=== PATIENT | female | born 1950 | race Caucasian/White ===

== ENCOUNTER → 2016-10-21 | Outpatient (CLI) | payer MEDICARE, MEDICAID ==
[~2016-10-21] MED LIST: AMLO5TAB2 PO; ASP81TEC PO; CALC-172 PO; ENAL10TA PO; FURO20TA4 PO; HCT25T PO; METO-333 PO; MULT-608 PO; NF-ESOM40C PO; POTA20PA3 PO
--- NOTE | 2016-10-21 19:29 | Diagnostic Imaging Report ---
Left breast diagnostic mammogram. 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 COMPARISON: 10/16/15. The current study was also evaluated with a Computer Aided Detection (CAD) system. FINDINGS: The patient is unable to tolerate the mammogram very well with pain and shortness of breath and there is limitation in the mammographic views particularly visualizing the posterior third of the breast tissue. When compared to the prior exam, the heterogenously dense parenchyma is stable with stable nodular pattern. Some of the nodular opacities are related to skin moles marked with skin markers. IMPRESSION: Limited exam with no adverse development. Ultrasound evaluation pending. ACR BI-RADS Category 0: Incomplete. (Needs additional imaging evaluation). Result letter will be mailed to the patient. Note: At least 10% of breast cancer is not imaged by mammography. Dictated by: Dictated on workstation # [id number]
--- NOTE | 2016-10-21 19:38 | Diagnostic Imaging Report ---
EXAMINATION: Left breast ultrasound. INDICATION: History of DCIS. FINDINGS: There is a simple cyst measuring 7 mm in the left breast at the 7-8 o'clock position. No solid masses are seen in the retroareolar region or four quadrants of the left breast. IMPRESSION: No suspicious abnormality. ACR BI-RADS Category 1: Negative. Dictated by: Dictated on workstation # [id number]
== END ==
LOC: RAD 13:26
PROVIDERS: ATTEND Nurse Practitioner Adult Health
DX: D05.12 Intraductal carcinoma in situ of left breast (principal)
CPT/HCPCS: 76641

== ENCOUNTER → 2016-10-28 | Outpatient (CLI) | payer MEDICARE, MEDICAID ==
[2016-10-28 13:07] LABS: BASOPHILS # (AUTO) 0.1 10^3/uL (0.0-0.1); BASOPHILS % (AUTO) 1 % (0-10); EOSINOPHILS # (AUTO) 0.3 10^3/uL (0.0-0.3); EOSINOPHILS % (AUTO) 3 % (0-10); LYMPHOCYTES # (AUTO) 2.2 X 10^3 (1.0-4.0); LYMPHOCYTES % (AUTO) 25 % (12-44); MEAN CORPUSCULAR HEMOGLOBIN 28 PG (25-34); MEAN CORPUSCULAR HGB CONC 32 G/DL (32-36); MEAN CORPUSCULAR VOLUME 87 FL (80-99); MEAN PLATELET VOLUME 10.4 FL (7.4-10.4); MONOCYTES # (AUTO) 0.7 X 10^3 (0.0-1.0); MONOCYTES % (AUTO) 8 % (0-12); NEUTROPHILS # (AUTO) 5.7 X 10^3 (1.8-7.8); NEUTROPHILS % (AUTO) 64 % (42-75); PLATELET COUNT 312 10^3/uL (130-400); RED BLOOD COUNT 4.61 10^6/uL (4.35-5.85); RED CELL DISTRIBUTION WIDTH 16.3 % (10.0-14.5); WHITE BLOOD COUNT 8.9 10^3/uL (4.3-11.0)
[2016-10-28 13:36] LABS: ALANINE AMINOTRANSFERASE 41 U/L (0-55); ALBUMIN 4.3 G/DL (3.2-4.5); ANION GAP 13 MMOL/L (5-14); ASPARTATE AMINO TRANSFERASE 30 U/L (5-34); BILIRUBIN,TOTAL 0.6 MG/DL (0.1-1.0); BLOOD UREA NITROGEN 18 MG/DL (7-18); BUN/CREATININE RATIO 25; CARBON DIOXIDE 29 MMOL/L (21-32); CHLORIDE 100 MMOL/L (98-107); CREATININE SERUM 0.73 MG/DL (0.60-1.30); GFR ESTIMATED > 60; GLUCOSE 132 MG/DL (70-105); POTASSIUM 4.1 MMOL/L (3.6-5.0); SODIUM 142 MMOL/L (135-145); TOTAL PROTEIN 7.7 G/DL (6.4-8.2)
== END ==
LOC: ONC 12:53
PROVIDERS: ATTEND Internal Medicine Hematology & Oncology
DX: D05.12 Intraductal carcinoma in situ of left breast (principal)
CPT/HCPCS: 36415; 80053; 85025; 99213

== ENCOUNTER 2017-01-02 08:52 | Outpatient (RCR) | payer MEDICARE, MEDICAID | END 2017-01-13 16:00 | disposition home or self-care (01) | LOC: WOUNDCARE 08:52 | PROVIDERS: ATTEND Internal Medicine | DX: E11.622 Type 2 diabetes mellitus with other skin ulcer (principal); L97.222 Non-pressure chronic ulcer of left calf with fat layer exposed | CPT/HCPCS: 11042; 15271; 99212 ==

== ENCOUNTER → 2017-01-16 | Outpatient (CLI) | payer MEDICARE, MEDICAID | LOC: WOUNDCARE 09:01 | PROVIDERS: ATTEND Internal Medicine | DX: E11.622 Type 2 diabetes mellitus with other skin ulcer (principal); L97.222 Non-pressure chronic ulcer of left calf with fat layer exposed | CPT/HCPCS: 11042 ==

== ENCOUNTER → 2017-01-23 | Outpatient (CLI) | payer MEDICARE, MEDICAID | LOC: WOUNDCARE 08:52 | PROVIDERS: ATTEND Internal Medicine | DX: E11.622 Type 2 diabetes mellitus with other skin ulcer (principal); L97.222 Non-pressure chronic ulcer of left calf with fat layer exposed | CPT/HCPCS: 11042; 87070; 87075; 87077; 87186; 87205 ==

== ENCOUNTER → 2017-02-05 | Outpatient (CLI) | payer MEDICARE, MEDICAID | LOC: WOUNDCARE 15:54 | PROVIDERS: ATTEND Internal Medicine | DX: E11.622 Type 2 diabetes mellitus with other skin ulcer (principal); L97.222 Non-pressure chronic ulcer of left calf with fat layer exposed ==

== ENCOUNTER → 2017-02-06 | Outpatient (CLI) | payer MEDICARE, MEDICAID | LOC: WOUNDCARE 08:53 | PROVIDERS: ATTEND Internal Medicine | DX: E11.622 Type 2 diabetes mellitus with other skin ulcer (principal); L97.222 Non-pressure chronic ulcer of left calf with fat layer exposed | CPT/HCPCS: 11042 ==

== ENCOUNTER → 2017-02-13 | Outpatient (CLI) | payer MEDICARE, MEDICAID | LOC: WOUNDCARE 09:01 | PROVIDERS: ATTEND Internal Medicine | DX: E11.622 Type 2 diabetes mellitus with other skin ulcer (principal); L97.222 Non-pressure chronic ulcer of left calf with fat layer exposed | CPT/HCPCS: 15271 ==

== ENCOUNTER → 2017-02-20 | Outpatient (CLI) | payer MEDICARE, MEDICAID | LOC: WOUNDCARE 08:56 | PROVIDERS: ATTEND Internal Medicine | DX: E11.622 Type 2 diabetes mellitus with other skin ulcer (principal); L97.222 Non-pressure chronic ulcer of left calf with fat layer exposed | CPT/HCPCS: 11042 ==

== ENCOUNTER → 2017-02-27 | Outpatient (CLI) | payer MEDICARE, MEDICAID | LOC: WOUNDCARE 08:46 | PROVIDERS: ATTEND Internal Medicine | DX: E11.622 Type 2 diabetes mellitus with other skin ulcer (principal); L97.222 Non-pressure chronic ulcer of left calf with fat layer exposed | CPT/HCPCS: 15271 ==

== ENCOUNTER → 2017-03-06 | Outpatient (CLI) | payer MEDICARE, MEDICAID | LOC: WOUNDCARE 09:08 | PROVIDERS: ATTEND Internal Medicine | DX: E11.622 Type 2 diabetes mellitus with other skin ulcer (principal); L97.222 Non-pressure chronic ulcer of left calf with fat layer exposed | CPT/HCPCS: 11042 ==

== ENCOUNTER → 2017-03-13 | Outpatient (CLI) | payer MEDICARE, MEDICAID | LOC: WOUNDCARE 09:02 | PROVIDERS: ATTEND Internal Medicine | DX: E11.622 Type 2 diabetes mellitus with other skin ulcer (principal); L97.222 Non-pressure chronic ulcer of left calf with fat layer exposed | CPT/HCPCS: 11042 ==

== ENCOUNTER → 2017-03-20 | Outpatient (CLI) | payer MEDICARE, MEDICAID | LOC: WOUNDCARE 09:16 | PROVIDERS: ATTEND Internal Medicine | DX: E11.622 Type 2 diabetes mellitus with other skin ulcer (principal); L97.222 Non-pressure chronic ulcer of left calf with fat layer exposed | CPT/HCPCS: 11042 ==

== ENCOUNTER → 2017-03-27 | Outpatient (CLI) | payer MEDICARE, MEDICAID | LOC: WOUNDCARE 08:55 | PROVIDERS: ATTEND Internal Medicine | DX: E11.622 Type 2 diabetes mellitus with other skin ulcer (principal); L97.222 Non-pressure chronic ulcer of left calf with fat layer exposed | CPT/HCPCS: 15271 ==

== ENCOUNTER → 2017-04-03 | Outpatient (CLI) | payer MEDICARE, MEDICAID | LOC: WOUNDCARE 08:58 | PROVIDERS: ATTEND Internal Medicine | DX: E11.622 Type 2 diabetes mellitus with other skin ulcer (principal); L97.222 Non-pressure chronic ulcer of left calf with fat layer exposed | CPT/HCPCS: 11042; 87070; 87075; 87101; 87205 ==

== ENCOUNTER 2017-04-18 12:11 | Outpatient (RCR) | payer MEDICARE, MEDICAID ==
[2017-04-14 13:40] VITALS: BP 128/89
[~2017-04-18] VITALS: Ht 152.4 cm; Wt 83.0 kg
[2017-04-18 12:10] VITALS: BP 132/90
== END 2017-07-13 | disposition home or self-care (01) ==
LOC: SDC 12:11
PROVIDERS: ATTEND Nurse Practitioner
DX: Z45.2 Encounter for adjustment and management of vascular access device (principal)
CPT/HCPCS: 76937

== ENCOUNTER → 2017-05-01 | Outpatient (CLI) | payer MEDICARE, MEDICAID | LOC: WOUNDCARE 08:58 | PROVIDERS: ATTEND Internal Medicine | DX: E11.622 Type 2 diabetes mellitus with other skin ulcer (principal); L97.222 Non-pressure chronic ulcer of left calf with fat layer exposed | CPT/HCPCS: 11042 ==

== ENCOUNTER → 2017-05-02 | Outpatient (CLI) | payer MEDICARE, MEDICAID ==
--- NOTE | 2017-05-02 12:01 | Anesthesia-Procedure Note ---
Procedure Start/Stop Time Date of Procedure: May 02, 2017 Start Time: 11:30 Brief History Patient admitted from [facility] for difficult IV start and consent signed. 20g hep lock started to patient's left forearm by SRNA. Lore[place] Stop Time: 11:50 MESHA MELENDEZ CRNA May 02, 2017 12:01
== END ==
LOC: SDC 11:23
PROVIDERS: ATTEND Nurse Practitioner
DX: Z45.2 Encounter for adjustment and management of vascular access device (principal); Z79.2 Long term (current) use of antibiotics

== ENCOUNTER → 2017-05-15 | Outpatient (CLI) | payer MEDICARE, MEDICAID | LOC: WOUNDCARE 08:56 | PROVIDERS: ATTEND Internal Medicine | DX: E11.622 Type 2 diabetes mellitus with other skin ulcer (principal); L97.222 Non-pressure chronic ulcer of left calf with fat layer exposed | CPT/HCPCS: 11042 ==

== ENCOUNTER → 2017-05-22 | Outpatient (CLI) | payer MEDICARE, MEDICAID | LOC: WOUNDCARE 09:04 | PROVIDERS: ATTEND Internal Medicine | DX: E11.622 Type 2 diabetes mellitus with other skin ulcer (principal); L97.222 Non-pressure chronic ulcer of left calf with fat layer exposed | CPT/HCPCS: 11042 ==

== ENCOUNTER → 2017-05-29 | Outpatient (CLI) | payer MEDICARE, MEDICAID | LOC: WOUNDCARE 09:04 | PROVIDERS: ATTEND Nurse Practitioner | DX: E11.622 Type 2 diabetes mellitus with other skin ulcer (principal); L97.222 Non-pressure chronic ulcer of left calf with fat layer exposed | CPT/HCPCS: 11042 ==

== ENCOUNTER → 2017-06-05 | Outpatient (CLI) | payer MEDICARE, MEDICAID | LOC: WOUNDCARE 09:03 | PROVIDERS: ATTEND Internal Medicine | DX: E11.622 Type 2 diabetes mellitus with other skin ulcer (principal); L97.222 Non-pressure chronic ulcer of left calf with fat layer exposed | CPT/HCPCS: 11042 ==

== ENCOUNTER → 2017-06-12 | Outpatient (CLI) | payer MEDICARE, MEDICAID | LOC: WOUNDCARE 09:12 | PROVIDERS: ATTEND Internal Medicine | DX: L97.222 Non-pressure chronic ulcer of left calf with fat layer exposed (principal) | CPT/HCPCS: 11042 ==

== ENCOUNTER → 2017-06-17 | Outpatient (CLI) | payer MEDICARE, MEDICAID | LOC: WOUNDCARE 09:16 | PROVIDERS: ATTEND Nurse Practitioner | DX: E11.622 Type 2 diabetes mellitus with other skin ulcer (principal); L97.222 Non-pressure chronic ulcer of left calf with fat layer exposed | CPT/HCPCS: 11042 ==

== ENCOUNTER → 2017-06-26 | Outpatient (CLI) | payer MEDICARE, MEDICAID | LOC: WOUNDCARE 08:53 | PROVIDERS: ATTEND Internal Medicine | DX: E11.622 Type 2 diabetes mellitus with other skin ulcer (principal); L97.222 Non-pressure chronic ulcer of left calf with fat layer exposed | CPT/HCPCS: 11042; 87070; 87075; 87077; 87101; 87186; 87205 ==

== ENCOUNTER → 2017-07-03 | Outpatient (CLI) | payer MEDICARE, MEDICAID | LOC: WOUNDCARE 08:54 | PROVIDERS: ATTEND Internal Medicine | DX: E11.622 Type 2 diabetes mellitus with other skin ulcer (principal); L97.222 Non-pressure chronic ulcer of left calf with fat layer exposed | CPT/HCPCS: 11042 ==

== ENCOUNTER → 2017-07-10 | Outpatient (CLI) | payer MEDICARE, MEDICAID | LOC: WOUNDCARE 08:54 | PROVIDERS: ATTEND Internal Medicine | DX: E11.622 Type 2 diabetes mellitus with other skin ulcer (principal); L97.222 Non-pressure chronic ulcer of left calf with fat layer exposed | CPT/HCPCS: 11042 ==

== ENCOUNTER → 2017-07-17 | Outpatient (CLI) | payer MEDICARE, MEDICAID | LOC: WOUNDCARE 08:47 | PROVIDERS: ATTEND Internal Medicine | DX: E11.622 Type 2 diabetes mellitus with other skin ulcer (principal); L97.222 Non-pressure chronic ulcer of left calf with fat layer exposed | CPT/HCPCS: 11042 ==

== ENCOUNTER → 2017-07-24 | Outpatient (CLI) | payer MEDICARE, MEDICAID | LOC: WOUNDCARE 08:58 | PROVIDERS: ATTEND Internal Medicine | DX: L97.222 Non-pressure chronic ulcer of left calf with fat layer exposed (principal); E11.622 Type 2 diabetes mellitus with other skin ulcer | CPT/HCPCS: 11042 ==

== ENCOUNTER → 2017-07-31 | Outpatient (CLI) | payer MEDICARE, MEDICAID | LOC: WOUNDCARE 09:01 | PROVIDERS: ATTEND Internal Medicine | DX: E11.622 Type 2 diabetes mellitus with other skin ulcer (principal); L97.222 Non-pressure chronic ulcer of left calf with fat layer exposed | CPT/HCPCS: 11042; 87070; 87075; 87101; 87205 ==

== ENCOUNTER → 2017-08-07 | Outpatient (CLI) | payer MEDICARE, MEDICAID | LOC: WOUNDCARE 08:56 | PROVIDERS: ATTEND Internal Medicine | DX: E11.622 Type 2 diabetes mellitus with other skin ulcer (principal); L97.222 Non-pressure chronic ulcer of left calf with fat layer exposed | CPT/HCPCS: 11042 ==

== ENCOUNTER → 2017-08-14 | Outpatient (CLI) | payer MEDICARE, MEDICAID | LOC: WOUNDCARE 09:01 | PROVIDERS: ATTEND Internal Medicine | DX: E11.622 Type 2 diabetes mellitus with other skin ulcer (principal); L97.222 Non-pressure chronic ulcer of left calf with fat layer exposed | CPT/HCPCS: 11042 ==

== ENCOUNTER → 2017-08-21 | Outpatient (CLI) | payer MEDICARE, MEDICAID | LOC: WOUNDCARE 08:56 | PROVIDERS: ATTEND Internal Medicine | DX: E11.622 Type 2 diabetes mellitus with other skin ulcer (principal); L97.222 Non-pressure chronic ulcer of left calf with fat layer exposed | CPT/HCPCS: 11042 ==

== ENCOUNTER → 2017-08-28 | Outpatient (CLI) | payer MEDICARE, MEDICAID | LOC: WOUNDCARE 08:57 | PROVIDERS: ATTEND Internal Medicine | DX: E11.622 Type 2 diabetes mellitus with other skin ulcer (principal); L97.222 Non-pressure chronic ulcer of left calf with fat layer exposed | CPT/HCPCS: 11042 ==

== ENCOUNTER → 2017-09-04 | Outpatient (CLI) | payer MEDICARE, MEDICAID | LOC: WOUNDCARE 08:53 | PROVIDERS: ATTEND Nurse Practitioner | DX: E11.622 Type 2 diabetes mellitus with other skin ulcer (principal); L97.222 Non-pressure chronic ulcer of left calf with fat layer exposed | CPT/HCPCS: 11042 ==

== ENCOUNTER → 2017-09-11 | Outpatient (CLI) | payer MEDICARE, MEDICAID | LOC: WOUNDCARE 08:47 | PROVIDERS: ATTEND Internal Medicine | DX: E11.622 Type 2 diabetes mellitus with other skin ulcer (principal); L97.222 Non-pressure chronic ulcer of left calf with fat layer exposed | CPT/HCPCS: 11042; 87070; 87075; 87101; 87205 ==

== ENCOUNTER → 2017-09-18 | Outpatient (CLI) | payer MEDICARE, MEDICAID | LOC: WOUNDCARE 09:51 | PROVIDERS: ATTEND Internal Medicine | DX: E11.622 Type 2 diabetes mellitus with other skin ulcer (principal); L97.222 Non-pressure chronic ulcer of left calf with fat layer exposed | CPT/HCPCS: 11042 ==

== ENCOUNTER → 2017-09-25 | Outpatient (CLI) | payer MEDICARE, MEDICAID | LOC: WOUNDCARE 08:53 | PROVIDERS: ATTEND Internal Medicine | DX: E11.622 Type 2 diabetes mellitus with other skin ulcer (principal); L97.222 Non-pressure chronic ulcer of left calf with fat layer exposed | CPT/HCPCS: 11042 ==

== ENCOUNTER → 2017-10-09 | Outpatient (CLI) | payer MEDICARE, MEDICAID | LOC: WOUNDCARE 08:42 | PROVIDERS: ATTEND Internal Medicine | DX: E11.622 Type 2 diabetes mellitus with other skin ulcer (principal); L97.222 Non-pressure chronic ulcer of left calf with fat layer exposed | CPT/HCPCS: 11042 ==

== ENCOUNTER → 2017-10-20 | Outpatient (CLI) | payer MEDICARE, MEDICAID ==
--- NOTE | 2017-10-20 18:57 | Diagnostic Imaging Report ---
EXAMINATION: Ultrasound of The left breast, complete. INDICATION: DCIS. FINDINGS: It is my understanding that the patient has a diagnosis of DCIS. The previous left breast ultrasound exam of 10/21/2016 noted a 7 mm cyst in the left breast at the 7-8 o'clock position. There was no evidence of malignancy. On this exam, there is no discrete solid or cystic mass evident. There is no shadowing to suggest malignancy either. It is my understanding that the patient has declined mammogram. The patient does have cerebral palsy. IMPRESSION: There is no evidence for malignancy. ACR BI-RADS Category 1: Negative. Dictated by: Dictated on workstation # [id number]
== END ==
LOC: RAD 14:07
PROVIDERS: ATTEND Internal Medicine Hematology & Oncology
DX: D05.12 Intraductal carcinoma in situ of left breast (principal)
CPT/HCPCS: 76641

== ENCOUNTER → 2017-10-23 | Outpatient (CLI) | payer MEDICARE, MEDICAID | LOC: WOUNDCARE 09:02 | PROVIDERS: ATTEND Internal Medicine | DX: E11.622 Type 2 diabetes mellitus with other skin ulcer (principal); L97.222 Non-pressure chronic ulcer of left calf with fat layer exposed | CPT/HCPCS: 11042; 87070; 87075; 87101; 87205 ==

== ENCOUNTER → 2017-10-27 | Outpatient (CLI) | payer MEDICARE, MEDICAID ==
[2017-10-27 13:25] LABS: BASOPHILS # (AUTO) 0.1 10^3/uL (0.0-0.1); BASOPHILS % (AUTO) 1 % (0-10); EOSINOPHILS # (AUTO) 0.3 10^3/uL (0.0-0.3); EOSINOPHILS % (AUTO) 4 % (0-10); HEMATOCRIT 38 % (35-52); HEMOGLOBIN 11.9 G/DL (11.5-16.0); LYMPHOCYTES # (AUTO) 1.7 X 10^3 (1.0-4.0); LYMPHOCYTES % (AUTO) 22 % (12-44); MEAN CORPUSCULAR HEMOGLOBIN 25 PG (25-34); MEAN CORPUSCULAR HGB CONC 31 G/DL (32-36); MEAN CORPUSCULAR VOLUME 81 FL (80-99); MEAN PLATELET VOLUME 10.4 FL (7.4-10.4); MONOCYTES # (AUTO) 0.7 X 10^3 (0.0-1.0); MONOCYTES % (AUTO) 8 % (0-12); NEUTROPHILS # (AUTO) 5.3 X 10^3 (1.8-7.8); NEUTROPHILS % (AUTO) 66 % (42-75); PLATELET COUNT 307 10^3/uL (130-400); RED BLOOD COUNT 4.69 10^6/uL (4.35-5.85); RED CELL DISTRIBUTION WIDTH 17.7 % (10.0-14.5); WHITE BLOOD COUNT 8.1 10^3/uL (4.3-11.0)
[2017-10-27 13:45] LABS: ALANINE AMINOTRANSFERASE 38 U/L (0-55); ALBUMIN 4.4 GM/DL (3.2-4.5); ALKALINE PHOSPHATASE 62 U/L (40-136); BILIRUBIN,TOTAL 0.4 MG/DL (0.1-1.0); BUN/CREATININE RATIO 22; CARBON DIOXIDE 24 MMOL/L (21-32); CHLORIDE 101 MMOL/L (98-107); CREATININE SERUM 0.74 MG/DL (0.60-1.30); GFR ESTIMATED > 60; GLUCOSE 187 MG/DL (70-105); POTASSIUM 4.1 MMOL/L (3.6-5.0); SODIUM 140 MMOL/L (135-145); TOTAL PROTEIN 7.9 GM/DL (6.4-8.2)
== END ==
LOC: ONC 13:16
PROVIDERS: ATTEND Internal Medicine Hematology & Oncology
DX: Z08 Encounter for follow-up examination after completed treatment for malignant neoplasm (principal); Z85.3 Personal history of malignant neoplasm of breast; G80.9 Cerebral palsy, unspecified; E11.9 Type 2 diabetes mellitus without complications; I10 Essential (primary) hypertension; Z79.84 Long term (current) use of oral hypoglycemic drugs; Z79.899 Other long term (current) drug therapy; Z79.82 Long term (current) use of aspirin
CPT/HCPCS: 36415; 80053; 85025; 99213

== ENCOUNTER → 2017-11-13 | Outpatient (CLI) | payer MEDICARE, MEDICAID | LOC: WOUNDCARE 09:06 | PROVIDERS: ATTEND Internal Medicine | DX: E11.622 Type 2 diabetes mellitus with other skin ulcer (principal); L97.222 Non-pressure chronic ulcer of left calf with fat layer exposed | CPT/HCPCS: 11042 ==

== ENCOUNTER → 2017-12-23 | Outpatient (CLI) | payer MEDICARE, MEDICAID | LOC: WOUNDCARE 09:10 | PROVIDERS: ATTEND Nurse Practitioner | DX: E11.622 Type 2 diabetes mellitus with other skin ulcer (principal); L97.222 Non-pressure chronic ulcer of left calf with fat layer exposed | CPT/HCPCS: 11042 ==

== ENCOUNTER → 2018-01-08 | Outpatient (CLI) | payer MEDICARE, MEDICAID | LOC: WOUNDCARE 09:05 | PROVIDERS: ATTEND Nurse Practitioner | DX: E11.622 Type 2 diabetes mellitus with other skin ulcer (principal); L97.222 Non-pressure chronic ulcer of left calf with fat layer exposed | CPT/HCPCS: 99213 ==

== ENCOUNTER → 2018-01-29 | Outpatient (CLI) | payer MEDICARE, MEDICAID | LOC: WOUNDCARE 08:57 | PROVIDERS: ATTEND Nurse Practitioner | DX: E11.622 Type 2 diabetes mellitus with other skin ulcer (principal); L97.222 Non-pressure chronic ulcer of left calf with fat layer exposed | CPT/HCPCS: 99212 ==

== ENCOUNTER → 2018-02-26 | Outpatient (CLI) | payer MEDICARE, MEDICAID | LOC: WOUNDCARE 08:54 | PROVIDERS: ATTEND Nurse Practitioner | DX: E11.622 Type 2 diabetes mellitus with other skin ulcer (principal); L97.222 Non-pressure chronic ulcer of left calf with fat layer exposed | CPT/HCPCS: 99213 ==

== ENCOUNTER → 2018-03-26 | Outpatient (CLI) | payer MEDICARE, MEDICAID | LOC: WOUNDCARE 09:01 | PROVIDERS: ATTEND Nurse Practitioner | DX: E11.622 Type 2 diabetes mellitus with other skin ulcer (principal); L97.222 Non-pressure chronic ulcer of left calf with fat layer exposed | CPT/HCPCS: 11042 ==

== ENCOUNTER → 2018-04-02 | Outpatient (CLI) | payer MEDICARE, MEDICAID | LOC: WOUNDCARE 08:54 | PROVIDERS: ATTEND Nurse Practitioner | DX: E11.622 Type 2 diabetes mellitus with other skin ulcer (principal); L97.222 Non-pressure chronic ulcer of left calf with fat layer exposed | CPT/HCPCS: 11042 ==

== ENCOUNTER → 2018-04-16 | Outpatient (CLI) | payer MEDICARE, MEDICAID | LOC: WOUNDCARE 08:54 | PROVIDERS: ATTEND Nurse Practitioner | DX: E11.622 Type 2 diabetes mellitus with other skin ulcer (principal); L97.222 Non-pressure chronic ulcer of left calf with fat layer exposed | CPT/HCPCS: 11100; 87070; 87075; 87077; 87186; 87205; 88305 ==

== ENCOUNTER → 2018-04-21 | Outpatient (CLI) | payer MEDICARE, MEDICAID | LOC: WOUNDCARE 10:13 | PROVIDERS: ATTEND Nurse Practitioner | DX: E11.622 Type 2 diabetes mellitus with other skin ulcer (principal); L97.222 Non-pressure chronic ulcer of left calf with fat layer exposed; C44.799 Other specified malignant neoplasm of skin of left lower limb, including hip | CPT/HCPCS: 99212 ==

== ENCOUNTER 2018-05-12 05:30 | Outpatient (CLI) | payer MEDICARE, MEDICAID ==
[~2018-05-12] VITALS: Ht 152.4 cm; Wt 80.7 kg
[2018-05-12] MEDS ORDERED: PRED5DRO24 OU (15:09)
[2018-05-12] MEDS ORDERED: CALC-654 PO (15:09)
[2018-05-12] MEDS ORDERED: METF-399 PO (15:09)
[2018-05-12] MEDS ORDERED: MULT1TAB69 PO (15:09)
[2018-05-12] MEDS ORDERED: ASPI-999 PO (15:09)
[2018-05-12] MEDS ORDERED: OMEP20TA33 PO (15:09)
[2018-05-12] MEDS ORDERED: HYDR25TA4 PO (15:09)
[2018-05-12] MEDS ORDERED: METO-333 PO (15:09)
[2018-05-12] MEDS ORDERED: POTA10TA10 PO (15:09)
[2018-05-12] MEDS ORDERED: CETI10TA17 PO (15:09)
[2018-05-12] MEDS ORDERED: FURO20TA4 PO (15:09)
[2018-05-12] MEDS ORDERED: AMLO5TAB7 PO (15:09)
[2018-05-12] MEDS ORDERED: ENAL10TA PO (15:09)
[2018-05-14] MEDS ORDERED: ACHD5005 PO (10:16)
== END 2018-05-12 15:19 | disposition home or self-care (01) ==
LOC: PREOP 05:30
PROVIDERS: ATTEND Otolaryngology Otolaryngology/Facial Plastic Surgery
DX: Z01.818 Encounter for other preprocedural examination (principal)

== ENCOUNTER 2018-05-14 09:52 | Day surgery (SDC) | payer MEDICARE, MEDICAID ==
[~2018-05-14] VITALS: Ht 152.4 cm; Wt 81.2 kg
[~2018-05-14 09:52] MED LIST changes: +AMLO5TAB7 PO; +ASPI-999 PO; +CALC-654 PO; +CETI10TA17 PO; +HYDR25TA4 PO; +METF-399 PO; +MULT1TAB69 PO; +OMEP20TA33 PO; +POTA10TA10 PO; +PRED5DRO24 OU
--- NOTE | 2018-05-14 10:14 | Progress Note-Pre Operative ---
Pre-Operative Progress Note H&P Reviewed The H&P was reviewed, patient examined and no changes noted. 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
[2018-05-14] MEDS ORDERED: HYDROcodone/APAP 5 MG/325 MG (LORTAB) TAB PO ONE (10:15)
[2018-05-14] MEDS ORDERED: ACETAMINOPHEN 325 MG TABLET PO PRN (10:15)
[2018-05-14] MEDS ORDERED: ONDANSETRON 4 MG/2 ML (SDV) Z0FRAN IVP PRN ×2 (10:15→14:30)
[2018-05-14] MEDS ORDERED: morphine INJ 10 MG/ML 1ML (SYR OR VIAL) IVP PRN (10:15)
[2018-05-14] MEDS ORDERED: ACHD5005 PO (10:16)
--- NOTE | 2018-05-14 10:19 | Discharge Inst-Surgical ---
D/C Lap Instructions-LUL New, Converted, or Re-Newed RX: RX on Chart Follow Up Appt in 1 week Activity as tolerated No driving for 24 hours No driving while on pain medications wound: keep both areas clean and dry. leave opsite on leg wound until seen in office. Regular Diet Symptoms to Report: Fever over 101 degree F, Nausea/Vomiting Infection Signs and Symptoms to report: Increased redness, Foul odor of wound, Increased drainage Bathing instructions: May shower Operative Area Clean/Dry; Keep incision clean/dry If any problems/questions: Contact your physician or go to Emergency Room CEM MCCARTY MD May 14, 2018 10:18 am
[2018-05-14] MEDS ORDERED: ceFAZolin 2 GM IV Premixed 50 ML IV ONE (10:30)
[2018-05-14 10:35] VITALS: BP 146/81
[2018-05-14] MEDS: LACTATED RINGERS 1,000 ML IV PRN ×2 (10:50→14:17)
[2018-05-14] MEDS ORDERED: proPOfol 200 MG/20 ML (DIPRIVAN) VIAL IV ONE (10:56)
[2018-05-14] MEDS ORDERED: fentaNYL INJECTION 100 MCG/2 ML AMP ONE (10:57)
[2018-05-14] MEDS ORDERED: MIDAZOLAM 2 MG/2 ML (VERSED) VIAL ONE (10:57)
[2018-05-14] MEDS ORDERED: LIDOCAINE PF 2% 5 ML (XYLOCAINE) VIAL ONE (10:58)
[2018-05-14] MEDS ORDERED: BUP/EPI 0.5% 1:200,000 (SENSORCAINE) 30 ML VIAL ONE (11:13)
[2018-05-14] MEDS ORDERED: LIDOCAINE 1% INJ 20 ML 20 ML VIAL ONE (13:08)
[2018-05-14] MEDS ORDERED: EPINEPHrine INJECTION 1 MG/ML AMP ONE (13:25)
[2018-05-14] MEDS ORDERED: PROPOFOL INJECTION 50 ML IV ONE (13:45)
--- NOTE | 2018-05-14 14:04 | Progress Note-Post Operative ---
Post-Operative Progess Note Surgeon (s)/Decatizer (s) Surgeon CEM MCCARTY MD Decatizer: silas johansen HARDWARE DEVELOPER Pre-Operative Diagnosis basosquamous cell ca left leg(6x5cm) Post-Operative Diagnosis same Procedure & Operative Findings Date of Procedure 05/14/18 Procedure Performed/Findings excision squamous cell skni ca left leg(6x5cm) with STSG from left lat thigh. Anesthesia Type MAC with local Estimated Blood Loss Estimated blood loss (mL): minimal Specimens/Packing Specimens Removed left leg skin lesion. CEM MCCARTY MD May 14, 2018 2:04 pm
[2018-05-14] MEDS ORDERED: HYDROmorphone 2 MG/ML VIAL (DILAUDID) IV ONE (14:30)
[2018-05-14 14:45] VITALS: BP 133/63
[2018-05-14 15:15] VITALS: BP 144/64
[2018-05-14 15:50] VITALS: BP 144/64
--- NOTE | 2018-05-14 23:40 | OPERATIVE REPORT ---
DATE OF SERVICE: 05/14/2018 ATTENDING PRIMARY CARE PHYSICIAN: Dr. lA. PREOPERATIVE DIAGNOSIS: Squamous cell skin cancer, left lateral dean 6 x 5 cm in size. POSTOPERATIVE DIAGNOSIS: Squamous cell skin cancer, left lateral dean 6 x 5 cm in size. PROCEDURE: Excision, squamous cell skin cancer, left lower extremity with split-thickness skin graft taken from the left lateral thigh. SURGEON: Cem Blackwood MD FOOD SERVICE DRIVER: Hernando Walters APRN. ANESTHESIA: Monitored anesthesia care with local. ESTIMATED BLOOD LOSS: Minimal. FINDINGS: A large skin lesion through the layers of the skin, however, not encompassing the subcutaneous fat. The total dimensions of the lesion were 6 x 5 cm in size. DISPOSITION: The patient tolerated the procedure well. INDICATIONS: The patient is a 67-year-old female known to us. We had seen her in 2016 for benign skin tags of the middle back and right flank area, which were excised in the office. She had noticed a lesion of the lower leg for the past year and has been seeing wound care for a number of different conservative medical interventions; however, the lesion has grown slightly larger in size. 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 The lesion is approximately 6 x 5 cm in size. DESCRIPTION OF PROCEDURE: The patient was brought to the operating room, laid supine on the table. After adequate IV pain and sedative medications and monitored anesthesia care, the lesion and the left lateral thigh were prepped and draped in standard surgical fashion. 0.5% Marcaine with epinephrine was used to anesthetize the skin lesion and then 1% lidocaine was used to anesthetize the harvest site of the left lateral thigh. The dimensions of the lesion were then measured out and approximately 6 x 5 cm in size. This was measured out and fully excised using a 15 blade. Thus, we went all the way to the subcutaneous fat with no deep extensions identified. Good hemostasis was observed with electrocautery as well as direct pressure. We then proceeded with harvesting of the split-thickness skin graft taken from the left lateral thigh. In the anesthetized area, a 0.02 inch split-thickness skin graft was taken with a hydraulic dermatome 2 inches in width, approximately 2 inches in length as well. This was meshed 1:1.5 ratio. The harvest site was then covered with epinephrine-soaked sponges. The graft was then sutured to the edges of the wound excision site and to the base of the subcutaneous fat using interrupted 4-0 Prolene sutures. The graft was then covered with Tisseel fibrin glue followed by a nonstick followed by 4 x 4 gauze followed by a gauze wrap followed by Coban. Good hemostasis was observed on the donor site and was covered with a large Op-Site. The patient tolerated the procedure well. We will have her follow up in office in 1 week to reevaluate the wounds as well as to remove the sutures in a stepwise fashion and evaluate both of the wounds as well. She will be instructed to keep the areas clean and dry. Job ID: [id number] DocumentID: [id number] Dictated Date: 05/14/2018 14:12:20 Assistant Scientist Date: 05/14/2018 23:39:06 Dictated By: CEM BLACKWOOD MD
--- OUTSIDE RECORDS SUMMARY | 2018-05-15 00:30 | XMS REPORT | Clinical Summary ---
Author Author [facility] Organization [facility] Address Unknown Phone Unavailable Care Team Providers Care Level Vial Inspector And Tester Name Role Phone PCP Unavailable Allergies Not on File Current Medications Not on file Active Problems Not on file Social History Tobacco Use Types Packs/Day Years Used Date Never Assessed Sex Assigned at Date Recorded Not on file Last Filed Vital Signs Not on file Plan of Treatment Not on file Results Not on filefrom Last 3 Months
--- OUTSIDE RECORDS SUMMARY | 2018-05-15 00:33 | XMS REPORT | Continuity of Care Document ---
Author Author [facility] Organization [facility] Address Unknown Phone Unavailable Allergies Active Description Code Type Severity Reaction Onset Reported/Identified Relationship to Patient Clinical Status Yes amoxicillin trihydrate [id number] Drug Allergy Unknown N/A 06/27/2011 Yes potassium clavulanate [id number] Drug Allergy Unknown N/A 06/27/2011 Medications There is no data. 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 07/05/2011 Ot 252.00 HYPERPARATHYROIDISM, UNSPECIFIED 07/05/2011 Ot 311 DEPRESSIVE DISORDER NEC 07/05/2011 Ot 343.9 CEREBRAL PALSY NOS 07/05/2011 Ot 401.9 HYPERTENSION NOS 07/05/2011 Ot 530.81 ESOPHAGEAL REFLUX 07/05/2011 Ot V46.3 WHEELCHAIR DEPENDENCE 09/27/2014 RAMEZ, BOBAN N Ot 233.0 09/27/2014 RAMEZ, BOBAN N Ot 793.89 09/27/2014 RAMEZ, BOBAN N Ot 233.0 09/27/2014 RAMEZ, BOBAN N Ot 793.89 09/27/2014 RAMEZ, BOBAN N Ot 233.0 09/27/2014 RAMEZ, BOBAN N Ot 793.89 10/05/2014 RAMEZ, BOBAN N Ot 233.0 10/05/2014 RAMEZ, BOBAN N Ot 793.89 10/05/2014 RAMEZ, BOBAN N Ot 233.0 10/05/2014 RAMEZ, BOBAN N Ot 793.89 10/05/2014 RAMEZ, BOBAN N Ot 233.0 10/05/2014 RAMEZ, BOBAN N Ot 793.89 10/07/2014 RAMEZ, BOBAN N Ot 233.0 10/07/2014 LEONIDAS MYRICK N Ot 793.89 11/12/2014 LEONIDAS MYRICK N Ot 233.0 11/12/2014 LEONIDAS MYRICK N Ot 793.89 11/25/2014 SANDERSONCLAUS De La Rosa S DIRECTOR OPERATING Ot 250.00 11/25/2014 SANDERSONCLAUS S DIRECTOR OPERATING Ot 343.9 11/25/2014 SANDERSONCLAUS S DIRECTOR OPERATING Ot V13.89 11/25/2014 SANDERSONISSAAH S DIRECTOR OPERATING Ot V45.71 11/25/2014 SANDERSONCLAUS S DIRECTOR OPERATING Ot V58.69 11/25/2014 SANDERSONCLAUS S DIRECTOR OPERATING Ot V67.09 11/28/2014 SANDERSONCLAUS S DIRECTOR OPERATING Ot 250.00 11/28/2014 SANDERSONCLAUS S DIRECTOR OPERATING Ot 343.9 11/28/2014 SANDERSONCLAUS S DIRECTOR OPERATING Ot V13.89 11/28/2014 SANDERSON CLAUS S DIRECTOR OPERATING Ot V45.71 11/28/2014 SANDERSONCLAUS S DIRECTOR OPERATING Ot V58.69 11/28/2014 SANDERSONCLAUS S DIRECTOR OPERATING Ot V67.09 11/29/2014 LEONIDAS MYRICK N Ot 233.0 11/29/2014 LEONIDAS MYRICK N Ot 793.89 12/01/2014 LEONIDAS MYRICK N Ot 233.0 12/01/2014 LEONIDAS MYRICK N Ot 793.89 12/06/2014 SANDERSONCLAUS De La Rosa S DIRECTOR OPERATING Ot 250.00 12/06/2014 SANDERSONCLAUS S DIRECTOR OPERATING Ot 343.9 12/06/2014 SANDERSONCLAUS S DIRECTOR OPERATING Ot V13.89 12/06/2014 SANDERSONCLAUS S DIRECTOR OPERATING Ot V45.71 12/06/2014 SANDERSONCLAUS S DIRECTOR OPERATING Ot V58.69 12/06/2014 SANDERSON CLAUS S DIRECTOR OPERATING Ot V67.09 02/15/2015 SANDERSON CLAUS S DIRECTOR OPERATING Ot 793.89 10/16/2015 Ot 793.81 MAMMOGRAPHIC MICROCLACIFICATION 10/16/2015 Ot V76.12 OTH SCREEN MAMMO-MALIGN NEOPLASM OF JOVAN 10/16/2015 Ot 793.81 MAMMOGRAPHIC MICROCLACIFICATION 10/16/2015 Ot 793.81 MAMMOGRAPHIC MICROCLACIFICATION 10/16/2015 Ot 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 10/16/2015 Ot 252.1 HYPOPARATHYROIDISM 10/16/2015 Ot 401.9 HYPERTENSION NOS 10/16/2015 Ot 610.4 MAMMARY DUCT ECTASIA 10/16/2015 Ot 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 10/16/2015 Ot 272.0 PURE HYPERCHOLESTEROLEM 10/16/2015 Ot 343.9 CEREBRAL PALSY NOS 10/16/2015 Ot 401.9 HYPERTENSION NOS 10/16/2015 Ot 530.81 ESOPHAGEAL REFLUX 10/16/2015 Ot V16.3 FAMILY HX- BREAST MALIG 10/16/2015 Ot V58.66 LONG-TERM ( CURRENT) USE OF ASPIRIN 10/16/2015 Ot V58.69 OTH MED,LT, CURRENT USE 10/16/2015 Ot 174.9 MALIGN NEOPL BREAST NOS 10/16/2015 Ot V72.63 PRE- PROCEDURAL LABORATORY EXAMINATION 10/16/2015 Ot V74.8 SCREEN- BACTERIAL DIS NEC 10/16/2015 Ot 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 10/16/2015 Ot 343.9 CEREBRAL PALSY NOS 10/16/2015 Ot V45.71 ACQUIRED ABSENCE OF BREAST AND NIPPLE 10/16/2015 Ot V58.69 OTH MED,LT, CURRENT USE 10/16/2015 Ot 793.81 MAMMOGRAPHIC MICROCLACIFICATION 10/16/2015 Ot V15.89 HX-HEALTH HAZARDS NEC 10/16/2015 Ot V76.11 SCRN MAMMO- HIGH RISK PT, MALIGNANT NEOPL 10/16/2015 Ot 343.9 CEREBRAL PALSY NOS 10/16/2015 Ot 790.6 ABN BLOOD CHEMISTRY NEC 10/16/2015 Ot V10.3 HX OF BREAST MALIGNANCY 10/16/2015 Ot V45.71 ACQUIRED ABSENCE OF BREAST AND NIPPLE 10/16/2015 Ot V58.69 OTH MED,LT, CURRENT USE 10/16/2015 Ot V67.09 SURGERY FOLLOW-UP, OTHER SURGERY 10/16/2015 Ot 174.9 MALIGN NEOPL BREAST NOS 10/16/2015 Ot 793.81 MAMMOGRAPHIC MICROCLACIFICATION 10/16/2015 Ot 250.00 DIAB ENZO WO COMPL, TYPE II OR UNSPEC TY 10/16/2015 Ot 343.9 CEREBRAL PALSY NOS 10/16/2015 Ot 790.6 ABN BLOOD CHEMISTRY NEC 10/16/2015 Ot V10.3 HX OF BREAST MALIGNANCY 10/16/2015 Ot V45.71 ACQUIRED ABSENCE OF BREAST AND NIPPLE 10/16/2015 Ot V58.69 OTH MED,LT, CURRENT USE 10/16/2015 Ot V67.09 SURGERY FOLLOW-UP, OTHER SURGERY 10/16/2015 Ot 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 10/16/2015 Ot 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 10/16/2015 CLAUS SANDERSON DIRECTOR OPERATING Ot 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 10/16/2015 CLAUS SANDERSON S DIRECTOR OPERATING Ot 793.89 OTH (ABN) FINDINGS ON RADIOLOGICAL EXAMI 10/16/2015 LEONIDAS MYRICK Ot 250.00 DIAB ENZO WO COMPL, TYPE II OR UNSPEC TY 10/16/2015 LEONIDAS MYRICK Anurag Ot 343.9 CEREBRAL PALSY NOS 10/16/2015 LEONIDAS MYRICK Anurag Ot V10.3 HX OF BREAST MALIGNANCY 10/16/2015 LEONIDAS MYRICK Anurag Ot V45.71 ACQUIRED ABSENCE OF BREAST AND NIPPLE 10/16/2015 LEONIDAS MYRICK Anurag Ot V58.69 OTH MED,LT,CURRENT USE 10/16/2015 LEONIDAS MYRICK N Ot V67.09 SURGERY FOLLOW-UP, OTHER SURGERY 10/16/2015 CLAUS SANDERSON DIRECTOR OPERATING Ot 250.00 DIAB ENZO WO COMPL, TYPE II OR UNSPEC TY 10/16/2015 CLAUS SANDERSON S DIRECTOR OPERATING Ot 343.9 CEREBRAL PALSY NOS 10/16/2015 CLAUS SANDERSON DIRECTOR OPERATING Ot 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 10/16/2015 CLAUS SANDERSON DIRECTOR OPERATING Ot V13.89 PERSONAL HISTORY OF OTHER SPECIFIED DISE 10/16/2015 CLAUS SANDERSON DIRECTOR OPERATING Ot V45.71 ACQUIRED ABSENCE OF BREAST AND NIPPLE 10/16/2015 CLAUS SANDERSON DIRECTOR OPERATING Ot V58.69 OTH MED,LT,CURRENT USE 10/16/2015 CLAUS SANDERSON S DIRECTOR OPERATING Ot V67.09 SURGERY FOLLOW-UP, OTHER SURGERY 10/16/2015 CLAUS SANDERSON S DIRECTOR OPERATING Ot 793.89 OTH (ABN) FINDINGS ON RADIOLOGICAL EXAMI 10/16/2015 LEONIDAS MYRICK Anurag Ot 343.9 CEREBRAL PALSY NOS 10/16/2015 LEONIDAS MYRICK Ot V13.89 PERSONAL HISTORY OF OTHER SPECIFIED DISE 10/16/2015 LEONIDAS MYRICK Ot V45.71 ACQUIRED ABSENCE OF BREAST AND NIPPLE 10/16/2015 LEONIDAS MYRICK Ot V58.69 OTH MED,LT,CURRENT USE 10/16/2015 LEONIDAS MYRICK Ot V67.09 SURGERY FOLLOW-UP, OTHER SURGERY 10/16/2015 LEONIDAS MYRICK Ot 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 10/16/2015 LEONIDAS MYRICK Ot 793.89 OTH (ABN) FINDINGS ON RADIOLOGICAL EXAMI 10/16/2015 CLAUS SANDERSON DIRECTOR OPERATING Ot 250.00 DIAB ENZO WO COMPL, TYPE II OR UNSPEC TY 10/16/2015 CLAUS SANDERSON DIRECTOR OPERATING Ot 343.9 CEREBRAL PALSY NOS 10/16/2015 CLAUS SANDERSON DIRECTOR OPERATING Ot V13.89 PERSONAL HISTORY OF OTHER SPECIFIED DISE 10/16/2015 CLAUS SANDERSON DIRECTOR OPERATING Ot V45.71 ACQUIRED ABSENCE OF BREAST AND NIPPLE 10/16/2015 CLAUS SANDERSON DIRECTOR OPERATING Ot V58.69 OTH MED,LT,CURRENT USE 10/16/2015 CLAUS SANDERSON DIRECTOR OPERATING Ot V67.09 SURGERY FOLLOW-UP, OTHER SURGERY 10/18/2015 CLAUS SANDERSON DIRECTOR OPERATING Ot 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 10/19/2015 CLAUS SANDERSON DIRECTOR OPERATING Ot 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 11/02/2015 CLAUS SANDERSON DIRECTOR OPERATING Ot 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 11/07/2015 CLAUS SANDERSON DIRECTOR OPERATING Ot 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 2015 CLAUS SANDERSON DIRECTOR OPERATING Ot 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 2015 CLAUS SANDERSON DIRECTOR OPERATING Ot 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 11/23/2015 CLAUS SANDERSON DIRECTOR OPERATING Ot 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 11/30/2015 CLAUS SANDERSON DIRECTOR OPERATING Ot 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 12/06/2015 CLAUS SANDERSON DIRECTOR OPERATING Ot 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 10/18/2016 CLAUS SANDERSON [facility] Ot D05.10 INTRADUCTAL CARCINOMA IN SITU OF UNSPECI 10/21/2016 Ot 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 10/21/2016 Ot 252.1 HYPOPARATHYROIDISM 10/21/2016 Ot 401.9 HYPERTENSION NOS 10/21/2016 Ot 610.4 MAMMARY DUCT ECTASIA 10/21/2016 Ot 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 10/21/2016 Ot 272.0 PURE HYPERCHOLESTEROLEM 10/21/2016 Ot 343.9 CEREBRAL PALSY NOS 10/21/2016 Ot 401.9 HYPERTENSION NOS 10/21/2016 Ot 530.81 ESOPHAGEAL REFLUX 10/21/2016 Ot V16.3 FAMILY HX- BREAST MALIG 10/21/2016 Ot V58.66 LONG-TERM ( CURRENT) USE OF ASPIRIN 10/21/2016 Ot V58.69 OTH MED,LT, CURRENT USE 10/21/2016 Ot 174.9 MALIGN NEOPL BREAST NOS 10/21/2016 Ot V72.63 PRE- PROCEDURAL LABORATORY EXAMINATION 10/21/2016 Ot V74.8 SCREEN- BACTERIAL DIS NEC 10/21/2016 Ot 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 10/21/2016 Ot 343.9 CEREBRAL PALSY NOS 10/21/2016 Ot V45.71 ACQUIRED ABSENCE OF BREAST AND NIPPLE 10/21/2016 Ot V58.69 OTH MED,LT, CURRENT USE 10/21/2016 Ot 793.81 MAMMOGRAPHIC MICROCLACIFICATION 10/21/2016 Ot V15.89 HX-HEALTH HAZARDS NEC 10/21/2016 Ot V76.11 SCRN MAMMO- HIGH RISK PT, MALIGNANT NEOPL 10/21/2016 Ot 343.9 CEREBRAL PALSY NOS 10/21/2016 Ot 790.6 ABN BLOOD CHEMISTRY NEC 10/21/2016 Ot V10.3 HX OF BREAST MALIGNANCY 10/21/2016 Ot V45.71 ACQUIRED ABSENCE OF BREAST AND NIPPLE 10/21/2016 Ot V58.69 OTH MED,LT, CURRENT USE 10/21/2016 Ot V67.09 SURGERY FOLLOW-UP, OTHER SURGERY 10/21/2016 Ot 174.9 MALIGN NEOPL BREAST NOS 10/21/2016 Ot 793.81 MAMMOGRAPHIC MICROCLACIFICATION 10/21/2016 Ot 250.00 DIAB ENZO WO COMPL, TYPE II OR UNSPEC TY 10/21/2016 Ot 343.9 CEREBRAL PALSY NOS 10/21/2016 Ot 790.6 ABN BLOOD CHEMISTRY NEC 10/21/2016 Ot V10.3 HX OF BREAST MALIGNANCY 10/21/2016 Ot V45.71 ACQUIRED ABSENCE OF BREAST AND NIPPLE 10/21/2016 Ot V58.69 OTH MED,LT, CURRENT USE 10/21/2016 Ot V67.09 SURGERY FOLLOW-UP, OTHER SURGERY 10/21/2016 Ot 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 10/21/2016 Ot 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 10/21/2016 SANDERSONCLAUS De La Rosa S DIRECTOR OPERATING Ot 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 10/21/2016 SANDERSONCLAUS De La Rosa S DIRECTOR OPERATING Ot 793.89 OTH (ABN) FINDINGS ON RADIOLOGICAL EXAMI 10/21/2016 LEONIDAS MYRICK Anurag Ot 250.00 DIAB ENZO WO COMPL, TYPE II OR UNSPEC TY 10/21/2016 LEONIDAS MYRICK N Ot 343.9 CEREBRAL PALSY NOS 10/21/2016 LEONIDAS MYRICK N Ot V10.3 HX OF BREAST MALIGNANCY 10/21/2016 RAMEZLEONIDAS PETERSON N Ot V45.71 ACQUIRED ABSENCE OF BREAST AND NIPPLE 10/21/2016 LEONIDAS MYRICK Anurag Ot V58.69 OTH MED,LT,CURRENT USE 10/21/2016 LEONIDAS MYRICK N Ot V67.09 SURGERY FOLLOW-UP, OTHER SURGERY 10/21/2016 CLAUS SANDERSON S DIRECTOR OPERATING Ot 250.00 DIAB ENZO WO COMPL, TYPE II OR UNSPEC TY 10/21/2016 SANDERSONCLAUS De La Rosa S DIRECTOR OPERATING Ot 343.9 CEREBRAL PALSY NOS 10/21/2016 CLAUS SANDERSON DIRECTOR OPERATING Ot 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 10/21/2016 CLAUS SANDERSON DIRECTOR OPERATING Ot V13.89 PERSONAL HISTORY OF OTHER SPECIFIED DISE 10/21/2016 CLAUS SANDEROSN DIRECTOR OPERATING Ot V45.71 ACQUIRED ABSENCE OF BREAST AND NIPPLE 10/21/2016 CLAUS SANDERSON DIRECTOR OPERATING Ot V58.69 OTH MED,LT,CURRENT USE 10/21/2016 SANDERSONCLAUS De La Rosa S DIRECTOR OPERATING Ot V67.09 SURGERY FOLLOW-UP, OTHER SURGERY 10/21/2016 CLAUS SANDERSON S DIRECTOR OPERATING Ot 793.89 OTH (ABN) FINDINGS ON RADIOLOGICAL EXAMI 10/21/2016 LEONIDAS MYRICK Ot 343.9 CEREBRAL PALSY NOS 10/21/2016 LEONIDAS MYRICK Ot V13.89 PERSONAL HISTORY OF OTHER SPECIFIED DISE 10/21/2016 LEONIDAS MYRICK Ot V45.71 ACQUIRED ABSENCE OF BREAST AND NIPPLE 10/21/2016 LEONIDAS MYRICK Ot V58.69 OTH MED,LT,CURRENT USE 10/21/2016 LEONIDAS MYRICK Ot V67.09 SURGERY FOLLOW-UP, OTHER SURGERY 10/21/2016 LEONIDAS MYRICK Ot 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 10/21/2016 LEONIDAS MYRICK Ot 793.89 OTH (ABN) FINDINGS ON RADIOLOGICAL EXAMI 10/21/2016 CLAUS SANDERSON DIRECTOR OPERATING Ot 250.00 DIAB ENZO WO COMPL, TYPE II OR UNSPEC TY 10/21/2016 CLAUS SANDERSON DIRECTOR OPERATING Ot 343.9 CEREBRAL PALSY NOS 10/21/2016 CLAUS SANDERSON DIRECTOR OPERATING Ot V13.89 PERSONAL HISTORY OF OTHER SPECIFIED DISE 10/21/2016 CLAUS SANDERSON DIRECTOR OPERATING Ot V45.71 ACQUIRED ABSENCE OF BREAST AND NIPPLE 10/21/2016 CLAUS SANDERSON DIRECTOR OPERATING Ot V58.69 OTH MED,LT,CURRENT USE 10/21/2016 CLAUS SANDERSON DIRECTOR OPERATING Ot V67.09 SURGERY FOLLOW-UP, OTHER SURGERY 10/21/2016 CLAUS SANDERSON DIRECTOR OPERATING Ot 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 10/21/2016 CLAUS SANDERSON DIRECTOR OPERATING Ot 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 10/21/2016 CLAUS SANDERSON DIRECTOR OPERATING Ot Z85.3 PERSONAL HISTORY OF MALIGNANT NEOPLASM O 10/21/2016 CLAUS SANDERSON DIRECTOR OPERATING Ot Z85.3 PERSONAL HISTORY OF MALIGNANT NEOPLASM O 10/21/2016 CLAUS SANDERSON DIRECTOR OPERATING Ot Z85.3 PERSONAL HISTORY OF MALIGNANT NEOPLASM O 10/21/2016 CLAUS SANDERSON DIRECTOR OPERATING Ot Z85.3 PERSONAL HISTORY OF MALIGNANT NEOPLASM O 10/21/2016 CLAUS SANDERSON DIRECTOR OPERATING Ot Z85.3 PERSONAL HISTORY OF MALIGNANT NEOPLASM O 10/21/2016 CLAUS SANDERSON DIRECTOR OPERATING Ot Z85.3 PERSONAL HISTORY OF MALIGNANT NEOPLASM O 10/27/2016 CLAUS SANDERSON DIRECTOR OPERATING Ot 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 11/03/2016 LEONIDAS MYRICK N Ot 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 11/03/2016 LEONIDAS MYRICK N Ot 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 11/03/2016 LEONIDAS MYRICK N Ot 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 11/03/2016 LEONIDAS MYRICK N Ot 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 11/03/2016 LEONIDAS MYRICK N Ot 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 11/03/2016 LEONIDAS MYRICK N Ot 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 11/03/2016 LEONIDAS MYRICK N Ot 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 11/03/2016 LEONIDAS MYRICK N Ot 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 11/03/2016 LEONIDAS MYRICK N Ot 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 11/21/2016 CLAUS SANDERSON DIRECTOR OPERATING Ot 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 11/25/2016 CLAUS SADNERSON DIRECTOR OPERATING Ot 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 11/25/2016 LEONIDAS MYRICK N Ot 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 11/25/2016 CLAUS SANDERSON DIRECTOR OPERATING Ot 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 11/27/2016 LEONIDAS MYRICK N Ot 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 11/27/2016 LEONIDAS MYRICK N Ot 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 12/13/2016 CAMILO MONTANO MD Ot E11.622 TYPE 2 DIABETES MELLITUS WITH OTHER SKIN 12/13/2016 CAMILO MONTANO MD Ot L97.222 NON-PRESSURE CHRONIC ULCER OF LEFT CALF 01/10/2017 CAMILO MONTANO MD Ot E11.622 TYPE 2 DIABETES MELLITUS WITH OTHER SKIN 01/10/2017 CAMILO MONTANO MD Ot L97.222 NON-PRESSURE CHRONIC ULCER OF LEFT CALF 01/13/2017 CAMILO MONTANO MD Ot E11.622 TYPE 2 DIABETES MELLITUS WITH OTHER SKIN 01/13/2017 CAMILO MONTANO MD Ot L97.222 NON-PRESSURE CHRONIC ULCER OF LEFT CALF 01/26/2017 CAMILO MONTANO MD Ot E11.622 TYPE 2 DIABETES MELLITUS WITH OTHER SKIN 01/26/2017 CAMILO MONTANO MD Ot L97.222 NON-PRESSURE CHRONIC ULCER OF LEFT CALF 02/12/2017 CAMILO MONTANO MD, Ot E11.622 TYPE 2 DIABETES MELLITUS WITH OTHER SKIN 02/12/2017 CAMILO MONTANO MD Ot L97.222 NON-PRESSURE CHRONIC ULCER OF LEFT CALF 02/19/2017 CAMILO MONTANO MD, Ot E11.622 TYPE 2 DIABETES MELLITUS WITH OTHER SKIN 02/19/2017 CAMILO MONTANO MD Ot L97.222 NON-PRESSURE CHRONIC ULCER OF LEFT CALF 02/26/2017 CAMILO MONTANO MD, Ot E11.622 TYPE 2 DIABETES MELLITUS WITH OTHER SKIN 02/26/2017 CAMILO MONTANO MD Ot L97.222 NON-PRESSURE CHRONIC ULCER OF LEFT CALF 02/26/2017 CAMILO MONTANO MD, Ot E11.622 TYPE 2 DIABETES MELLITUS WITH OTHER SKIN 02/26/2017 CAMILO MONTANO MD Ot L97.222 NON-PRESSURE CHRONIC ULCER OF LEFT CALF 02/28/2017 CAMILO MONTANO MD Ot E11.622 TYPE 2 DIABETES MELLITUS WITH OTHER SKIN 02/28/2017 CAMILO MONTANO MD Ot L97.222 NON-PRESSURE CHRONIC ULCER OF LEFT CALF 03/04/2017 CAMILO MONTANO MD, Ot E11.622 TYPE 2 DIABETES MELLITUS WITH OTHER SKIN 03/04/2017 CAMILO MONTANO MD Ot L97.222 NON-PRESSURE CHRONIC ULCER OF LEFT CALF 03/05/2017 CAMILO MONTANO MD Ot E11.622 TYPE 2 DIABETES MELLITUS WITH OTHER SKIN 03/05/2017 CAMILO MONTANO MD Ot L97.222 NON-PRESSURE CHRONIC ULCER OF LEFT CALF 03/06/2017 CAMILO MONTANO MD Ot E11.622 TYPE 2 DIABETES MELLITUS WITH OTHER SKIN 03/06/2017 CAMILO MONTANO MD Ot L97.222 NON-PRESSURE CHRONIC ULCER OF LEFT CALF 03/07/2017 CAMILO MONTANO MD, Ot E11.622 TYPE 2 DIABETES MELLITUS WITH OTHER SKIN 03/07/2017 CAMILO MONTANO MD Ot L97.222 NON-PRESSURE CHRONIC ULCER OF LEFT CALF 03/12/2017 CAMILO MONTANO MD Ot E11.622 TYPE 2 DIABETES MELLITUS WITH OTHER SKIN 03/12/2017 CAMILO MONTANO MD Ot L97.222 NON-PRESSURE CHRONIC ULCER OF LEFT CALF 03/12/2017 CAMILO MONTANO MD, Ot E11.622 TYPE 2 DIABETES MELLITUS WITH OTHER SKIN 03/12/2017 CAMILO MONTANO MD, Ot L97.222 NON-PRESSURE CHRONIC ULCER OF LEFT CALF 03/12/2017 CAMILO MONTANO MD, Ot E11.622 TYPE 2 DIABETES MELLITUS WITH OTHER SKIN 03/12/2017 CAMILO MONTANO MD Ot L97.222 NON-PRESSURE CHRONIC ULCER OF LEFT CALF 03/18/2017 CAMILO MNOTANO MD, Ot E11.622 TYPE 2 DIABETES MELLITUS WITH OTHER SKIN 03/18/2017 CAMILO MONTANO MD Ot L97.222 NON-PRESSURE CHRONIC ULCER OF LEFT CALF 03/19/2017 CAMILO MONTANO MD, Ot E11.622 TYPE 2 DIABETES MELLITUS WITH OTHER SKIN 03/19/2017 CAMLIO MONTANO MD, Ot L97.222 NON-PRESSURE CHRONIC ULCER OF LEFT CALF 03/19/2017 CAMILO MONTANO MD, Ot E11.622 TYPE 2 DIABETES MELLITUS WITH OTHER SKIN 03/19/2017 CAMILO MONTANO MD Ot L97.222 NON-PRESSURE CHRONIC ULCER OF LEFT CALF 03/20/2017 CAMILO MONTANO MD, Ot E11.622 TYPE 2 DIABETES MELLITUS WITH OTHER SKIN 03/20/2017 CAMILO MONTANO MD Ot L97.222 NON-PRESSURE CHRONIC ULCER OF LEFT CALF 03/25/2017 CAMILO MONTANO MD, Ot E11.622 TYPE 2 DIABETES MELLITUS WITH OTHER SKIN 03/25/2017 CAMILO MONTANO MD Ot L97.222 NON-PRESSURE CHRONIC ULCER OF LEFT CALF 03/27/2017 CAMILO MONTANO MD, Ot E11.622 TYPE 2 DIABETES MELLITUS WITH OTHER SKIN 03/27/2017 CAMILO MONTANO MD Ot L97.222 NON-PRESSURE CHRONIC ULCER OF LEFT CALF 03/28/2017 CAMILO MONTANO MD Ot E11.622 TYPE 2 DIABETES MELLITUS WITH OTHER SKIN 03/28/2017 CAMILO MONTANO MD Ot L97.222 NON-PRESSURE CHRONIC ULCER OF LEFT CALF 03/28/2017 CAMILO MONTANO MD, Ot E11.622 TYPE 2 DIABETES MELLITUS WITH OTHER SKIN 03/28/2017 CAMILO MONTANO MD Ot L97.222 NON-PRESSURE CHRONIC ULCER OF LEFT CALF 04/02/2017 CAMILO MONTANO MD Ot E11.622 TYPE 2 DIABETES MELLITUS WITH OTHER SKIN 04/02/2017 CAMILO MONTANO MD, Ot L97.222 NON-PRESSURE CHRONIC ULCER OF LEFT CALF 04/02/2017 CAMILO MONTANO MD, Ot E11.622 TYPE 2 DIABETES MELLITUS WITH OTHER SKIN 04/02/2017 CAMILO MONTANO MD, Ot L97.222 NON-PRESSURE CHRONIC ULCER OF LEFT CALF 04/04/2017 CAMILO MONTANO MD, Ot E11.622 TYPE 2 DIABETES MELLITUS WITH OTHER SKIN 04/04/2017 CAMILO MONTANO MD, Ot L97.222 NON-PRESSURE CHRONIC ULCER OF LEFT CALF 04/09/2017 CAMILO MONTANO MD, Ot E11.622 TYPE 2 DIABETES MELLITUS WITH OTHER SKIN 04/09/2017 CAMILO MONTANO MD, Ot L97.222 NON-PRESSURE CHRONIC ULCER OF LEFT CALF 04/09/2017 CAMILO MONTANO MD, Ot E11.622 TYPE 2 DIABETES MELLITUS WITH OTHER SKIN 04/09/2017 CAMILO MONTANO MD, Ot L97.222 NON-PRESSURE CHRONIC ULCER OF LEFT CALF 04/10/2017 CAMILO MONTANO MD, Ot E11.622 TYPE 2 DIABETES MELLITUS WITH OTHER SKIN 04/10/2017 CAMILO MONTANO MD, Ot L97.222 NON-PRESSURE CHRONIC ULCER OF LEFT CALF 04/10/2017 CAMILO MONTANO MD, Ot E11.622 TYPE 2 DIABETES MELLITUS WITH OTHER SKIN 04/10/2017 CAMILO MONTANO MD Ot L97.222 NON-PRESSURE CHRONIC ULCER OF LEFT CALF 04/11/2017 CAMILO MONTANO MD, Ot E11.622 TYPE 2 DIABETES MELLITUS WITH OTHER SKIN 04/11/2017 CAMILO MONTANO MD, Ot L97.222 NON-PRESSURE CHRONIC ULCER OF LEFT CALF 04/15/2017 CAMILO MONTANO MD, Ot E11.622 TYPE 2 DIABETES MELLITUS WITH OTHER SKIN 04/15/2017 CAMILO MONTANO MD, Ot L97.222 NON-PRESSURE CHRONIC ULCER OF LEFT CALF 04/16/2017 CAMILO MONTANO MD, Ot E11.622 TYPE 2 DIABETES MELLITUS WITH OTHER SKIN 04/16/2017 CAMILO MONTANO MD Ot L97.222 NON-PRESSURE CHRONIC ULCER OF LEFT CALF 04/17/2017 CAMILO MONTANO MD, Ot E11.622 TYPE 2 DIABETES MELLITUS WITH OTHER SKIN 04/17/2017 CAMILO MONTANO MD Ot L97.222 NON-PRESSURE CHRONIC ULCER OF LEFT CALF 04/18/2017 STEFFANIE MORROW APRN Ot Z45.2 ENCOUNTER FOR ADJUSTMENT AND MANAGEMENT 04/18/2017 STEFFANIE MORROW APRN Ot Z45.2 ENCOUNTER FOR ADJUSTMENT AND MANAGEMENT 04/22/2017 STEFFANIE 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 Z45.2 ENCOUNTER FOR ADJUSTMENT AND MANAGEMENT 04/25/2017 CAMILO MONTANO MD, Ot E11.622 TYPE 2 DIABETES MELLITUS WITH OTHER SKIN 04/25/2017 CAMILO MONTANO MD, Ot L97.222 NON-PRESSURE CHRONIC ULCER OF LEFT CALF 04/28/2017 CAMILO MONTANO MD, Ot E11.622 TYPE 2 DIABETES MELLITUS WITH OTHER SKIN 04/28/2017 CAMILO MONTANO MD Ot L97.222 NON-PRESSURE CHRONIC ULCER OF LEFT CALF 04/30/2017 CAMILO MONTANO MD, Ot E11.622 TYPE 2 DIABETES MELLITUS WITH OTHER SKIN 04/30/2017 CAMILO MONTANO MD Ot L97.222 NON-PRESSURE CHRONIC ULCER OF LEFT CALF 05/05/2017 CAMILO MONTANO MD, Ot E11.622 TYPE 2 DIABETES MELLITUS WITH OTHER SKIN 05/05/2017 CAMILO MONTANO MD, Ot L97.222 NON-PRESSURE CHRONIC ULCER OF LEFT CALF 05/07/2017 CAMILO MONTANO MD, Ot E11.622 TYPE 2 DIABETES MELLITUS WITH OTHER SKIN 05/07/2017 CAMILO MONTANO MD Ot L97.222 NON-PRESSURE CHRONIC ULCER OF LEFT CALF 05/12/2017 CAMILO MONTANO MD, Ot E11.622 TYPE 2 DIABETES MELLITUS WITH OTHER SKIN 05/12/2017 CAMILO MONTANO MD Ot L97.222 NON-PRESSURE CHRONIC ULCER OF LEFT CALF 05/12/2017 STEFFANIE 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 Z45.2 ENCOUNTER FOR ADJUSTMENT AND MANAGEMENT 05/13/2017 CAMILO MONTANO MD, Ot E11.622 TYPE 2 DIABETES MELLITUS WITH OTHER SKIN 05/13/2017 CAMILO MONTANO MD, Ot L97.222 NON-PRESSURE CHRONIC ULCER OF LEFT CALF 05/13/2017 CAMILO MONTANO MD Ot Z79.2 MANAGER MEDICAID (CURRENT) USE OF ANTIBIOTICS 05/13/2017 CAMILO MONTANO MD, Ot E11.622 TYPE 2 DIABETES MELLITUS WITH OTHER SKIN 05/13/2017 CAMILO MONTANO MD, Ot L97.222 NON-PRESSURE CHRONIC ULCER OF LEFT CALF 05/16/2017 CAMILO MONTANO MD, Ot E11.622 TYPE 2 DIABETES MELLITUS WITH OTHER SKIN 05/16/2017 CAMILO MONTANO MD Ot L97.222 NON-PRESSURE CHRONIC ULCER OF LEFT CALF 05/19/2017 CAMILO MONTANO MD Ot E11.622 TYPE 2 DIABETES MELLITUS WITH OTHER SKIN 05/19/2017 CAMILO MONTANO MD Ot L97.222 NON-PRESSURE CHRONIC ULCER OF LEFT CALF 05/19/2017 STEFFANIE MORROW APRN Ot Z45.2 ENCOUNTER FOR ADJUSTMENT AND MANAGEMENT 05/21/2017 CAMILO MONTANO MD, Ot E11.622 TYPE 2 DIABETES MELLITUS WITH OTHER SKIN 05/21/2017 CAMILO MONTANO MD Ot L97.222 NON-PRESSURE CHRONIC ULCER OF LEFT CALF 05/22/2017 STEFFANIE MORROW APRN Ot Z45.2 ENCOUNTER FOR ADJUSTMENT AND MANAGEMENT 05/22/2017 STEFFANIE MORROW APRN Ot Z79.2 MANAGER MEDICAID (CURRENT) USE OF ANTIBIOTICS 05/26/2017 CAMILO MONTANO MD, Ot E11.622 TYPE 2 DIABETES MELLITUS WITH OTHER SKIN 05/26/2017 CAMILO MONTANO MD, Ot L97.222 NON-PRESSURE CHRONIC ULCER OF LEFT CALF 05/29/2017 CAMILO MONTANO MD, Ot E11.622 TYPE 2 DIABETES MELLITUS WITH OTHER SKIN 05/29/2017 CAMILO MONTANO MD, Ot L97.222 NON-PRESSURE CHRONIC ULCER OF LEFT CALF 06/04/2017 STEFFANIE MORROW APRN Ot E11.622 TYPE 2 DIABETES MELLITUS WITH OTHER SKIN 06/04/2017 STEFFANIE MORROW APRN Ot L97.222 NON-PRESSURE CHRONIC ULCER OF LEFT CALF 06/04/2017 CAMILO MONTANO MD, Ot E11.622 TYPE 2 DIABETES MELLITUS WITH OTHER SKIN 06/04/2017 CAMILO MONTANO MD, Ot L97.222 NON-PRESSURE CHRONIC ULCER OF LEFT CALF 06/06/2017 CAMILO MONTANO MD, Ot E11.622 TYPE 2 DIABETES MELLITUS WITH OTHER SKIN 06/06/2017 CAMILO MONTANO MD Ot L97.222 NON-PRESSURE CHRONIC ULCER OF LEFT CALF 06/06/2017 CAMILO MONTANO MD, Ot E11.622 TYPE 2 DIABETES MELLITUS WITH OTHER SKIN 06/06/2017 CAMILO MONTANO MD Ot L97.222 NON-PRESSURE CHRONIC ULCER OF LEFT CALF 06/06/2017 CAMILO MONTANO MD, Ot E11.622 TYPE 2 DIABETES MELLITUS WITH OTHER SKIN 06/06/2017 CAMILO MONTANO MD Ot L97.222 NON-PRESSURE CHRONIC ULCER OF LEFT CALF 06/06/2017 CAMILO MONTANO MD, Ot E11.622 TYPE 2 DIABETES MELLITUS WITH OTHER SKIN 06/06/2017 CAMIOL MONTANO MD Ot L97.222 NON-PRESSURE CHRONIC ULCER OF LEFT CALF 06/06/2017 CAMILO MONTANO MD, Ot Z79.2 MANAGER MEDICAID (CURRENT) USE OF ANTIBIOTICS 06/06/2017 STEFFANIE MORROW APRN Ot Z45.2 ENCOUNTER FOR ADJUSTMENT AND MANAGEMENT 06/11/2017 CAMILO MONTANO MD, Ot E11.622 TYPE 2 DIABETES MELLITUS WITH OTHER SKIN 06/11/2017 CAMILO MONTANO MD, Ot L97.222 NON-PRESSURE CHRONIC ULCER OF LEFT CALF 06/12/2017 CAMILO MONTANO MD, Ot E11.622 TYPE 2 DIABETES MELLITUS WITH OTHER SKIN 06/12/2017 CAMILO MONTANO MD, Ot L97.222 NON-PRESSURE CHRONIC ULCER OF LEFT CALF 06/18/2017 STEFFANIE MORROW APRN Ot E11.622 TYPE 2 DIABETES MELLITUS WITH OTHER SKIN 06/18/2017 STEFFANIE MORROW APRN Ot L97.222 NON-PRESSURE CHRONIC ULCER OF LEFT CALF 06/20/2017 CAMILO MONTANO MD, Ot E11.622 TYPE 2 DIABETES MELLITUS WITH OTHER SKIN 06/20/2017 CAMILO MONTANO MD, Ot L97.222 NON-PRESSURE CHRONIC ULCER OF LEFT CALF 06/23/2017 STEFFANIE MORROW APRN Ot E11.622 TYPE 2 DIABETES MELLITUS WITH OTHER SKIN 06/23/2017 STEFFANIE MORROW APRN Ot L97.222 NON-PRESSURE CHRONIC ULCER OF LEFT CALF 06/24/2017 CAMILO MONTANO MD, Ot E11.622 TYPE 2 DIABETES MELLITUS WITH OTHER SKIN 06/24/2017 CAMILO MONTANO MD, Ot L97.222 NON-PRESSURE CHRONIC ULCER OF LEFT CALF 06/26/2017 CAMILO MONTANO MD, Ot E11.622 TYPE 2 DIABETES MELLITUS WITH OTHER SKIN 06/26/2017 CAMILO MONTANO MD Ot L97.222 NON-PRESSURE CHRONIC ULCER OF LEFT CALF 06/27/2017 STEFFANIE MORROW APRN Ot E11.622 TYPE 2 DIABETES MELLITUS WITH OTHER SKIN 06/27/2017 STEFFANIE MORROW APRN Ot L97.222 NON-PRESSURE CHRONIC ULCER OF LEFT CALF 06/27/2017 CAMILO MONTANO MD, Ot E11.622 TYPE 2 DIABETES MELLITUS WITH OTHER SKIN 06/27/2017 CAMILO MONTANO MD Ot L97.222 NON-PRESSURE CHRONIC ULCER OF LEFT CALF 07/01/2017 CAMILO MONTANO MD, Ot E11.622 TYPE 2 DIABETES MELLITUS WITH OTHER SKIN 07/01/2017 CAMILO MONTANO MD, Ot L97.222 NON-PRESSURE CHRONIC ULCER OF LEFT CALF 07/01/2017 CAMILO MONTANO MD, Ot E11.622 TYPE 2 DIABETES MELLITUS WITH OTHER SKIN 07/01/2017 CAMILO MONTANO MD, Ot L97.222 NON-PRESSURE CHRONIC ULCER OF LEFT CALF 07/04/2017 CAMILO MONTANO MD, Ot E11.622 TYPE 2 DIABETES MELLITUS WITH OTHER SKIN 07/04/2017 CAMILO MONTANO MD, Ot L97.222 NON-PRESSURE CHRONIC ULCER OF LEFT CALF 07/04/2017 CAMILO MONTANO MD, Ot E11.622 TYPE 2 DIABETES MELLITUS WITH OTHER SKIN 07/04/2017 CAMILO MONTANO MD, Ot L97.222 NON-PRESSURE CHRONIC ULCER OF LEFT CALF 07/07/2017 CAMILO MONTANO MD, Ot L97.222 NON-PRESSURE CHRONIC ULCER OF LEFT CALF 07/09/2017 STEFFANIE MORROW APRN Ot E11.622 TYPE 2 DIABETES MELLITUS WITH OTHER SKIN 07/09/2017 STEFFANIE 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 L97.222 NON-PRESSURE CHRONIC ULCER OF LEFT CALF 07/09/2017 STEFFANIE MORROW APRN Ot E11.622 TYPE 2 DIABETES MELLITUS WITH OTHER SKIN 07/09/2017 STEFFANIE 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 L97.222 NON-PRESSURE CHRONIC ULCER OF LEFT CALF 07/09/2017 CAMILO MONTANO MD, Ot E11.622 TYPE 2 DIABETES MELLITUS WITH OTHER SKIN 07/09/2017 CAMILO MONTANO MD, Ot L97.222 NON-PRESSURE CHRONIC ULCER OF LEFT CALF 07/10/2017 CAMILO MONTANO MD, Ot E11.622 TYPE 2 DIABETES MELLITUS WITH OTHER SKIN 07/10/2017 CAMILO MONTANO MD Ot L97.222 NON-PRESSURE CHRONIC ULCER OF LEFT CALF 07/13/2017 STEFFANIE 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 Z45.2 ENCOUNTER FOR ADJUSTMENT AND MANAGEMENT 07/14/2017 CAMILO MONTANO MD, Ot E11.622 TYPE 2 DIABETES MELLITUS WITH OTHER SKIN 07/14/2017 CAMILO MONTANO MD Ot L97.222 NON-PRESSURE CHRONIC ULCER OF LEFT CALF 07/14/2017 STEFFANIE MORROW APRN Ot Z45.2 ENCOUNTER FOR ADJUSTMENT AND MANAGEMENT 07/17/2017 CAMILO MONTANO MD Ot L97.222 NON-PRESSURE CHRONIC ULCER OF LEFT CALF 07/18/2017 CAMILO MONTANO MD, Ot E11.622 TYPE 2 DIABETES MELLITUS WITH OTHER SKIN 07/18/2017 CHARMAINE MD, CAMILO D Ot L97.222 NON-PRESSURE CHRONIC ULCER OF LEFT CALF 07/23/2017 CAMILO MONTANO MD Ot L97.222 NON-PRESSURE CHRONIC ULCER OF LEFT CALF 07/25/2017 CAMILO MONTANO MD, Ot E11.622 TYPE 2 DIABETES MELLITUS WITH OTHER SKIN 07/25/2017 CAMILO MONTANO MD Ot L97.222 NON-PRESSURE CHRONIC ULCER OF LEFT CALF 07/31/2017 CAMILO MONTANO MD Ot E11.622 TYPE 2 DIABETES MELLITUS WITH OTHER SKIN 07/31/2017 CAMILO MONTANO MD Ot L97.222 NON-PRESSURE CHRONIC ULCER OF LEFT CALF 07/31/2017 CAMILO MONTANO MD, Ot E11.622 TYPE 2 DIABETES MELLITUS WITH OTHER SKIN 07/31/2017 CAMILO MONTANO MD Ot L97.222 NON-PRESSURE CHRONIC ULCER OF LEFT CALF 08/01/2017 STEFFANIE MORROW APRN Ot E11.622 TYPE 2 DIABETES MELLITUS WITH OTHER SKIN 08/01/2017 STEFFANIE 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 L97.222 NON-PRESSURE CHRONIC ULCER OF LEFT CALF 08/01/2017 CAMILO MONTANO MD Ot E11.622 TYPE 2 DIABETES MELLITUS WITH OTHER SKIN 08/01/2017 CAMILO MONTANO MD Ot L97.222 NON-PRESSURE CHRONIC ULCER OF LEFT CALF 08/01/2017 CAMILO MONTANO MD, Ot E11.622 TYPE 2 DIABETES MELLITUS WITH OTHER SKIN 08/01/2017 CAMILO MONTANO MD Ot L97.222 NON-PRESSURE CHRONIC ULCER OF LEFT CALF 08/08/2017 CAMILO MONTANO MD Ot E11.622 TYPE 2 DIABETES MELLITUS WITH OTHER SKIN 08/08/2017 CAMILO MONTANO MD Ot L97.222 NON-PRESSURE CHRONIC ULCER OF LEFT CALF 08/08/2017 CAMILO MONTANO MD Ot E11.622 TYPE 2 DIABETES MELLITUS WITH OTHER SKIN 08/08/2017 CAMILO MONTANO MD Ot L97.222 NON-PRESSURE CHRONIC ULCER OF LEFT CALF 08/18/2017 CAMILO MONTANO MD Ot E11.622 TYPE 2 DIABETES MELLITUS WITH OTHER SKIN 08/18/2017 CAMILO MONTANO MD Ot L97.222 NON-PRESSURE CHRONIC ULCER OF LEFT CALF 08/19/2017 CAMILO MONTANO MD Ot E11.622 TYPE 2 DIABETES MELLITUS WITH OTHER SKIN 08/19/2017 CAMILO MONTANO MD Ot L97.222 NON-PRESSURE CHRONIC ULCER OF LEFT CALF 08/20/2017 CAMILO MONTANO MD, Ot E11.622 TYPE 2 DIABETES MELLITUS WITH OTHER SKIN 08/20/2017 CAMILO MONTANO MD Ot L97.222 NON-PRESSURE CHRONIC ULCER OF LEFT CALF 08/25/2017 CAMILO MONTANO MD, Ot E11.622 TYPE 2 DIABETES MELLITUS WITH OTHER SKIN 08/25/2017 CAMILO MONTANO MD Ot L97.222 NON-PRESSURE CHRONIC ULCER OF LEFT CALF 08/28/2017 STEFFANIE 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 E11.622 TYPE 2 DIABETES MELLITUS WITH OTHER SKIN 08/28/2017 STEFFANIE 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 L97.222 NON-PRESSURE CHRONIC ULCER OF LEFT CALF 08/28/2017 CAMILO MONTANO MD, Ot E11.622 TYPE 2 DIABETES MELLITUS WITH OTHER SKIN 08/28/2017 CAMILO MONTANO MD Ot L97.222 NON-PRESSURE CHRONIC ULCER OF LEFT CALF 08/29/2017 CAMILO MONTANO MD, Ot E11.622 TYPE 2 DIABETES MELLITUS WITH OTHER SKIN 08/29/2017 CAMILO MONTANO MD Ot L97.222 NON-PRESSURE CHRONIC ULCER OF LEFT CALF 08/29/2017 CAMILO MONTANO MD, Ot E11.622 TYPE 2 DIABETES MELLITUS WITH OTHER SKIN 08/29/2017 CAMILO MONTANO MD Ot L97.222 NON-PRESSURE CHRONIC ULCER OF LEFT CALF 08/29/2017 CAMILO MONTANO MD, Ot E11.622 TYPE 2 DIABETES MELLITUS WITH OTHER SKIN 08/29/2017 CAMILO MONTANO MD Ot L97.222 NON-PRESSURE CHRONIC ULCER OF LEFT CALF 09/02/2017 CAMILO MONTANO MD, Ot E11.622 TYPE 2 DIABETES MELLITUS WITH OTHER SKIN 09/02/2017 CAMILO MONTANO MD Ot L97.222 NON-PRESSURE CHRONIC ULCER OF LEFT CALF 09/03/2017 CAMILO MONTANO MD, Ot E11.622 TYPE 2 DIABETES MELLITUS WITH OTHER SKIN 09/03/2017 CAMILO MONTANO MD Ot L97.222 NON-PRESSURE CHRONIC ULCER OF LEFT CALF 09/03/2017 CAMILO MONTANO MD, Ot E11.622 TYPE 2 DIABETES MELLITUS WITH OTHER SKIN 09/03/2017 CAMILO MONTANO MD Ot L97.222 NON-PRESSURE CHRONIC ULCER OF LEFT CALF 09/05/2017 STEFFANIE 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 E11.622 TYPE 2 DIABETES MELLITUS WITH OTHER SKIN 09/05/2017 STEFFANIE 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 L97.222 NON-PRESSURE CHRONIC ULCER OF LEFT CALF 09/05/2017 CAMILO MONTANO MD, Ot E11.622 TYPE 2 DIABETES MELLITUS WITH OTHER SKIN 09/05/2017 CAMILO MONTANO MD Ot L97.222 NON-PRESSURE CHRONIC ULCER OF LEFT CALF 09/10/2017 CAMILO MONTANO MD, Ot E11.622 TYPE 2 DIABETES MELLITUS WITH OTHER SKIN 09/10/2017 ACMILO MONTANO MD Ot L97.222 NON-PRESSURE CHRONIC ULCER OF LEFT CALF 09/10/2017 CAMILO MONTANO MD, Ot E11.622 TYPE 2 DIABETES MELLITUS WITH OTHER SKIN 09/10/2017 CAMILO MONTANO MD, Ot L97.222 NON-PRESSURE CHRONIC ULCER OF LEFT CALF 09/12/2017 CAMILO MONTANO MD, Ot E11.622 TYPE 2 DIABETES MELLITUS WITH OTHER SKIN 09/12/2017 CAMILO MONTANO MD Ot L97.222 NON-PRESSURE CHRONIC ULCER OF LEFT CALF 09/16/2017 CAMILO MONTANO MD, Ot E11.622 TYPE 2 DIABETES MELLITUS WITH OTHER SKIN 09/16/2017 CAMILO MONTANO MD Ot L97.222 NON-PRESSURE CHRONIC ULCER OF LEFT CALF 09/17/2017 CAMILO MONTANO MD, Ot E11.622 TYPE 2 DIABETES MELLITUS WITH OTHER SKIN 09/17/2017 CAMILO MONTANO MD Ot L97.222 NON-PRESSURE CHRONIC ULCER OF LEFT CALF 09/22/2017 CAMILO MONTANO MD, Ot E11.622 TYPE 2 DIABETES MELLITUS WITH OTHER SKIN 09/22/2017 CAMILO MONTANO MD Ot L97.222 NON-PRESSURE CHRONIC ULCER OF LEFT CALF 09/22/2017 CAMILO MONTANO MD, Ot E11.622 TYPE 2 DIABETES MELLITUS WITH OTHER SKIN 09/22/2017 CAMILO MONTAON MD Ot L97.222 NON-PRESSURE CHRONIC ULCER OF LEFT CALF 09/24/2017 Ot 250.00 DIAB ENZO WO COMPL, TYPE II OR UNSPEC TY 09/24/2017 Ot 343.9 CEREBRAL PALSY NOS 09/24/2017 Ot 790.6 ABN BLOOD CHEMISTRY NEC 09/24/2017 Ot V10.3 HX OF BREAST MALIGNANCY 09/24/2017 Ot V45.71 ACQUIRED ABSENCE OF BREAST AND NIPPLE 09/24/2017 Ot V58.69 OTH MED,LT, CURRENT USE 09/24/2017 Ot V67.09 SURGERY FOLLOW-UP, OTHER SURGERY 09/24/2017 Ot 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 09/24/2017 Ot 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 09/24/2017 SANDERSON, HILAH S DIRECTOR OPERATING Ot 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 09/24/2017 CLAUS SANDERSON S DIRECTOR OPERATING Ot 793.89 OTH (ABN) FINDINGS ON RADIOLOGICAL EXAMI 09/24/2017 LEONIDAS MYRICK N Ot 250.00 DIAB ENZO WO COMPL, TYPE II OR UNSPEC TY 09/24/2017 LEONIDAS MYRICK N Ot 343.9 CEREBRAL PALSY NOS 09/24/2017 LEONIDAS MYRICK N Ot V10.3 HX OF BREAST MALIGNANCY 09/24/2017 LEONIDAS MYRICK N Ot V45.71 ACQUIRED ABSENCE OF BREAST AND NIPPLE 09/24/2017 LEONIDAS MYRICK N Ot V58.69 OTH MED,LT,CURRENT USE 09/24/2017 LEONIDAS MYRICK N Ot V67.09 SURGERY FOLLOW-UP, OTHER SURGERY 09/24/2017 CLAUS SANDERSON S DIRECTOR OPERATING Ot 250.00 DIAB ENZO WO COMPL, TYPE II OR UNSPEC TY 09/24/2017 SANDERSONCLAUS De La Rosa S DIRECTOR OPERATING Ot 343.9 CEREBRAL PALSY NOS 09/24/2017 SANDERSON CLAUS S DIRECTOR OPERATING Ot 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 09/24/2017 SANDERSONCLAUS De La Rosa S DIRECTOR OPERATING Ot V13.89 PERSONAL HISTORY OF OTHER SPECIFIED DISE 09/24/2017 SANDERSONCLAUS De La Rosa S DIRECTOR OPERATING Ot V45.71 ACQUIRED ABSENCE OF BREAST AND NIPPLE 09/24/2017 SANDERSONCLAUS De La Rosa DIRECTOR OPERATING Ot V58.69 OTH MED,LT,CURRENT USE 09/24/2017 SANDERSONCLAUS De La Rosa S DIRECTOR OPERATING Ot V67.09 SURGERY FOLLOW-UP, OTHER SURGERY 09/24/2017 SANDERSONCLAUS De La Rosa DIRECTOR OPERATING Ot 793.89 OTH (ABN) FINDINGS ON RADIOLOGICAL EXAMI 09/24/2017 LEONIDAS MYRICK N Ot 343.9 CEREBRAL PALSY NOS 09/24/2017 LEONIDAS MYRICK N Ot V13.89 PERSONAL HISTORY OF OTHER SPECIFIED DISE 09/24/2017 LEONIDAS MYRICK N Ot V45.71 ACQUIRED ABSENCE OF BREAST AND NIPPLE 09/24/2017 LEONIDAS MYRICK N Ot V58.69 OTH MED,LT,CURRENT USE 09/24/2017 LEONIDAS MYRICK N Ot V67.09 SURGERY FOLLOW-UP, OTHER SURGERY 09/24/2017 LEONIDAS MYRICK N Ot 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 09/24/2017 LEONIDAS MYRICK N Ot 793.89 OTH (ABN) FINDINGS ON RADIOLOGICAL EXAMI 09/24/2017 CLAUS SANDERSON DIRECTOR OPERATING Ot 250.00 DIAB ENZO WO COMPL, TYPE II OR UNSPEC TY 09/24/2017 CLAUS SANDERSON DIRECTOR OPERATING Ot 343.9 CEREBRAL PALSY NOS 09/24/2017 CLAUS SANDERSON DIRECTOR OPERATING Ot V13.89 PERSONAL HISTORY OF OTHER SPECIFIED DISE 09/24/2017 CLAUS SANDERSON DIRECTOR OPERATING Ot V45.71 ACQUIRED ABSENCE OF BREAST AND NIPPLE 09/24/2017 CLAUS SANDERSON DIRECTOR OPERATING Ot V58.69 OTH MED,LT,CURRENT USE 09/24/2017 CLAUS SANDERSON DIRECTOR OPERATING Ot V67.09 SURGERY FOLLOW-UP, OTHER SURGERY 09/24/2017 CLAUS SANDERSON DIRECTOR OPERATING Ot 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 09/24/2017 CLAUS SANDERSON DIRECTOR OPERATING Ot 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 09/24/2017 CLAUS SANDERSON DIRECTOR OPERATING Ot 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 09/24/2017 LEONIDAS MYRICK N Ot 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 09/24/2017 CAMILO MONTANO MD Ot E11.622 TYPE 2 DIABETES MELLITUS WITH OTHER SKIN 09/24/2017 CAMILO MONTANO MD Ot L97.222 NON-PRESSURE CHRONIC ULCER OF LEFT CALF 09/24/2017 CAMILO MONTANO MD, Ot E11.622 TYPE 2 DIABETES MELLITUS WITH OTHER SKIN 09/24/2017 CAMILO MONTANO MD Ot L97.222 NON-PRESSURE CHRONIC ULCER OF LEFT CALF 09/24/2017 CAMILO MONTANO MD, Ot E11.622 TYPE 2 DIABETES MELLITUS WITH OTHER SKIN 09/24/2017 CAMILO MONTANO MD Ot L97.222 NON-PRESSURE CHRONIC ULCER OF LEFT CALF 09/24/2017 CAMILO MONTANO MD, Ot E11.622 TYPE 2 DIABETES MELLITUS WITH OTHER SKIN 09/24/2017 CAMILO MONTANO MD Ot L97.222 NON-PRESSURE CHRONIC ULCER OF LEFT CALF 09/24/2017 CAMILO MONTANO MD, Ot E11.622 TYPE 2 DIABETES MELLITUS WITH OTHER SKIN 09/24/2017 CAMILO MONTANO MD Ot L97.222 NON-PRESSURE CHRONIC ULCER OF LEFT CALF 09/24/2017 CAMILO MONTANO MD, Ot E11.622 TYPE 2 DIABETES MELLITUS WITH OTHER SKIN 09/24/2017 CAMILO MONTANO MD, Ot L97.222 NON-PRESSURE CHRONIC ULCER OF LEFT CALF 09/24/2017 CAMILO MONTANO MD, Ot E11.622 TYPE 2 DIABETES MELLITUS WITH OTHER SKIN 09/24/2017 CAMILO MONTANO MD, Ot L97.222 NON-PRESSURE CHRONIC ULCER OF LEFT CALF 09/24/2017 CAMILO MONTANO MD, Ot E11.622 TYPE 2 DIABETES MELLITUS WITH OTHER SKIN 09/24/2017 CAMILO MONTANO MD, Ot L97.222 NON-PRESSURE CHRONIC ULCER OF LEFT CALF 09/24/2017 CAMILO MONTANO MD, Ot E11.622 TYPE 2 DIABETES MELLITUS WITH OTHER SKIN 09/24/2017 CAMILO MONTANO MD, Ot L97.222 NON-PRESSURE CHRONIC ULCER OF LEFT CALF 09/24/2017 CAMILO MONTANO MD, Ot E11.622 TYPE 2 DIABETES MELLITUS WITH OTHER SKIN 09/24/2017 CAMILO MONTANO MD, Ot L97.222 NON-PRESSURE CHRONIC ULCER OF LEFT CALF 09/24/2017 CAMILO MONTANO MD, Ot E11.622 TYPE 2 DIABETES MELLITUS WITH OTHER SKIN 09/24/2017 CAMILO MONTANO MD, Ot L97.222 NON-PRESSURE CHRONIC ULCER OF LEFT CALF 09/24/2017 CAMILO MONTANO MD, Ot E11.622 TYPE 2 DIABETES MELLITUS WITH OTHER SKIN 09/24/2017 CAMILO MONTANO MD, Ot L97.222 NON-PRESSURE CHRONIC ULCER OF LEFT CALF 09/24/2017 CAMILO MONTANO MD, Ot E11.622 TYPE 2 DIABETES MELLITUS WITH OTHER SKIN 09/24/2017 CAMILO MONTANO MD, Ot L97.222 NON-PRESSURE CHRONIC ULCER OF LEFT CALF 09/24/2017 CAMILO MONTANO MD Ot Z79.2 MANAGER MEDICAID (CURRENT) USE OF ANTIBIOTICS 09/24/2017 CAMILO MONTANO MD, Ot E11.622 TYPE 2 DIABETES MELLITUS WITH OTHER SKIN 09/24/2017 CAMILO MONTANO MD, Ot L97.222 NON-PRESSURE CHRONIC ULCER OF LEFT CALF 09/24/2017 CAMILO MONTANO MD, Ot E11.622 TYPE 2 DIABETES MELLITUS WITH OTHER SKIN 09/24/2017 CAMILO MONTANO MD, Ot L97.222 NON-PRESSURE CHRONIC ULCER OF LEFT CALF 09/24/2017 STEFFANIE MORROW APRN Ot Z45.2 ENCOUNTER FOR ADJUSTMENT AND MANAGEMENT 09/24/2017 STEFFANIE MORROW APRN Ot Z79.2 DETENTION (CURRENT) USE OF ANTIBIOTICS 09/24/2017 CAMILO MONTANO MD, Ot E11.622 TYPE 2 DIABETES MELLITUS WITH OTHER SKIN 09/24/2017 CAMILO MONTANO MD, Ot L97.222 NON-PRESSURE CHRONIC ULCER OF LEFT CALF 09/24/2017 CAMILO MONTANO MD, Ot E11.622 TYPE 2 DIABETES MELLITUS WITH OTHER SKIN 09/24/2017 CAMILO MONTANO MD, Ot L97.222 NON-PRESSURE CHRONIC ULCER OF LEFT CALF 09/24/2017 STEFFANIE MORROW APRN, Ot E11.622 TYPE 2 DIABETES MELLITUS WITH OTHER SKIN 09/24/2017 STEFFANIE MORROW APRN Ot L97.222 NON-PRESSURE CHRONIC ULCER OF LEFT CALF 09/24/2017 CAMILO MONTANO MD, Ot E11.622 TYPE 2 DIABETES MELLITUS WITH OTHER SKIN 09/24/2017 CAMILO MONTANO MD, Ot L97.222 NON-PRESSURE CHRONIC ULCER OF LEFT CALF 09/24/2017 CAMILO MONTANO MD, Ot L97.222 NON-PRESSURE CHRONIC ULCER OF LEFT CALF 09/24/2017 STEFFANIE MORROW APRN Ot E11.622 TYPE 2 DIABETES MELLITUS WITH OTHER SKIN 09/24/2017 STEFFANIE MORROW APRN Ot L97.222 NON-PRESSURE CHRONIC ULCER OF LEFT CALF 09/24/2017 CAMILO MONTANO MD, Ot E11.622 TYPE 2 DIABETES MELLITUS WITH OTHER SKIN 09/24/2017 CAMILO MONTANO MD, Ot L97.222 NON-PRESSURE CHRONIC ULCER OF LEFT CALF 09/24/2017 CAMILO MONTANO MD, Ot E11.622 TYPE 2 DIABETES MELLITUS WITH OTHER SKIN 09/24/2017 CAMILO MONTANO MD, Ot L97.222 NON-PRESSURE CHRONIC ULCER OF LEFT CALF 09/24/2017 CAMILO MONTANO MD, Ot E11.622 TYPE 2 DIABETES MELLITUS WITH OTHER SKIN 09/24/2017 CAMILO MONTANO MD Ot L97.222 NON-PRESSURE CHRONIC ULCER OF LEFT CALF 09/24/2017 STEFFANIE MORROW APRN Ot Z45.2 ENCOUNTER FOR ADJUSTMENT AND MANAGEMENT 09/24/2017 CAMILO MONTANO MD, Ot E11.622 TYPE 2 DIABETES MELLITUS WITH OTHER SKIN 09/24/2017 CAMILO MONTANO MD Ot L97.222 NON-PRESSURE CHRONIC ULCER OF LEFT CALF 09/24/2017 CAMILO MONTANO MD, Ot E11.622 TYPE 2 DIABETES MELLITUS WITH OTHER SKIN 09/24/2017 CAMILO MONTANO MD, Ot L97.222 NON-PRESSURE CHRONIC ULCER OF LEFT CALF 09/24/2017 CAMILO MONTANO MD, Ot E11.622 TYPE 2 DIABETES MELLITUS WITH OTHER SKIN 09/24/2017 CAMILO MONTANO MD, Ot L97.222 NON-PRESSURE CHRONIC ULCER OF LEFT CALF 09/24/2017 CAMILO MONTANO MD, Ot E11.622 TYPE 2 DIABETES MELLITUS WITH OTHER SKIN 09/24/2017 CAMILO MONTANO MD, Ot L97.222 NON-PRESSURE CHRONIC ULCER OF LEFT CALF 09/24/2017 CAMILO MONTANO MD, Ot E11.622 TYPE 2 DIABETES MELLITUS WITH OTHER SKIN 09/24/2017 CAMILO MONTANO MD, Ot L97.222 NON-PRESSURE CHRONIC ULCER OF LEFT CALF 09/24/2017 CAMILO MONTANO MD, Ot E11.622 TYPE 2 DIABETES MELLITUS WITH OTHER SKIN 09/24/2017 CAMILO MONTANO MD, Ot L97.222 NON-PRESSURE CHRONIC ULCER OF LEFT CALF 09/24/2017 CAMILO MONTANO MD, Ot E11.622 TYPE 2 DIABETES MELLITUS WITH OTHER SKIN 09/24/2017 CAMILO MONTANO MD, Ot L97.222 NON-PRESSURE CHRONIC ULCER OF LEFT CALF 09/24/2017 STEFFANIE MORROW APRN Ot E11.622 TYPE 2 DIABETES MELLITUS WITH OTHER SKIN 09/24/2017 STEFFANIE MORROW APRN Ot L97.222 NON-PRESSURE CHRONIC ULCER OF LEFT CALF 09/24/2017 CAMILO MONTANO MD Ot E11.622 TYPE 2 DIABETES MELLITUS WITH OTHER SKIN 09/24/2017 CAMILO MONTANO MD Ot L97.222 NON-PRESSURE CHRONIC ULCER OF LEFT CALF 09/24/2017 CAMILO MONTANO MD, Ot E11.622 TYPE 2 DIABETES MELLITUS WITH OTHER SKIN 09/24/2017 CAMILO MONTANO MD Ot L97.222 NON-PRESSURE CHRONIC ULCER OF LEFT CALF 09/25/2017 Ot 250.00 DIAB ENZO WO COMPL, TYPE II OR UNSPEC TY 09/25/2017 Ot 343.9 CEREBRAL PALSY NOS 09/25/2017 Ot 790.6 ABN BLOOD CHEMISTRY NEC 09/25/2017 Ot V10.3 HX OF BREAST MALIGNANCY 09/25/2017 Ot V45.71 ACQUIRED ABSENCE OF BREAST AND NIPPLE 09/25/2017 Ot V58.69 OTH MED,LT, CURRENT USE 09/25/2017 Ot V67.09 SURGERY FOLLOW-UP, OTHER SURGERY 09/25/2017 Ot 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 09/25/2017 Ot 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 09/25/2017 CLAUS SANDERSON DIRECTOR OPERATING Ot 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 09/25/2017 CLAUS SANDERSON DIRECTOR OPERATING Ot 793.89 OTH (ABN) FINDINGS ON RADIOLOGICAL EXAMI 09/25/2017 LEONIDAS MYRICK N Ot 250.00 DIAB ENZO WO COMPL, TYPE II OR UNSPEC TY 09/25/2017 LEONIDAS MYRICK N Ot 343.9 CEREBRAL PALSY NOS 09/25/2017 LEONIDAS MYRICK N Ot V10.3 HX OF BREAST MALIGNANCY 09/25/2017 LEONIDAS MYRICK N Ot V45.71 ACQUIRED ABSENCE OF BREAST AND NIPPLE 09/25/2017 LEONIDAS MYRICK N Ot V58.69 OTH MED,LT,CURRENT USE 09/25/2017 RAMEZ BOBAN N Ot V67.09 SURGERY FOLLOW-UP, OTHER SURGERY 09/25/2017 CLAUS SANDERSON DIRECTOR OPERATING Ot 250.00 DIAB ENZO WO COMPL, TYPE II OR UNSPEC TY 09/25/2017 CLAUS SANDERSON S DIRECTOR OPERATING Ot 343.9 CEREBRAL PALSY NOS 09/25/2017 CLAUS SANDERSON DIRECTOR OPERATING Ot 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 09/25/2017 CLAUS SANDERSON S DIRECTOR OPERATING Ot V13.89 PERSONAL HISTORY OF OTHER SPECIFIED DISE 09/25/2017 SANDERSONCLAUS De La Rosa S DIRECTOR OPERATING Ot V45.71 ACQUIRED ABSENCE OF BREAST AND NIPPLE 09/25/2017 CLAUS SANDERSON DIRECTOR OPERATING Ot V58.69 OTH MED,LT,CURRENT USE 09/25/2017 SANDERSONCLAUS De La Rosa DIRECTOR OPERATING Ot V67.09 SURGERY FOLLOW-UP, OTHER SURGERY 09/25/2017 CLAUS SANDERSON DIRECTOR OPERATING Ot 793.89 OTH (ABN) FINDINGS ON RADIOLOGICAL EXAMI 09/25/2017 LEONIDAS MYRICK N Ot 343.9 CEREBRAL PALSY NOS 09/25/2017 LEONIDAS MYRICK N Ot V13.89 PERSONAL HISTORY OF OTHER SPECIFIED DISE 09/25/2017 LEONIDAS MYRICK N Ot V45.71 ACQUIRED ABSENCE OF BREAST AND NIPPLE 09/25/2017 LEONIADS MYRICK N Ot V58.69 OTH MED,LT,CURRENT USE 09/25/2017 RAMEZ BOBAN N Ot V67.09 SURGERY FOLLOW-UP, OTHER SURGERY 09/25/2017 LEONIDAS MYRICK Anurag Ot 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 09/25/2017 LEONIDAS MYRICK Ot 793.89 OTH (ABN) FINDINGS ON RADIOLOGICAL EXAMI 09/25/2017 CLAUS SANDERSON DIRECTOR OPERATING Ot 250.00 DIAB ENZO WO COMPL, TYPE II OR UNSPEC TY 09/25/2017 CLAUS SANDERSON DIRECTOR OPERATING Ot 343.9 CEREBRAL PALSY NOS 09/25/2017 CLAUS SANDERSON DIRECTOR OPERATING Ot V13.89 PERSONAL HISTORY OF OTHER SPECIFIED DISE 09/25/2017 CLAUS SANDERSON DIRECTOR OPERATING Ot V45.71 ACQUIRED ABSENCE OF BREAST AND NIPPLE 09/25/2017 CLAUS SANDERSON DIRECTOR OPERATING Ot V58.69 OTH MED,LT,CURRENT USE 09/25/2017 CLAUS SANDERSON DIRECTOR OPERATING Ot V67.09 SURGERY FOLLOW-UP, OTHER SURGERY 09/25/2017 CLAUS SANDERSON DIRECTOR OPERATING Ot 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 09/25/2017 CLAUS SANDERSON DIRECTOR OPERATING Ot 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 09/25/2017 SANDERSONCLAUS De La Rosa DIRECTOR OPERATING Ot 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 09/25/2017 LEONIDAS MYRICK Anurag Ot 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 09/25/2017 CAMILO MONTANO MD, Ot E11.622 TYPE 2 DIABETES MELLITUS WITH OTHER SKIN 09/25/2017 CAMILO MONTANO MD Ot L97.222 NON-PRESSURE CHRONIC ULCER OF LEFT CALF 09/25/2017 CAMILO MONTANO MD, Ot E11.622 TYPE 2 DIABETES MELLITUS WITH OTHER SKIN 09/25/2017 CAMILO MONTANO MD Ot L97.222 NON-PRESSURE CHRONIC ULCER OF LEFT CALF 09/25/2017 CAMILO MONTANO MD, Ot E11.622 TYPE 2 DIABETES MELLITUS WITH OTHER SKIN 09/25/2017 CAMILO MONTANO MD Ot L97.222 NON-PRESSURE CHRONIC ULCER OF LEFT CALF 09/25/2017 CAMILO MONTANO MD, Ot E11.622 TYPE 2 DIABETES MELLITUS WITH OTHER SKIN 09/25/2017 CAMILO MONTANO MD Ot L97.222 NON-PRESSURE CHRONIC ULCER OF LEFT CALF 09/25/2017 CAMILO MONTANO MD Ot E11.622 TYPE 2 DIABETES MELLITUS WITH OTHER SKIN 09/25/2017 CAMILO MONTANO MD Ot L97.222 NON-PRESSURE CHRONIC ULCER OF LEFT CALF 09/25/2017 CAMILO MONTANO MD, Ot E11.622 TYPE 2 DIABETES MELLITUS WITH OTHER SKIN 09/25/2017 CAMILO MONTANO MD Ot L97.222 NON-PRESSURE CHRONIC ULCER OF LEFT CALF 09/25/2017 CAMILO MONTANO MD, Ot E11.622 TYPE 2 DIABETES MELLITUS WITH OTHER SKIN 09/25/2017 CAMILO MONTANO MD Ot L97.222 NON-PRESSURE CHRONIC ULCER OF LEFT CALF 09/25/2017 CAMILO MONTANO MD, Ot E11.622 TYPE 2 DIABETES MELLITUS WITH OTHER SKIN 09/25/2017 CAMILO MONTANO MD Ot L97.222 NON-PRESSURE CHRONIC ULCER OF LEFT CALF 09/25/2017 CAMILO MONTANO MD, Ot E11.622 TYPE 2 DIABETES MELLITUS WITH OTHER SKIN 09/25/2017 CAMILO MONTANO MD Ot L97.222 NON-PRESSURE CHRONIC ULCER OF LEFT CALF 09/25/2017 CAMILO MONTANO MD, Ot E11.622 TYPE 2 DIABETES MELLITUS WITH OTHER SKIN 09/25/2017 CAMILO MONTANO MD Ot L97.222 NON-PRESSURE CHRONIC ULCER OF LEFT CALF 09/25/2017 CAMILO MONTANO MD, Ot E11.622 TYPE 2 DIABETES MELLITUS WITH OTHER SKIN 09/25/2017 CAMILO MONTANO MD Ot L97.222 NON-PRESSURE CHRONIC ULCER OF LEFT CALF 09/25/2017 CAMILO MONTANO MD, Ot E11.622 TYPE 2 DIABETES MELLITUS WITH OTHER SKIN 09/25/2017 CAMILO MONTANO MD Ot L97.222 NON-PRESSURE CHRONIC ULCER OF LEFT CALF 09/25/2017 CAMILO MONTANO MD, Ot E11.622 TYPE 2 DIABETES MELLITUS WITH OTHER SKIN 09/25/2017 CAMILO MONTANO MD Ot L97.222 NON-PRESSURE CHRONIC ULCER OF LEFT CALF 09/25/2017 CAMILO MONTANO MD Ot Z79.2 DETENTION (CURRENT) USE OF ANTIBIOTICS 09/25/2017 CAMILO MONTANO MD, Ot E11.622 TYPE 2 DIABETES MELLITUS WITH OTHER SKIN 09/25/2017 CAMILO MONTANO MD Ot L97.222 NON-PRESSURE CHRONIC ULCER OF LEFT CALF 09/25/2017 CAMILO MONTANO MD, Ot E11.622 TYPE 2 DIABETES MELLITUS WITH OTHER SKIN 09/25/2017 CAMILO MONTANO MD Ot L97.222 NON-PRESSURE CHRONIC ULCER OF LEFT CALF 09/25/2017 STEFFANIE 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 Z45.2 ENCOUNTER FOR ADJUSTMENT AND MANAGEMENT 09/25/2017 STEFFANIE MORROW APRN Ot Z79.2 DETENTION (CURRENT) USE OF ANTIBIOTICS 09/25/2017 CAMILO MONTANO MD, Ot E11.622 TYPE 2 DIABETES MELLITUS WITH OTHER SKIN 09/25/2017 CAMILO MONTANO MD, Ot L97.222 NON-PRESSURE CHRONIC ULCER OF LEFT CALF 09/25/2017 CAMILO MONTANO MD, Ot E11.622 TYPE 2 DIABETES MELLITUS WITH OTHER SKIN 09/25/2017 CAMILO MONTANO MD, Ot L97.222 NON-PRESSURE CHRONIC ULCER OF LEFT CALF 09/25/2017 STEFFANIE MORROW APRN Ot E11.622 TYPE 2 DIABETES MELLITUS WITH OTHER SKIN 09/25/2017 STEFFANIE MORROW APRN Ot L97.222 NON-PRESSURE CHRONIC ULCER OF LEFT CALF 09/25/2017 CAMILO MONTANO MD, Ot E11.622 TYPE 2 DIABETES MELLITUS WITH OTHER SKIN 09/25/2017 CAMILO MONTANO MD, Ot L97.222 NON-PRESSURE CHRONIC ULCER OF LEFT CALF 09/25/2017 CAMILO MONTANO MD, Ot L97.222 NON-PRESSURE CHRONIC ULCER OF LEFT CALF 09/25/2017 STEFFANIE MORROW APRN Ot E11.622 TYPE 2 DIABETES MELLITUS WITH OTHER SKIN 09/25/2017 STEFFANIE MORROW APRN Ot L97.222 NON-PRESSURE CHRONIC ULCER OF LEFT CALF 09/25/2017 CAMILO MONTANO MD, Ot E11.622 TYPE 2 DIABETES MELLITUS WITH OTHER SKIN 09/25/2017 CAMILO MONTANO MD, Ot L97.222 NON-PRESSURE CHRONIC ULCER OF LEFT CALF 09/25/2017 CAMILO MONTANO MD, Ot E11.622 TYPE 2 DIABETES MELLITUS WITH OTHER SKIN 09/25/2017 CAMILO MONTANO MD, Ot L97.222 NON-PRESSURE CHRONIC ULCER OF LEFT CALF 09/25/2017 CAMILO MONTANO MD, Ot E11.622 TYPE 2 DIABETES MELLITUS WITH OTHER SKIN 09/25/2017 CAMILO MONTANO MD, Ot L97.222 NON-PRESSURE CHRONIC ULCER OF LEFT CALF 09/25/2017 STEFFANIE MORROW APRN Ot Z45.2 ENCOUNTER FOR ADJUSTMENT AND MANAGEMENT 09/25/2017 CAMILO MONTANO MD, Ot E11.622 TYPE 2 DIABETES MELLITUS WITH OTHER SKIN 09/25/2017 CHARMAINE MD, CAMILO D Ot L97.222 NON-PRESSURE CHRONIC ULCER OF LEFT CALF 09/25/2017 CAMILO MONTANO MD, Ot E11.622 TYPE 2 DIABETES MELLITUS WITH OTHER SKIN 09/25/2017 CAMILO MONTANO MD Ot L97.222 NON-PRESSURE CHRONIC ULCER OF LEFT CALF 09/25/2017 CAMILO MONTANO MD, Ot E11.622 TYPE 2 DIABETES MELLITUS WITH OTHER SKIN 09/25/2017 CAMILO MONTANO MD Ot L97.222 NON-PRESSURE CHRONIC ULCER OF LEFT CALF 09/25/2017 CAMILO MONTANO MD, Ot E11.622 TYPE 2 DIABETES MELLITUS WITH OTHER SKIN 09/25/2017 CAMILO MONTANO MD Ot L97.222 NON-PRESSURE CHRONIC ULCER OF LEFT CALF 09/25/2017 CAMILO MONTANO MD, Ot E11.622 TYPE 2 DIABETES MELLITUS WITH OTHER SKIN 09/25/2017 CAMILO MONTANO MD Ot L97.222 NON-PRESSURE CHRONIC ULCER OF LEFT CALF 09/25/2017 CAMILO MONTANO MD, Ot E11.622 TYPE 2 DIABETES MELLITUS WITH OTHER SKIN 09/25/2017 CAMILO MONTANO MD Ot L97.222 NON-PRESSURE CHRONIC ULCER OF LEFT CALF 09/25/2017 CAMILO MONTANO MD, Ot E11.622 TYPE 2 DIABETES MELLITUS WITH OTHER SKIN 09/25/2017 CAMILO MONTANO MD Ot L97.222 NON-PRESSURE CHRONIC ULCER OF LEFT CALF 09/25/2017 STEFFANIE MORROW APRN Ot E11.622 TYPE 2 DIABETES MELLITUS WITH OTHER SKIN 09/25/2017 STEFFANIE MORROW APRN Ot L97.222 NON-PRESSURE CHRONIC ULCER OF LEFT CALF 09/25/2017 CAMILO MONTANO MD, Ot E11.622 TYPE 2 DIABETES MELLITUS WITH OTHER SKIN 09/25/2017 CAMILO MONTANO MD Ot L97.222 NON-PRESSURE CHRONIC ULCER OF LEFT CALF 09/25/2017 CAMILO MONTANO MD, Ot E11.622 TYPE 2 DIABETES MELLITUS WITH OTHER SKIN 09/25/2017 CAMILO MONTANO MD Ot L97.222 NON-PRESSURE CHRONIC ULCER OF LEFT CALF 09/26/2017 CAMILO MONTANO MD, Ot E11.622 TYPE 2 DIABETES MELLITUS WITH OTHER SKIN 09/26/2017 CAMILO MONTANO MD Ot L97.222 NON-PRESSURE CHRONIC ULCER OF LEFT CALF 09/26/2017 CAMILO MONTANO MD Ot E11.622 TYPE 2 DIABETES MELLITUS WITH OTHER SKIN 09/26/2017 CAMILO MONTANO MD Ot L97.222 NON-PRESSURE CHRONIC ULCER OF LEFT CALF 10/03/2017 CAMILO MONTANO MD, Ot E11.622 TYPE 2 DIABETES MELLITUS WITH OTHER SKIN 10/03/2017 CAMILO MONTANO MD Ot L97.222 NON-PRESSURE CHRONIC ULCER OF LEFT CALF 10/03/2017 STEFFANIE MORROW APRN Ot E11.622 TYPE 2 DIABETES MELLITUS WITH OTHER SKIN 10/03/2017 STEFFANIE MORROW APRN Ot L97.222 NON-PRESSURE CHRONIC ULCER OF LEFT CALF 10/06/2017 CAMILO MONTANO MD, Ot E11.622 TYPE 2 DIABETES MELLITUS WITH OTHER SKIN 10/06/2017 CAMILO MONTANO MD Ot L97.222 NON-PRESSURE CHRONIC ULCER OF LEFT CALF 10/08/2017 CAMILO MONTANO MD, Ot E11.622 TYPE 2 DIABETES MELLITUS WITH OTHER SKIN 10/08/2017 CAMILO MONTANO MD, Ot L97.222 NON-PRESSURE CHRONIC ULCER OF LEFT CALF 10/08/2017 CAMILO MONTANO MD, Ot E11.622 TYPE 2 DIABETES MELLITUS WITH OTHER SKIN 10/08/2017 CAMILO MONTANO MD Ot L97.222 NON-PRESSURE CHRONIC ULCER OF LEFT CALF 10/08/2017 CAMILO MONTANO MD, Ot E11.622 TYPE 2 DIABETES MELLITUS WITH OTHER SKIN 10/08/2017 CAMILO MONTANO MD Ot L97.222 NON-PRESSURE CHRONIC ULCER OF LEFT CALF 10/08/2017 STEFFANIE MORROW APRN Ot E11.622 TYPE 2 DIABETES MELLITUS WITH OTHER SKIN 10/08/2017 STEFFANIE MORROW APRN Ot L97.222 NON-PRESSURE CHRONIC ULCER OF LEFT CALF 10/10/2017 CAMILO MONTANO MD, Ot E11.622 TYPE 2 DIABETES MELLITUS WITH OTHER SKIN 10/10/2017 CAMILO MONTANO MD Ot L97.222 NON-PRESSURE CHRONIC ULCER OF LEFT CALF 10/10/2017 CAMILO MONTANO MD, Ot E11.622 TYPE 2 DIABETES MELLITUS WITH OTHER SKIN 10/10/2017 CAMILO MONTANO MD Ot L97.222 NON-PRESSURE CHRONIC ULCER OF LEFT CALF 10/13/2017 CAMILO MONTANO MD, Ot E11.622 TYPE 2 DIABETES MELLITUS WITH OTHER SKIN 10/13/2017 CAMILO MONTANO MD Ot L97.222 NON-PRESSURE CHRONIC ULCER OF LEFT CALF 10/13/2017 Ot 250.00 DIAB ENZO WO COMPL, TYPE II OR UNSPEC TY 10/13/2017 Ot 343.9 CEREBRAL PALSY NOS 10/13/2017 Ot 790.6 ABN BLOOD CHEMISTRY NEC 10/13/2017 Ot V10.3 HX OF BREAST MALIGNANCY 10/13/2017 Ot V45.71 ACQUIRED ABSENCE OF BREAST AND NIPPLE 10/13/2017 Ot V58.69 OTH MED,LT, CURRENT USE 10/13/2017 Ot V67.09 SURGERY FOLLOW-UP, OTHER SURGERY 10/13/2017 Ot 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 10/13/2017 Ot 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 10/13/2017 CLAUS SANDERSON DIRECTOR OPERATING Ot 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 10/13/2017 CLAUS SANDERSON DIRECTOR OPERATING Ot 793.89 OTH (ABN) FINDINGS ON RADIOLOGICAL EXAMI 10/13/2017 LEONIDAS MYRICK N Ot 250.00 DIAB ENZO WO COMPL, TYPE II OR UNSPEC TY 10/13/2017 LEONIDAS MYRICK N Ot 343.9 CEREBRAL PALSY NOS 10/13/2017 LEONIDAS MYRICK Anurag Ot V10.3 HX OF BREAST MALIGNANCY 10/13/2017 LEONIDAS MYRICK N Ot V45.71 ACQUIRED ABSENCE OF BREAST AND NIPPLE 10/13/2017 LEONIDAS MYRICK Anurag Ot V58.69 OTH MED,LT,CURRENT USE 10/13/2017 LEONIDAS MYRICK N Ot V67.09 SURGERY FOLLOW-UP, OTHER SURGERY 10/13/2017 CLAUS SANDERSON DIRECTOR OPERATING Ot 250.00 DIAB ENZO WO COMPL, TYPE II OR UNSPEC TY 10/13/2017 CLAUS SANDERSON DIRECTOR OPERATING Ot 343.9 CEREBRAL PALSY NOS 10/13/2017 CLAUS SANDERSON DIRECTOR OPERATING Ot 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 10/13/2017 CLAUS SANDERSON DIRECTOR OPERATING Ot V13.89 PERSONAL HISTORY OF OTHER SPECIFIED DISE 10/13/2017 CLAUS SANDERSON DIRECTOR OPERATING Ot V45.71 ACQUIRED ABSENCE OF BREAST AND NIPPLE 10/13/2017 CLAUS SANDERSON DIRECTOR OPERATING Ot V58.69 OTH MED,LT,CURRENT USE 10/13/2017 CLAUS SANDERSON S DIRECTOR OPERATING Ot V67.09 SURGERY FOLLOW-UP, OTHER SURGERY 10/13/2017 CLAUS SANDERSON DIRECTOR OPERATING Ot 793.89 OTH (ABN) FINDINGS ON RADIOLOGICAL EXAMI 10/13/2017 LEONIDAS MYRICK N Ot 343.9 CEREBRAL PALSY NOS 10/13/2017 LEONIDAS MYRICK Ot V13.89 PERSONAL HISTORY OF OTHER SPECIFIED DISE 10/13/2017 LEONIDAS MYRICK Ot V45.71 ACQUIRED ABSENCE OF BREAST AND NIPPLE 10/13/2017 LEONIDAS MYRICK Ot V58.69 OTH MED,LT,CURRENT USE 10/13/2017 LEONIDAS MYRICK Ot V67.09 SURGERY FOLLOW-UP, OTHER SURGERY 10/13/2017 LEONIDAS MYRICK Ot 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 10/13/2017 LEONIDAS MYRICK Ot 793.89 OTH (ABN) FINDINGS ON RADIOLOGICAL EXAMI 10/13/2017 CLAUS SANDERSON DIRECTOR OPERATING Ot 250.00 DIAB ENZO WO COMPL, TYPE II OR UNSPEC TY 10/13/2017 CLAUS SANDERSON DIRECTOR OPERATING Ot 343.9 CEREBRAL PALSY NOS 10/13/2017 SANDERSONISSALEO De La Rosa DIRECTOR OPERATING Ot V13.89 PERSONAL HISTORY OF OTHER SPECIFIED DISE 10/13/2017 CLAUS SANDERSON DIRECTOR OPERATING Ot V45.71 ACQUIRED ABSENCE OF BREAST AND NIPPLE 10/13/2017 CLAUS SANDERSON DIRECTOR OPERATING Ot V58.69 OTH MED,LT,CURRENT USE 10/13/2017 SANDERSON CLAUS S DIRECTOR OPERATING Ot V67.09 SURGERY FOLLOW-UP, OTHER SURGERY 10/13/2017 CLAUS SANDERSON DIRECTOR OPERATING Ot 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 10/13/2017 CLAUS SANDERSON DIRECTOR OPERATING Ot 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 10/13/2017 CLAUS SANDERSON DIRECTOR OPERATING Ot 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 10/13/2017 LEONIDAS MYRICK N Ot 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 10/13/2017 CAMILO MONTANO MD Ot E11.622 TYPE 2 DIABETES MELLITUS WITH OTHER SKIN 10/13/2017 CAMILO MONTAON MD Ot L97.222 NON-PRESSURE CHRONIC ULCER OF LEFT CALF 10/13/2017 CAMILO MONTANO MD Ot E11.622 TYPE 2 DIABETES MELLITUS WITH OTHER SKIN 10/13/2017 CAMILO MONTANO MD Ot L97.222 NON-PRESSURE CHRONIC ULCER OF LEFT CALF 10/13/2017 CAMILO MONTANO MD Ot E11.622 TYPE 2 DIABETES MELLITUS WITH OTHER SKIN 10/13/2017 CAMILO MONTANO MD, Ot L97.222 NON-PRESSURE CHRONIC ULCER OF LEFT CALF 10/13/2017 CAMILO MONTANO MD, Ot E11.622 TYPE 2 DIABETES MELLITUS WITH OTHER SKIN 10/13/2017 CAMILO MONTANO MD, Ot L97.222 NON-PRESSURE CHRONIC ULCER OF LEFT CALF 10/13/2017 CAMILO MONTANO MD, Ot E11.622 TYPE 2 DIABETES MELLITUS WITH OTHER SKIN 10/13/2017 CAMILO MONTANO MD, Ot L97.222 NON-PRESSURE CHRONIC ULCER OF LEFT CALF 10/13/2017 CAMILO MONTANO MD, Ot E11.622 TYPE 2 DIABETES MELLITUS WITH OTHER SKIN 10/13/2017 CAMILO MONTANO MD, Ot L97.222 NON-PRESSURE CHRONIC ULCER OF LEFT CALF 10/13/2017 CAMILO MONTANO MD, Ot E11.622 TYPE 2 DIABETES MELLITUS WITH OTHER SKIN 10/13/2017 CAMILO MONTANO MD, Ot L97.222 NON-PRESSURE CHRONIC ULCER OF LEFT CALF 10/13/2017 CAMILO MONTANO MD, Ot E11.622 TYPE 2 DIABETES MELLITUS WITH OTHER SKIN 10/13/2017 CAMILO MONTANO MD, Ot L97.222 NON-PRESSURE CHRONIC ULCER OF LEFT CALF 10/13/2017 CAMILO MONTANO MD, Ot E11.622 TYPE 2 DIABETES MELLITUS WITH OTHER SKIN 10/13/2017 CAMILO MONTANO MD Ot L97.222 NON-PRESSURE CHRONIC ULCER OF LEFT CALF 10/13/2017 CAMILO MONTANO MD, Ot E11.622 TYPE 2 DIABETES MELLITUS WITH OTHER SKIN 10/13/2017 CAMILO MONTANO MD, Ot L97.222 NON-PRESSURE CHRONIC ULCER OF LEFT CALF 10/13/2017 CAMILO MONTANO MD, Ot E11.622 TYPE 2 DIABETES MELLITUS WITH OTHER SKIN 10/13/2017 CAMILO MONTANO MD, Ot L97.222 NON-PRESSURE CHRONIC ULCER OF LEFT CALF 10/13/2017 CAMILO MONTANO MD, Ot E11.622 TYPE 2 DIABETES MELLITUS WITH OTHER SKIN 10/13/2017 CAMILO MONTANO MD, Ot L97.222 NON-PRESSURE CHRONIC ULCER OF LEFT CALF 10/13/2017 CAMILO MONTANO MD, Ot E11.622 TYPE 2 DIABETES MELLITUS WITH OTHER SKIN 10/13/2017 CAMILO MONTANO MD, Ot L97.222 NON-PRESSURE CHRONIC ULCER OF LEFT CALF 10/13/2017 CAMILO MONTANO MD Ot Z79.2 DETENTION (CURRENT) USE OF ANTIBIOTICS 10/13/2017 CAMILO MONTANO MD, Ot E11.622 TYPE 2 DIABETES MELLITUS WITH OTHER SKIN 10/13/2017 CAMILO MONTANO MD, Ot L97.222 NON-PRESSURE CHRONIC ULCER OF LEFT CALF 10/13/2017 CAMILO MONTANO MD, Ot E11.622 TYPE 2 DIABETES MELLITUS WITH OTHER SKIN 10/13/2017 CAMILO MONTANO MD, Ot L97.222 NON-PRESSURE CHRONIC ULCER OF LEFT CALF 10/13/2017 STEFFANIE MORROW APRN Ot Z45.2 ENCOUNTER FOR ADJUSTMENT AND MANAGEMENT 10/13/2017 STEFFANIE MORROW APRN Ot Z79.2 MANAGER MEDICAID (CURRENT) USE OF ANTIBIOTICS 10/13/2017 CAMILO MONTANO MD, Ot E11.622 TYPE 2 DIABETES MELLITUS WITH OTHER SKIN 10/13/2017 CAMILO MONTANO MD, Ot L97.222 NON-PRESSURE CHRONIC ULCER OF LEFT CALF 10/13/2017 CAMILO MONTANO MD, Ot E11.622 TYPE 2 DIABETES MELLITUS WITH OTHER SKIN 10/13/2017 CAMILO MONTANO MD, Ot L97.222 NON-PRESSURE CHRONIC ULCER OF LEFT CALF 10/13/2017 STEFFANIE MORROW APRN, Ot E11.622 TYPE 2 DIABETES MELLITUS WITH OTHER SKIN 10/13/2017 STEFFANIE MORROW APRN Ot L97.222 NON-PRESSURE CHRONIC ULCER OF LEFT CALF 10/13/2017 CAMILO MONTANO MD, Ot E11.622 TYPE 2 DIABETES MELLITUS WITH OTHER SKIN 10/13/2017 CAMILO MONTANO MD, Ot L97.222 NON-PRESSURE CHRONIC ULCER OF LEFT CALF 10/13/2017 CAMILO MONTANO MD, Ot L97.222 NON-PRESSURE CHRONIC ULCER OF LEFT CALF 10/13/2017 STEFFANIE MORROW APRN Ot E11.622 TYPE 2 DIABETES MELLITUS WITH OTHER SKIN 10/13/2017 STEFFANIE MORROW APRN Ot L97.222 NON-PRESSURE CHRONIC ULCER OF LEFT CALF 10/13/2017 CAMILO MONTANO MD, Ot E11.622 TYPE 2 DIABETES MELLITUS WITH OTHER SKIN 10/13/2017 CAMILO MONTANO MD, Ot L97.222 NON-PRESSURE CHRONIC ULCER OF LEFT CALF 10/13/2017 CAMILO MONTANO MD, Ot E11.622 TYPE 2 DIABETES MELLITUS WITH OTHER SKIN 10/13/2017 CAMILO MONTANO MD, Ot L97.222 NON-PRESSURE CHRONIC ULCER OF LEFT CALF 10/13/2017 CAMILO MONTANO MD, Ot E11.622 TYPE 2 DIABETES MELLITUS WITH OTHER SKIN 10/13/2017 CAMILO MONTANO MD, Ot L97.222 NON-PRESSURE CHRONIC ULCER OF LEFT CALF 10/13/2017 STEFFANIE 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 Z45.2 ENCOUNTER FOR ADJUSTMENT AND MANAGEMENT 10/13/2017 CAMILO MONTANO MD, Ot E11.622 TYPE 2 DIABETES MELLITUS WITH OTHER SKIN 10/13/2017 CAMILO MONTANO MD, Ot L97.222 NON-PRESSURE CHRONIC ULCER OF LEFT CALF 10/13/2017 CAMILO MONTANO MD, Ot E11.622 TYPE 2 DIABETES MELLITUS WITH OTHER SKIN 10/13/2017 CAMILO MONTANO MD, Ot L97.222 NON-PRESSURE CHRONIC ULCER OF LEFT CALF 10/13/2017 CAMILO MONTANO MD, Ot E11.622 TYPE 2 DIABETES MELLITUS WITH OTHER SKIN 10/13/2017 CAMILO MONTANO MD, Ot L97.222 NON-PRESSURE CHRONIC ULCER OF LEFT CALF 10/13/2017 CAMILO MONTANO MD, Ot E11.622 TYPE 2 DIABETES MELLITUS WITH OTHER SKIN 10/13/2017 CAMILO MONTANO MD, Ot L97.222 NON-PRESSURE CHRONIC ULCER OF LEFT CALF 10/13/2017 CAMILO MONTANO MD, Ot E11.622 TYPE 2 DIABETES MELLITUS WITH OTHER SKIN 10/13/2017 CAMILO MONTANO MD, Ot L97.222 NON-PRESSURE CHRONIC ULCER OF LEFT CALF 10/13/2017 CAMILO MONTANO MD, Ot E11.622 TYPE 2 DIABETES MELLITUS WITH OTHER SKIN 10/13/2017 CAMILO MONTANO MD, Ot L97.222 NON-PRESSURE CHRONIC ULCER OF LEFT CALF 10/13/2017 CAMILO MONTANO MD, Ot E11.622 TYPE 2 DIABETES MELLITUS WITH OTHER SKIN 10/13/2017 CAMILO MONTANO MD Ot L97.222 NON-PRESSURE CHRONIC ULCER OF LEFT CALF 10/13/2017 STEFFANIE MORROW APRN Ot E11.622 TYPE 2 DIABETES MELLITUS WITH OTHER SKIN 10/13/2017 STEFFANIE MORROW APRN Ot L97.222 NON-PRESSURE CHRONIC ULCER OF LEFT CALF 10/13/2017 CAMILO MONTANO MD, Ot E11.622 TYPE 2 DIABETES MELLITUS WITH OTHER SKIN 10/13/2017 CAMILO MONTANO MD Ot L97.222 NON-PRESSURE CHRONIC ULCER OF LEFT CALF 10/13/2017 CAMILO MONTANO MD, Ot E11.622 TYPE 2 DIABETES MELLITUS WITH OTHER SKIN 10/13/2017 CAMILO MONTANO MD Ot L97.222 NON-PRESSURE CHRONIC ULCER OF LEFT CALF 10/13/2017 CAMILO MONTANO MD, Ot E11.622 TYPE 2 DIABETES MELLITUS WITH OTHER SKIN 10/13/2017 CAMILO MONTANO MD Ot L97.222 NON-PRESSURE CHRONIC ULCER OF LEFT CALF 10/13/2017 CAMILO MONTANO MD, Ot E11.622 TYPE 2 DIABETES MELLITUS WITH OTHER SKIN 10/13/2017 CAMILO MONTANO MD Ot L97.222 NON-PRESSURE CHRONIC ULCER OF LEFT CALF 10/15/2017 CAMILO MONTANO MD, Ot E11.622 TYPE 2 DIABETES MELLITUS WITH OTHER SKIN 10/15/2017 CAMILO MONTANO MD Ot L97.222 NON-PRESSURE CHRONIC ULCER OF LEFT CALF 10/15/2017 CAMILO MONTANO MD, Ot E11.622 TYPE 2 DIABETES MELLITUS WITH OTHER SKIN 10/15/2017 CAMILO MONTANO MD Ot L97.222 NON-PRESSURE CHRONIC ULCER OF LEFT CALF 10/15/2017 CAMILO MONTANO MD, Ot E11.622 TYPE 2 DIABETES MELLITUS WITH OTHER SKIN 10/15/2017 CAMILO MONTANO MD Ot L97.222 NON-PRESSURE CHRONIC ULCER OF LEFT CALF 10/17/2017 CAMILO MONTANO MD, Ot E11.622 TYPE 2 DIABETES MELLITUS WITH OTHER SKIN 10/17/2017 CAMILO MONTANO MD Ot L97.222 NON-PRESSURE CHRONIC ULCER OF LEFT CALF 10/20/2017 STEFFANIE MORROW APRN Ot E11.622 TYPE 2 DIABETES MELLITUS WITH OTHER SKIN 10/20/2017 STEFFANIE MORROW APRN Ot L97.222 NON-PRESSURE CHRONIC ULCER OF LEFT CALF 10/21/2017 LEONIDAS MYRICK Ot 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 10/21/2017 LEONIDAS MYRICK Ot 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 10/22/2017 CAMILO MONTANO MD, Ot E11.622 TYPE 2 DIABETES MELLITUS WITH OTHER SKIN 10/22/2017 CAMILO MONTANO MD Ot L97.222 NON-PRESSURE CHRONIC ULCER OF LEFT CALF 10/22/2017 CAMILO MONTANO MD, Ot E11.622 TYPE 2 DIABETES MELLITUS WITH OTHER SKIN 10/22/2017 CAMILO MONTANO MD Ot L97.222 NON-PRESSURE CHRONIC ULCER OF LEFT CALF 10/22/2017 CAMILO MONTANO MD Ot E11.622 TYPE 2 DIABETES MELLITUS WITH OTHER SKIN 10/22/2017 CAMILO MONTANO MD Ot L97.222 NON-PRESSURE CHRONIC ULCER OF LEFT CALF 10/24/2017 CAMILO MONTANO MD, Ot E11.622 TYPE 2 DIABETES MELLITUS WITH OTHER SKIN 10/24/2017 CAMILO MONTANO MD Ot L97.222 NON-PRESSURE CHRONIC ULCER OF LEFT CALF 10/29/2017 CAMILO MONTANO MD, Ot E11.622 TYPE 2 DIABETES MELLITUS WITH OTHER SKIN 10/29/2017 CAMILO MONTANO MD, Ot L97.222 NON-PRESSURE CHRONIC ULCER OF LEFT CALF 11/03/2017 CAMILO MONTANO MD, Ot E11.622 TYPE 2 DIABETES MELLITUS WITH OTHER SKIN 11/03/2017 CAMILO MONTANO MD, Ot L97.222 NON-PRESSURE CHRONIC ULCER OF LEFT CALF 11/05/2017 CAMILO MONTANO MD, Ot E11.622 TYPE 2 DIABETES MELLITUS WITH OTHER SKIN 11/05/2017 CAMILO MONTANO MD, Ot L97.222 NON-PRESSURE CHRONIC ULCER OF LEFT CALF 11/06/2017 CAMILO MONTANO MD, Ot E11.622 TYPE 2 DIABETES MELLITUS WITH OTHER SKIN 11/06/2017 CAMILO MONTANO MD, Ot L97.222 NON-PRESSURE CHRONIC ULCER OF LEFT CALF 11/12/2017 LEONIDAS MYRICK Ot 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 11/12/2017 CAMILO MONTANO MD, Ot E11.622 TYPE 2 DIABETES MELLITUS WITH OTHER SKIN 11/12/2017 CMAILO MONTANO MD Ot L97.222 NON-PRESSURE CHRONIC ULCER OF LEFT CALF 11/14/2017 CAMILO MONTANO MD, Ot E11.622 TYPE 2 DIABETES MELLITUS WITH OTHER SKIN 11/14/2017 CAMILO MONTANO MD Ot L97.222 NON-PRESSURE CHRONIC ULCER OF LEFT CALF 11/17/2017 LEONIDAS MYRICK Ot 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 11/17/2017 CAMILO MONTANO MD, Ot E11.622 TYPE 2 DIABETES MELLITUS WITH OTHER SKIN 11/17/2017 CAMILO MONTANO MD Ot L97.222 NON-PRESSURE CHRONIC ULCER OF LEFT CALF 11/18/2017 LEONIDAS MYRICK Ot E11.9 TYPE 2 DIABETES MELLITUS WITHOUT COMPLIC 11/18/2017 LEONIDAS MYRICK Ot G80.9 CEREBRAL PALSY, UNSPECIFIED 11/18/2017 LEONIDAS MYRICK Ot I10 ESSENTIAL (PRIMARY) HYPERTENSION 11/18/2017 LEONIDAS MYRICK Ot Z08 ENCNTR FOR FOLLOW-UP EXAM AFTER TRTMT FO 11/18/2017 LEONIDAS MYRICK N Ot Z79.82 DETENTION (CURRENT) USE OF ASPIRIN 11/18/2017 LEONIDAS MYRICK N Ot Z79.84 MANAGER MEDICAID (CURRENT) USE OF ORAL HYPOGLYC 11/18/2017 LEONIDAS MYRICK N Ot Z79.899 OTHER MANAGER MEDICAID (CURRENT) DRUG THERAPY 11/18/2017 LEONIDAS MYRICK N Ot Z85.3 PERSONAL HISTORY OF MALIGNANT NEOPLASM O 11/19/2017 CAMILO MONTANO MD Ot E11.622 TYPE 2 DIABETES MELLITUS WITH OTHER SKIN 11/19/2017 CAMILO MONTANO MD Ot L97.222 NON-PRESSURE CHRONIC ULCER OF LEFT CALF 11/26/2017 LEONIDAS MYRICK N Ot 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 11/26/2017 RAMEZ LEONIDAS N Ot E11.9 TYPE 2 DIABETES MELLITUS WITHOUT COMPLIC 11/26/2017 LEONIDAS MYRICK N Ot G80.9 CEREBRAL PALSY, UNSPECIFIED 11/26/2017 LEONIDAS MYRICK N Ot I10 ESSENTIAL (PRIMARY) HYPERTENSION 11/26/2017 LEONIDAS MYRICK N Ot Z08 ENCNTR FOR FOLLOW-UP EXAM AFTER TRTMT FO 11/26/2017 LEONIDAS MYRICK N Ot Z79.82 MANAGER MEDICAID (CURRENT) USE OF ASPIRIN 11/26/2017 LEONIDAS MYRICK N Ot Z79.84 MANAGER MEDICAID (CURRENT) USE OF ORAL HYPOGLYC 11/26/2017 LEONIDAS MYRICK N Ot Z79.899 OTHER MANAGER MEDICAID (CURRENT) DRUG THERAPY 11/26/2017 LEONIDAS MYRICK N Ot Z85.3 PERSONAL HISTORY OF MALIGNANT NEOPLASM O 11/27/2017 CAMILO MONTANO MD Ot E11.622 TYPE 2 DIABETES MELLITUS WITH OTHER SKIN 11/27/2017 CAMILO MONTANO MD Ot L97.222 NON-PRESSURE CHRONIC ULCER OF LEFT CALF 11/27/2017 CAMILO MONTANO MD Ot E11.622 TYPE 2 DIABETES MELLITUS WITH OTHER SKIN 11/27/2017 CAMILO MONTANO MD Ot L97.222 NON-PRESSURE CHRONIC ULCER OF LEFT CALF 12/01/2017 CAMILO MONTANO MD Ot E11.622 TYPE 2 DIABETES MELLITUS WITH OTHER SKIN 12/01/2017 CAMILO MONTANO MD Ot L97.222 NON-PRESSURE CHRONIC ULCER OF LEFT CALF 12/01/2017 LEONIDAS MYRICK Ot E11.9 TYPE 2 DIABETES MELLITUS WITHOUT COMPLIC 12/01/2017 LEONIDAS MYRICK Ot G80.9 CEREBRAL PALSY, UNSPECIFIED 12/01/2017 LEONIDAS MYRICK Ot I10 ESSENTIAL (PRIMARY) HYPERTENSION 12/01/2017 LEONIDAS MYRICK Ot Z08 ENCNTR FOR FOLLOW-UP EXAM AFTER TRTMT FO 12/01/2017 LEONIDAS MYRICK Ot Z79.82 DETENTION (CURRENT) USE OF ASPIRIN 12/01/2017 LEONIDAS MYRICK Anurag Ot Z79.84 MANAGER MEDICAID (CURRENT) USE OF ORAL HYPOGLYC 12/01/2017 LEONIDAS MYRICK Ot Z79.899 OTHER MANAGER MEDICAID (CURRENT) DRUG THERAPY 12/01/2017 LEONIDAS MYRICK Ot Z85.3 PERSONAL HISTORY OF MALIGNANT NEOPLASM O 12/03/2017 CAMILO MONTANO MD, Ot E11.622 TYPE 2 DIABETES MELLITUS WITH OTHER SKIN 12/03/2017 CAMILO MONTANO MD, Ot L97.222 NON-PRESSURE CHRONIC ULCER OF LEFT CALF 12/03/2017 CAMILO MONTANO MD, Ot E11.622 TYPE 2 DIABETES MELLITUS WITH OTHER SKIN 12/03/2017 CAMILO MONTANO MD, Ot L97.222 NON-PRESSURE CHRONIC ULCER OF LEFT CALF 12/10/2017 CAMILO MONTANO MD, Ot E11.622 TYPE 2 DIABETES MELLITUS WITH OTHER SKIN 12/10/2017 CAMILO MONTANO MD, Ot L97.222 NON-PRESSURE CHRONIC ULCER OF LEFT CALF 12/12/2017 STEFFANIE MORROW APRN Ot E11.622 TYPE 2 DIABETES MELLITUS WITH OTHER SKIN 12/12/2017 STEFFANIE 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 L97.222 NON-PRESSURE CHRONIC ULCER OF LEFT CALF 12/12/2017 STEFFANIE 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 E11.622 TYPE 2 DIABETES MELLITUS WITH OTHER SKIN 12/12/2017 STEFFANIE 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 L97.222 NON-PRESSURE CHRONIC ULCER OF LEFT CALF 12/17/2017 STEFFANIE MORROW APRN Ot E11.622 TYPE 2 DIABETES MELLITUS WITH OTHER SKIN 12/17/2017 STEFFANIE 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 L97.222 NON-PRESSURE CHRONIC ULCER OF LEFT CALF 12/24/2017 CAMILO MONTANO MD, Ot E11.622 TYPE 2 DIABETES MELLITUS WITH OTHER SKIN 12/24/2017 CAMILO MONTANO MD Ot L97.222 NON-PRESSURE CHRONIC ULCER OF LEFT CALF 12/24/2017 STEFFANIE 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 E11.622 TYPE 2 DIABETES MELLITUS WITH OTHER SKIN 12/24/2017 CRISTHIANSTEFFANIE ROCK WORKER Ot L97.222 NON-PRESSURE CHRONIC ULCER OF LEFT CALF 01/01/2018 STEFFANIE 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 E11.622 TYPE 2 DIABETES MELLITUS WITH OTHER SKIN 01/01/2018 CRISTHIANSTEFFANIE R ROCK WORKER Ot L97.222 NON-PRESSURE CHRONIC ULCER OF LEFT CALF 01/07/2018 STEFFANIE 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 E11.622 TYPE 2 DIABETES MELLITUS WITH OTHER SKIN 01/07/2018 CRISTHIANSTEFFANIE ROCK WORKER Ot L97.222 NON-PRESSURE CHRONIC ULCER OF LEFT CALF 01/08/2018 Ot 250.00 DIAB ENZO WO COMPL, TYPE II OR UNSPEC TY 01/08/2018 Ot 343.9 CEREBRAL PALSY NOS 01/08/2018 Ot 790.6 ABN BLOOD CHEMISTRY NEC 01/08/2018 Ot V10.3 HX OF BREAST MALIGNANCY 01/08/2018 Ot V45.71 ACQUIRED ABSENCE OF BREAST AND NIPPLE 01/08/2018 Ot V58.69 OTH MED,LT, CURRENT USE 01/08/2018 Ot V67.09 SURGERY FOLLOW-UP, OTHER SURGERY 01/08/2018 Ot 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 01/08/2018 Ot 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 01/08/2018 CLAUS SANDERSON S DIRECTOR OPERATING Ot 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 01/08/2018 CLAUS SANDERSON S DIRECTOR OPERATING Ot 793.89 OTH (ABN) FINDINGS ON RADIOLOGICAL EXAMI 01/08/2018 LEONIDAS MYRICK Ot 250.00 DIAB ENZO WO COMPL, TYPE II OR UNSPEC TY 01/08/2018 LEONIDAS MYRICK Ot 343.9 CEREBRAL PALSY NOS 01/08/2018 LEONIDAS MYRICK Ot V10.3 HX OF BREAST MALIGNANCY 01/08/2018 LEONIDAS MYRICK Ot V45.71 ACQUIRED ABSENCE OF BREAST AND NIPPLE 01/08/2018 LEONIDAS MYRICK Ot V58.69 OTH MED,LT,CURRENT USE 01/08/2018 LEONIDAS MYRICK Ot V67.09 SURGERY FOLLOW-UP, OTHER SURGERY 01/08/2018 SANDERSON, HILAH S DIRECTOR OPERATING Ot 250.00 DIAB ENZO WO COMPL, TYPE II OR UNSPEC TY 01/08/2018 SANDERSON, HILAH S DIRECTOR OPERATING Ot 343.9 CEREBRAL PALSY NOS 01/08/2018 CLAUS SANDERSON DIRECTOR OPERATING Ot 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 01/08/2018 SANDERSONCLAUS De La Rosa Rj DIRECTOR OPERATING Ot V13.89 PERSONAL HISTORY OF OTHER SPECIFIED DISE 01/08/2018 SANDERSONCLAUS De La Rosa DIRECTOR OPERATING Ot V45.71 ACQUIRED ABSENCE OF BREAST AND NIPPLE 01/08/2018 SANDERSONCLAUS De La Rosa DIRECTOR OPERATING Ot V58.69 OTH MED,LT,CURRENT USE 01/08/2018 SANDERSONCLAUS De La Rosa Rj DIRECTOR OPERATING Ot V67.09 SURGERY FOLLOW-UP, OTHER SURGERY 01/08/2018 CLAUS SANDERSON DIRECTOR OPERATING Ot 793.89 OTH (ABN) FINDINGS ON RADIOLOGICAL EXAMI 01/08/2018 LEONIDAS MYRICK Ot 343.9 CEREBRAL PALSY NOS 01/08/2018 LEONIDAS MYRICK N Ot V13.89 PERSONAL HISTORY OF OTHER SPECIFIED DISE 01/08/2018 LEONIDAS MYRICK N Ot V45.71 ACQUIRED ABSENCE OF BREAST AND NIPPLE 01/08/2018 LEONIDAS MYRICK Ot V58.69 OTH MED,LT,CURRENT USE 01/08/2018 LEONIDAS MYRICK Ot V67.09 SURGERY FOLLOW-UP, OTHER SURGERY 01/08/2018 LEONIDAS MYRICK N Ot 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 01/08/2018 LEONIDAS MYRICK Ot 793.89 OTH (ABN) FINDINGS ON RADIOLOGICAL EXAMI 01/08/2018 SANDERSONCLAUS De La Rosa Rj DIRECTOR OPERATING Ot 250.00 DIAB ENZO WO COMPL, TYPE II OR UNSPEC TY 01/08/2018 SANDERSONCLAUS De La Rosa Rj DIRECTOR OPERATING Ot 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.9 CEREBRAL PALSY NOS 01/08/2018 SANDERSONCLAUS De La Rosa DIRECTOR OPERATING Ot V13.89 PERSONAL HISTORY OF OTHER SPECIFIED DISE 01/08/2018 SANDERSONCLAUS De La Rosa Rj DIRECTOR OPERATING Ot V45.71 ACQUIRED ABSENCE OF BREAST AND NIPPLE 01/08/2018 ISSA SANDERSONLEO Rj DIRECTOR OPERATING Ot V58.69 OTH MED,LT,CURRENT USE 01/08/2018 SANDERSONCLAUS De La Rosa S DIRECTOR OPERATING Ot V67.09 SURGERY FOLLOW-UP, OTHER SURGERY 01/08/2018 ISSA SANDERSONLEO Rj DIRECTOR OPERATING Ot 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 01/08/2018 SANDERSON, HILAH S DIRECTOR OPERATING Ot 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 01/08/2018 CLAUS SANDERSON DIRECTOR OPERATING Ot 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 01/08/2018 LEONIDAS MYRICK N Ot 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 01/08/2018 LEONIDAS MYRICK N Ot 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 01/08/2018 CAMILO MONTANO MD, Ot E11.622 TYPE 2 DIABETES MELLITUS WITH OTHER SKIN 01/08/2018 CAMILO MONTANO MD Ot L97.222 NON-PRESSURE CHRONIC ULCER OF LEFT CALF 01/08/2018 CAMILO MONTANO MD, Ot E11.622 TYPE 2 DIABETES MELLITUS WITH OTHER SKIN 01/08/2018 CAMILO MONTANO MD Ot L97.222 NON-PRESSURE CHRONIC ULCER OF LEFT CALF 01/08/2018 CAIMLO MONTANO MD, Ot E11.622 TYPE 2 DIABETES MELLITUS WITH OTHER SKIN 01/08/2018 CAMILO MONTANO MD Ot L97.222 NON-PRESSURE CHRONIC ULCER OF LEFT CALF 01/08/2018 CAMILO MONTANO MD, Ot E11.622 TYPE 2 DIABETES MELLITUS WITH OTHER SKIN 01/08/2018 CAMILO MONTANO MD Ot L97.222 NON-PRESSURE CHRONIC ULCER OF LEFT CALF 01/08/2018 CAMILO MONTANO MD Ot E11.622 TYPE 2 DIABETES MELLITUS WITH OTHER SKIN 01/08/2018 CAMILO MONTANO MD Ot L97.222 NON-PRESSURE CHRONIC ULCER OF LEFT CALF 01/08/2018 CAMILO MONTANO MD Ot E11.622 TYPE 2 DIABETES MELLITUS WITH OTHER SKIN 01/08/2018 CAMILO MONTANO MD Ot L97.222 NON-PRESSURE CHRONIC ULCER OF LEFT CALF 01/08/2018 CAMILO MONTANO MD Ot E11.622 TYPE 2 DIABETES MELLITUS WITH OTHER SKIN 01/08/2018 CAMILO MONTANO MD Ot L97.222 NON-PRESSURE CHRONIC ULCER OF LEFT CALF 01/08/2018 CAMILO MONTANO MD Ot E11.622 TYPE 2 DIABETES MELLITUS WITH OTHER SKIN 01/08/2018 CAMILO MONTANO MD Ot L97.222 NON-PRESSURE CHRONIC ULCER OF LEFT CALF 01/08/2018 CAMILO MONTANO MD Ot E11.622 TYPE 2 DIABETES MELLITUS WITH OTHER SKIN 01/08/2018 CAMILO MONTANO MD Ot L97.222 NON-PRESSURE CHRONIC ULCER OF LEFT CALF 01/08/2018 CAMILO MONTANO MD, Ot E11.622 TYPE 2 DIABETES MELLITUS WITH OTHER SKIN 01/08/2018 CAMILO MONTANO MD, Ot L97.222 NON-PRESSURE CHRONIC ULCER OF LEFT CALF 01/08/2018 CAMILO MONTANO MD, Ot E11.622 TYPE 2 DIABETES MELLITUS WITH OTHER SKIN 01/08/2018 CAMILO MONTANO MD, Ot L97.222 NON-PRESSURE CHRONIC ULCER OF LEFT CALF 01/08/2018 CAMILO MONTANO MD, Ot E11.622 TYPE 2 DIABETES MELLITUS WITH OTHER SKIN 01/08/2018 CAMILO MONTANO MD, Ot L97.222 NON-PRESSURE CHRONIC ULCER OF LEFT CALF 01/08/2018 CAMILO MONTANO MD, Ot E11.622 TYPE 2 DIABETES MELLITUS WITH OTHER SKIN 01/08/2018 CAMILO MONTANO MD, Ot L97.222 NON-PRESSURE CHRONIC ULCER OF LEFT CALF 01/08/2018 CAMILO MONTANO MD, Ot Z79.2 DETENTION (CURRENT) USE OF ANTIBIOTICS 01/08/2018 CAMILO MONTANO MD, Ot E11.622 TYPE 2 DIABETES MELLITUS WITH OTHER SKIN 01/08/2018 CAMIOL MONTANO MD, Ot L97.222 NON-PRESSURE CHRONIC ULCER OF LEFT CALF 01/08/2018 CAMILO MONTANO MD, Ot E11.622 TYPE 2 DIABETES MELLITUS WITH OTHER SKIN 01/08/2018 CAMILO MONTANO MD, Ot L97.222 NON-PRESSURE CHRONIC ULCER OF LEFT CALF 01/08/2018 STEFFANIE 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 Z45.2 ENCOUNTER FOR ADJUSTMENT AND MANAGEMENT 01/08/2018 STEFFANIE MORROW APRN Ot Z79.2 DETENTION (CURRENT) USE OF ANTIBIOTICS 01/08/2018 CAMILO MONTANO MD, Ot E11.622 TYPE 2 DIABETES MELLITUS WITH OTHER SKIN 01/08/2018 CAMILO MONTANO MD, Ot L97.222 NON-PRESSURE CHRONIC ULCER OF LEFT CALF 01/08/2018 CAMILO MONTANO MD, Ot E11.622 TYPE 2 DIABETES MELLITUS WITH OTHER SKIN 01/08/2018 CAMILO MONTANO MD, Ot L97.222 NON-PRESSURE CHRONIC ULCER OF LEFT CALF 01/08/2018 STEFFANIE MORROW APRN Ot E11.622 TYPE 2 DIABETES MELLITUS WITH OTHER SKIN 01/08/2018 STEFFANIE 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 L97.222 NON-PRESSURE CHRONIC ULCER OF LEFT CALF 01/08/2018 CAMILO MONTANO MD, Ot E11.622 TYPE 2 DIABETES MELLITUS WITH OTHER SKIN 01/08/2018 CAMILO MONTANO MD, Ot L97.222 NON-PRESSURE CHRONIC ULCER OF LEFT CALF 01/08/2018 CAMILO MONTANO MD Ot L97.222 NON-PRESSURE CHRONIC ULCER OF LEFT CALF 01/08/2018 STEFFANIE 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 E11.622 TYPE 2 DIABETES MELLITUS WITH OTHER SKIN 01/08/2018 STEFFANIE 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 L97.222 NON-PRESSURE CHRONIC ULCER OF LEFT CALF 01/08/2018 CAMILO MONTANO MD, Ot E11.622 TYPE 2 DIABETES MELLITUS WITH OTHER SKIN 01/08/2018 CAMILO MONTANO MD Ot L97.222 NON-PRESSURE CHRONIC ULCER OF LEFT CALF 01/08/2018 CAMILO MONTANO MD, Ot E11.622 TYPE 2 DIABETES MELLITUS WITH OTHER SKIN 01/08/2018 CAMILO MONTANO MD, Ot L97.222 NON-PRESSURE CHRONIC ULCER OF LEFT CALF 01/08/2018 CAMILO MONTANO MD, Ot E11.622 TYPE 2 DIABETES MELLITUS WITH OTHER SKIN 01/08/2018 CAMILO MONTANO MD Ot L97.222 NON-PRESSURE CHRONIC ULCER OF LEFT CALF 01/08/2018 STEFFANIE MORROW APRN Ot Z45.2 ENCOUNTER FOR ADJUSTMENT AND MANAGEMENT 01/08/2018 CAMILO MONTANO MD, Ot E11.622 TYPE 2 DIABETES MELLITUS WITH OTHER SKIN 01/08/2018 CAMILO MONTANO MD Ot L97.222 NON-PRESSURE CHRONIC ULCER OF LEFT CALF 01/08/2018 CAMILO MONTANO MD, Ot E11.622 TYPE 2 DIABETES MELLITUS WITH OTHER SKIN 01/08/2018 CAMILO MONTANO MD Ot L97.222 NON-PRESSURE CHRONIC ULCER OF LEFT CALF 01/08/2018 CAMILO MONTANO MD, Ot E11.622 TYPE 2 DIABETES MELLITUS WITH OTHER SKIN 01/08/2018 CAMILO MONTANO MD Ot L97.222 NON-PRESSURE CHRONIC ULCER OF LEFT CALF 01/08/2018 CAMILO MONTANO MD, Ot E11.622 TYPE 2 DIABETES MELLITUS WITH OTHER SKIN 01/08/2018 CAMILO MONTANO MD Ot L97.222 NON-PRESSURE CHRONIC ULCER OF LEFT CALF 01/08/2018 CAMILO MONTANO MD, Ot E11.622 TYPE 2 DIABETES MELLITUS WITH OTHER SKIN 01/08/2018 CAMILO MONTANO MD Ot L97.222 NON-PRESSURE CHRONIC ULCER OF LEFT CALF 01/08/2018 CAMILO MONTANO MD Ot E11.622 TYPE 2 DIABETES MELLITUS WITH OTHER SKIN 01/08/2018 CAMILO MONTANO MD Ot L97.222 NON-PRESSURE CHRONIC ULCER OF LEFT CALF 01/08/2018 CAMILO MONTANO MD Ot E11.622 TYPE 2 DIABETES MELLITUS WITH OTHER SKIN 01/08/2018 CAMILO MONTANO MD Ot L97.222 NON-PRESSURE CHRONIC ULCER OF LEFT CALF 01/08/2018 STEFFANIE 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 E11.622 TYPE 2 DIABETES MELLITUS WITH OTHER SKIN 01/08/2018 STEFFANIE 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 L97.222 NON-PRESSURE CHRONIC ULCER OF LEFT CALF 01/08/2018 CAMILO MONTANO MD Ot E11.622 TYPE 2 DIABETES MELLITUS WITH OTHER SKIN 01/08/2018 CAMILO MONTANO MD Ot L97.222 NON-PRESSURE CHRONIC ULCER OF LEFT CALF 01/08/2018 CAMILO MONTANO MD, Ot E11.622 TYPE 2 DIABETES MELLITUS WITH OTHER SKIN 01/08/2018 CAMILO MONTANO MD Ot L97.222 NON-PRESSURE CHRONIC ULCER OF LEFT CALF 01/08/2018 CAMILO MONTANO MD, Ot E11.622 TYPE 2 DIABETES MELLITUS WITH OTHER SKIN 01/08/2018 CAMILO MONTANO MD Ot L97.222 NON-PRESSURE CHRONIC ULCER OF LEFT CALF 01/08/2018 CAMILO MONTANO MD Ot E11.622 TYPE 2 DIABETES MELLITUS WITH OTHER SKIN 01/08/2018 CAMILO MONTANO MD Ot L97.222 NON-PRESSURE CHRONIC ULCER OF LEFT CALF 01/08/2018 CAMILO MONTANO MD, Ot E11.622 TYPE 2 DIABETES MELLITUS WITH OTHER SKIN 01/08/2018 CAMILO MONTANO MD Ot L97.222 NON-PRESSURE CHRONIC ULCER OF LEFT CALF 01/08/2018 LEONIDAS MYRICK Ot E11.9 TYPE 2 DIABETES MELLITUS WITHOUT COMPLIC 01/08/2018 LEONIDAS MYRICK Ot G80.9 CEREBRAL PALSY, UNSPECIFIED 01/08/2018 LEONIDAS MYRICK Ot I10 ESSENTIAL (PRIMARY) HYPERTENSION 01/08/2018 LEONIDAS MYRICK Ot Z08 ENCNTR FOR FOLLOW-UP EXAM AFTER TRTMT FO 01/08/2018 LEONIDAS MYRICK Ot Z79.82 DETENTION (CURRENT) USE OF ASPIRIN 01/08/2018 LEONIDAS MYRICK Ot Z79.84 DETENTION (CURRENT) USE OF ORAL HYPOGLYC 01/08/2018 LEONIDAS MYRICK Ot Z79.899 OTHER MANAGER MEDICAID (CURRENT) DRUG THERAPY 01/08/2018 LEONIDAS MYRICK Anurag Ot Z85.3 PERSONAL HISTORY OF MALIGNANT NEOPLASM O 01/08/2018 CAMILO MONTANO MD Ot E11.622 TYPE 2 DIABETES MELLITUS WITH OTHER SKIN 01/08/2018 CAMILO MONTANO MD Ot L97.222 NON-PRESSURE CHRONIC ULCER OF LEFT CALF 01/08/2018 CAMILO MONTANO MD Ot E11.622 TYPE 2 DIABETES MELLITUS WITH OTHER SKIN 01/08/2018 CAMILO MONTANO MD Ot L97.222 NON-PRESSURE CHRONIC ULCER OF LEFT CALF 01/08/2018 CRISTHIANSTEFFANIE R ROCK WORKER Ot E11.622 TYPE 2 DIABETES MELLITUS WITH OTHER SKIN 01/08/2018 CRISTHIAN STEFFANIE R ROCK WORKER Ot L97.222 NON-PRESSURE CHRONIC ULCER OF LEFT CALF 01/08/2018 CRISTHIAN STEFFANIE R ROCK WORKER Ot E11.622 TYPE 2 DIABETES MELLITUS WITH OTHER SKIN 01/08/2018 CRISTHIAN STEFFANIE R ROCK WORKER Ot L97.222 NON-PRESSURE CHRONIC ULCER OF LEFT CALF 01/12/2018 CRISTHIAN STEFFANIE R ROCK WORKER Ot E11.622 TYPE 2 DIABETES MELLITUS WITH OTHER SKIN 01/12/2018 CRISTHIAN STEFFANIE R ROCK WORKER Ot L97.222 NON-PRESSURE CHRONIC ULCER OF LEFT CALF 01/12/2018 CRISTHIAN STEFFANIE R ROCK WORKER Ot E11.622 TYPE 2 DIABETES MELLITUS WITH OTHER SKIN 01/12/2018 CRISTHIAN STEFFANIE R ROCK WORKER Ot L97.222 NON-PRESSURE CHRONIC ULCER OF LEFT CALF 01/30/2018 CRISTHIAN STEFFANIE R ROCK WORKER Ot E11.622 TYPE 2 DIABETES MELLITUS WITH OTHER SKIN 01/30/2018 CRISTHIAN STEFFANIE R ROCK WORKER Ot L97.222 NON-PRESSURE CHRONIC ULCER OF LEFT CALF 03/03/2018 CRISTHIAN STEFFANIE R ROCK WORKER Ot E11.622 TYPE 2 DIABETES MELLITUS WITH OTHER SKIN 03/03/2018 CRISTHIAN STEFFANIE R ROCK WORKER Ot L97.222 NON-PRESSURE CHRONIC ULCER OF LEFT CALF 03/04/2018 Ot E11.622 TYPE 2 DIABETES MELLITUS WITH OTHER SKIN 03/04/2018 Ot L97.222 NON- PRESSURE CHRONIC ULCER OF LEFT CALF 03/09/2018 STEFFANIE MORROW R ROCK WORKER Ot E11.622 TYPE 2 DIABETES MELLITUS WITH OTHER SKIN 03/09/2018 CRISTHIAN STEFFANIE R ROCK WORKER Ot L97.222 NON-PRESSURE CHRONIC ULCER OF LEFT CALF 03/11/2018 Ot E11.622 TYPE 2 DIABETES MELLITUS WITH OTHER SKIN 03/11/2018 Ot L97.222 NON- PRESSURE CHRONIC ULCER OF LEFT CALF 03/16/2018 Ot E11.622 TYPE 2 DIABETES MELLITUS WITH OTHER SKIN 03/16/2018 Ot L97.222 NON- PRESSURE CHRONIC ULCER OF LEFT CALF 03/19/2018 CRISTHIAN STEFFANIE R ROCK WORKER Ot E11.622 TYPE 2 DIABETES MELLITUS WITH OTHER SKIN 03/19/2018 CRISTHIAN, STEFFANIE R ROCK WORKER Ot L97.222 NON-PRESSURE CHRONIC ULCER OF LEFT CALF 03/25/2018 CRISTHIAN STEFFANIE R ROCK WORKER Ot E11.622 TYPE 2 DIABETES MELLITUS WITH OTHER SKIN 03/25/2018 CRISTHIAN STEFFANIE R ROCK WORKER Ot L97.222 NON-PRESSURE CHRONIC ULCER OF LEFT CALF 03/30/2018 CRISTHIAN STEFFANIE R ROCK WORKER Ot E11.622 TYPE 2 DIABETES MELLITUS WITH OTHER SKIN 03/30/2018 CRISTHIAN, STEFFANIE R ROCK WORKER Ot L97.222 NON-PRESSURE CHRONIC ULCER OF LEFT CALF 03/30/2018 CRISTHIAN STEFFANIE R ROCK WORKER Ot E11.622 TYPE 2 DIABETES MELLITUS WITH OTHER SKIN 03/30/2018 CRISTHIAN STEFFANIE R ROCK WORKER Ot L97.222 NON-PRESSURE CHRONIC ULCER OF LEFT CALF 04/06/2018 CRISTHIAN STEFFANIE R ROCK WORKER Ot E11.622 TYPE 2 DIABETES MELLITUS WITH OTHER SKIN 04/06/2018 CRISTHIAN STEFFANIE R ROCK WORKER Ot L97.222 NON-PRESSURE CHRONIC ULCER OF LEFT CALF 04/15/2018 CRISTHIAN STEFFANIE R ROCK WORKER Ot E11.622 TYPE 2 DIABETES MELLITUS WITH OTHER SKIN 04/15/2018 CRISTHIAN STEFFANIE R ROCK WORKER Ot L97.222 NON-PRESSURE CHRONIC ULCER OF LEFT CALF 04/17/2018 STEFFANIE MORROW R ROCK WORKER Ot E11.622 TYPE 2 DIABETES MELLITUS WITH OTHER SKIN 04/17/2018 CRISTHIAN STEFFANIE R ROCK WORKER Ot L97.222 NON-PRESSURE CHRONIC ULCER OF LEFT CALF 04/22/2018 CRISTHIAN STEFFANIE R ROCK WORKER Ot C44.799 OTH MALIGNANT NEOPLASM SKIN/ LEFT LOWER 04/22/2018 CRISTHIAN STEFFANIE R ROCK WORKER Ot E11.622 TYPE 2 DIABETES MELLITUS WITH OTHER SKIN 04/22/2018 CRISTHIAN STEFFANIE R ROCK WORKER Ot L97.222 NON-PRESSURE CHRONIC ULCER OF LEFT CALF 04/23/2018 CRISTHIAN STEFFANIE R ROCK WORKER Ot E11.622 TYPE 2 DIABETES MELLITUS WITH OTHER SKIN 04/23/2018 STEFFANIE 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 L97.222 NON-PRESSURE CHRONIC ULCER OF LEFT CALF 04/24/2018 STEFFANIE 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 E11.622 TYPE 2 DIABETES MELLITUS WITH OTHER SKIN 04/24/2018 STEFFANIE 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 L97.222 NON-PRESSURE CHRONIC ULCER OF LEFT CALF 04/24/2018 CLAUS SANDERSON S DIRECTOR OPERATING Ot 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 04/24/2018 CLAUS SANDERSON S DIRECTOR OPERATING Ot 793.89 OTH (ABN) FINDINGS ON RADIOLOGICAL EXAMI 04/24/2018 RAMEZLEONIDAS N Ot 250.00 DIAB ENZO WO COMPL, TYPE II OR UNSPEC TY 04/24/2018 RAMEZLEONIDAS PETERSON N Ot 343.9 CEREBRAL PALSY NOS 04/24/2018 LEONIDAS MYRICK N Ot V10.3 HX OF BREAST MALIGNANCY 04/24/2018 LEONIDAS MYRICK N Ot V45.71 ACQUIRED ABSENCE OF BREAST AND NIPPLE 04/24/2018 LEONIDAS MYRICK Ot V58.69 OTH MED,LT,CURRENT USE 04/24/2018 LEONIDAS MYRICK N Ot V67.09 SURGERY FOLLOW-UP, OTHER SURGERY 04/24/2018 CLAUS SANDERSON S DIRECTOR OPERATING Ot 250.00 DIAB ENZO WO COMPL, TYPE II OR UNSPEC TY 04/24/2018 SANDERSONCLAUS S DIRECTOR OPERATING Ot 343.9 CEREBRAL PALSY NOS 04/24/2018 SANDERSONCLAUS S DIRECTOR OPERATING Ot 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 04/24/2018 CLAUS SANDERSON S DIRECTOR OPERATING Ot V13.89 PERSONAL HISTORY OF OTHER SPECIFIED DISE 04/24/2018 CLAUS SANDERSON S DIRECTOR OPERATING Ot V45.71 ACQUIRED ABSENCE OF BREAST AND NIPPLE 04/24/2018 CLAUS SANDERSON S DIRECTOR OPERATING Ot V58.69 OTH MED,LT,CURRENT USE 04/24/2018 SANDERSONCLAUS S DIRECTOR OPERATING Ot V67.09 SURGERY FOLLOW-UP, OTHER SURGERY 04/24/2018 SANDERSONCLAUS S DIRECTOR OPERATING Ot 793.89 OTH (ABN) FINDINGS ON RADIOLOGICAL EXAMI 04/24/2018 LEONIDAS MYRICK N Ot 343.9 CEREBRAL PALSY NOS 04/24/2018 LEONIDAS MYRICK N Ot V13.89 PERSONAL HISTORY OF OTHER SPECIFIED DISE 04/24/2018 LEONIDAS MYRICK N Ot V45.71 ACQUIRED ABSENCE OF BREAST AND NIPPLE 04/24/2018 LEONIDAS MYRICK Ot V58.69 OTH MED,LT,CURRENT USE 04/24/2018 LEONIDAS MYRICK Anurag Ot V67.09 SURGERY FOLLOW-UP, OTHER SURGERY 04/24/2018 LEONIDAS MYRICK Ot 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 04/24/2018 LEONIDAS MYRICK Ot 793.89 OTH (ABN) FINDINGS ON RADIOLOGICAL EXAMI 04/24/2018 CLAUS SANDERSON DIRECTOR OPERATING Ot 250.00 DIAB ENZO WO COMPL, TYPE II OR UNSPEC TY 04/24/2018 CLAUS SANDERSON DIRECTOR OPERATING Ot 343.9 CEREBRAL PALSY NOS 04/24/2018 CLAUS SANDERSON DIRECTOR OPERATING Ot V13.89 PERSONAL HISTORY OF OTHER SPECIFIED DISE 04/24/2018 CLAUS SANDERSON DIRECTOR OPERATING Ot V45.71 ACQUIRED ABSENCE OF BREAST AND NIPPLE 04/24/2018 CLAUS SANDERSON DIRECTOR OPERATING Ot V58.69 OTH MED,LT,CURRENT USE 04/24/2018 CLAUS SANDERSON DIRECTOR OPERATING Ot V67.09 SURGERY FOLLOW-UP, OTHER SURGERY 04/24/2018 CLAUS SANDERSON DIRECTOR OPERATING Ot 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 04/24/2018 CLAUS SANDERSON DIRECTOR OPERATING Ot 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 04/24/2018 CLAUS SANDERSON DIRECTOR OPERATING Ot 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 04/24/2018 LEONIDAS MYRICK Anurag Ot 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 04/24/2018 LEONIDAS MYRICK Anurag Ot 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 04/24/2018 CAMILO MONTANO MD Ot E11.622 TYPE 2 DIABETES MELLITUS WITH OTHER SKIN 04/24/2018 CAMILO MONTANO MD Ot L97.222 NON-PRESSURE CHRONIC ULCER OF LEFT CALF 04/24/2018 CAMILO MONTANO MD Ot E11.622 TYPE 2 DIABETES MELLITUS WITH OTHER SKIN 04/24/2018 CAMILO MONTANO MD Ot L97.222 NON-PRESSURE CHRONIC ULCER OF LEFT CALF 04/24/2018 CAMILO MONTANO MD Ot E11.622 TYPE 2 DIABETES MELLITUS WITH OTHER SKIN 04/24/2018 CAMILO MONTANO MD, Ot L97.222 NON-PRESSURE CHRONIC ULCER OF LEFT CALF 04/24/2018 CAMILO MONTANO MD, Ot E11.622 TYPE 2 DIABETES MELLITUS WITH OTHER SKIN 04/24/2018 CAMILO MONTANO MD, Ot L97.222 NON-PRESSURE CHRONIC ULCER OF LEFT CALF 04/24/2018 CAMILO MONTANO MD, Ot E11.622 TYPE 2 DIABETES MELLITUS WITH OTHER SKIN 04/24/2018 CAMILO MONTANO MD Ot L97.222 NON-PRESSURE CHRONIC ULCER OF LEFT CALF 04/24/2018 CAMILO MONTANO MD, Ot E11.622 TYPE 2 DIABETES MELLITUS WITH OTHER SKIN 04/24/2018 CAMILO MONTANO MD, Ot L97.222 NON-PRESSURE CHRONIC ULCER OF LEFT CALF 04/24/2018 CAMILO MONTANO MD, Ot E11.622 TYPE 2 DIABETES MELLITUS WITH OTHER SKIN 04/24/2018 CAMILO MONTANO MD, Ot L97.222 NON-PRESSURE CHRONIC ULCER OF LEFT CALF 04/24/2018 CAMILO MONTANO MD, Ot E11.622 TYPE 2 DIABETES MELLITUS WITH OTHER SKIN 04/24/2018 CAMILO MONTANO MD, Ot L97.222 NON-PRESSURE CHRONIC ULCER OF LEFT CALF 04/24/2018 CAMILO MONTANO MD, Ot E11.622 TYPE 2 DIABETES MELLITUS WITH OTHER SKIN 04/24/2018 CAMILO MONTANO MD Ot L97.222 NON-PRESSURE CHRONIC ULCER OF LEFT CALF 04/24/2018 CAMILO MONTANO MD, Ot E11.622 TYPE 2 DIABETES MELLITUS WITH OTHER SKIN 04/24/2018 CAMILO MONTANO MD, Ot L97.222 NON-PRESSURE CHRONIC ULCER OF LEFT CALF 04/24/2018 CAMILO MONTANO MD, Ot E11.622 TYPE 2 DIABETES MELLITUS WITH OTHER SKIN 04/24/2018 CAMILO MONTANO MD Ot L97.222 NON-PRESSURE CHRONIC ULCER OF LEFT CALF 04/24/2018 CAMILO MONTANO MD, Ot E11.622 TYPE 2 DIABETES MELLITUS WITH OTHER SKIN 04/24/2018 CAMILO MONTANO MD Ot L97.222 NON-PRESSURE CHRONIC ULCER OF LEFT CALF 04/24/2018 CAMILO MONTANO MD, Ot E11.622 TYPE 2 DIABETES MELLITUS WITH OTHER SKIN 04/24/2018 CAMILO MONTANO MD, Ot L97.222 NON-PRESSURE CHRONIC ULCER OF LEFT CALF 04/24/2018 CAMILO MONTANO MD, Ot Z79.2 MANAGER MEDICAID (CURRENT) USE OF ANTIBIOTICS 04/24/2018 CAMILO MONTANO MD, Ot E11.622 TYPE 2 DIABETES MELLITUS WITH OTHER SKIN 04/24/2018 CAMILO MONTANO MD, Ot L97.222 NON-PRESSURE CHRONIC ULCER OF LEFT CALF 04/24/2018 CAMILO MONTANO MD, Ot E11.622 TYPE 2 DIABETES MELLITUS WITH OTHER SKIN 04/24/2018 CAMILO MONTANO MD, Ot L97.222 NON-PRESSURE CHRONIC ULCER OF LEFT CALF 04/24/2018 STEFFANIE MORROW APRN Ot Z45.2 ENCOUNTER FOR ADJUSTMENT AND MANAGEMENT 04/24/2018 STEFFANIE MORROW APRN Ot Z79.2 DETENTION (CURRENT) USE OF ANTIBIOTICS 04/24/2018 CAMILO MONTANO MD, Ot E11.622 TYPE 2 DIABETES MELLITUS WITH OTHER SKIN 04/24/2018 CAMILO MONTANO MD, Ot L97.222 NON-PRESSURE CHRONIC ULCER OF LEFT CALF 04/24/2018 CAMILO MONTANO MD, Ot E11.622 TYPE 2 DIABETES MELLITUS WITH OTHER SKIN 04/24/2018 CAMILO MONTANO MD, Ot L97.222 NON-PRESSURE CHRONIC ULCER OF LEFT CALF 04/24/2018 STEFFANIE MORROW APRN, Ot E11.622 TYPE 2 DIABETES MELLITUS WITH OTHER SKIN 04/24/2018 STEFFANIE MORROW APRN Ot L97.222 NON-PRESSURE CHRONIC ULCER OF LEFT CALF 04/24/2018 CAMILO MONTANO MD, Ot E11.622 TYPE 2 DIABETES MELLITUS WITH OTHER SKIN 04/24/2018 CAMILO MONTANO MD, Ot L97.222 NON-PRESSURE CHRONIC ULCER OF LEFT CALF 04/24/2018 CAMILO MONTANO MD, Ot L97.222 NON-PRESSURE CHRONIC ULCER OF LEFT CALF 04/24/2018 STEFFANIE MORROW APRN Ot E11.622 TYPE 2 DIABETES MELLITUS WITH OTHER SKIN 04/24/2018 STEFFANIE MORROW APRN Ot L97.222 NON-PRESSURE CHRONIC ULCER OF LEFT CALF 04/24/2018 CAMILO MONTANO MD, Ot E11.622 TYPE 2 DIABETES MELLITUS WITH OTHER SKIN 04/24/2018 CAMILO MONTANO MD, Ot L97.222 NON-PRESSURE CHRONIC ULCER OF LEFT CALF 04/24/2018 CAMILO MONTANO MD, Ot E11.622 TYPE 2 DIABETES MELLITUS WITH OTHER SKIN 04/24/2018 CAMILO MONTANO MD, Ot L97.222 NON-PRESSURE CHRONIC ULCER OF LEFT CALF 04/24/2018 CAMILO MONTANO MD, Ot E11.622 TYPE 2 DIABETES MELLITUS WITH OTHER SKIN 04/24/2018 CAMILO MONTANO MD, Ot L97.222 NON-PRESSURE CHRONIC ULCER OF LEFT CALF 04/24/2018 STEFFANIE 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 Z45.2 ENCOUNTER FOR ADJUSTMENT AND MANAGEMENT 04/24/2018 CAMILO MONTANO MD, Ot E11.622 TYPE 2 DIABETES MELLITUS WITH OTHER SKIN 04/24/2018 CAMILO MONTANO MD, Ot L97.222 NON-PRESSURE CHRONIC ULCER OF LEFT CALF 04/24/2018 CAMILO MONTANO MD, Ot E11.622 TYPE 2 DIABETES MELLITUS WITH OTHER SKIN 04/24/2018 CAMILO MONTANO MD, Ot L97.222 NON-PRESSURE CHRONIC ULCER OF LEFT CALF 04/24/2018 CAMILO MONTANO MD, Ot E11.622 TYPE 2 DIABETES MELLITUS WITH OTHER SKIN 04/24/2018 CAMILO MONTANO MD, Ot L97.222 NON-PRESSURE CHRONIC ULCER OF LEFT CALF 04/24/2018 CAMILO MONTANO MD, Ot E11.622 TYPE 2 DIABETES MELLITUS WITH OTHER SKIN 04/24/2018 CAMILO MONTANO MD, Ot L97.222 NON-PRESSURE CHRONIC ULCER OF LEFT CALF 04/24/2018 CAMILO MONTANO MD, Ot E11.622 TYPE 2 DIABETES MELLITUS WITH OTHER SKIN 04/24/2018 CAMILO MONTANO MD, Ot L97.222 NON-PRESSURE CHRONIC ULCER OF LEFT CALF 04/24/2018 CAMILO MONTANO MD, Ot E11.622 TYPE 2 DIABETES MELLITUS WITH OTHER SKIN 04/24/2018 CAMILO MONTANO MD, Ot L97.222 NON-PRESSURE CHRONIC ULCER OF LEFT CALF 04/24/2018 CAMILO MONTANO MD, Ot E11.622 TYPE 2 DIABETES MELLITUS WITH OTHER SKIN 04/24/2018 CAMILO MONTANO MD Ot L97.222 NON-PRESSURE CHRONIC ULCER OF LEFT CALF 04/24/2018 STEFFANIE 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 E11.622 TYPE 2 DIABETES MELLITUS WITH OTHER SKIN 04/24/2018 STEFFANIE 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 L97.222 NON-PRESSURE CHRONIC ULCER OF LEFT CALF 04/24/2018 CAMILO MONTANO MD, Ot E11.622 TYPE 2 DIABETES MELLITUS WITH OTHER SKIN 04/24/2018 CAMILO MONTANO MD Ot L97.222 NON-PRESSURE CHRONIC ULCER OF LEFT CALF 04/24/2018 CAMILO MONTANO MD, Ot E11.622 TYPE 2 DIABETES MELLITUS WITH OTHER SKIN 04/24/2018 CAMILO MONTANO MD Ot L97.222 NON-PRESSURE CHRONIC ULCER OF LEFT CALF 04/24/2018 CAMILO MONTANO MD, Ot E11.622 TYPE 2 DIABETES MELLITUS WITH OTHER SKIN 04/24/2018 CAMILO MONTANO MD, Ot L97.222 NON-PRESSURE CHRONIC ULCER OF LEFT CALF 04/24/2018 CAMILO MONTANO MD, Ot E11.622 TYPE 2 DIABETES MELLITUS WITH OTHER SKIN 04/24/2018 CAMILO MONTANO MD, Ot L97.222 NON-PRESSURE CHRONIC ULCER OF LEFT CALF 04/24/2018 CAMILO MONTANO MD, Ot E11.622 TYPE 2 DIABETES MELLITUS WITH OTHER SKIN 04/24/2018 CAMILO MONTANO MD, Ot L97.222 NON-PRESSURE CHRONIC ULCER OF LEFT CALF 04/24/2018 RAMEZ, LEONIDAS N Ot E11.9 TYPE 2 DIABETES MELLITUS WITHOUT COMPLIC 04/24/2018 RAMEZLEONIDAS N Ot G80.9 CEREBRAL PALSY, UNSPECIFIED 04/24/2018 RAMEZ LEONIDAS N Ot I10 ESSENTIAL (PRIMARY) HYPERTENSION 04/24/2018 RAMEZLEONIDAS N Ot Z08 ENCNTR FOR FOLLOW-UP EXAM AFTER TRTMT FO 04/24/2018 LEONIDAS MYRICK Ot Z79.82 MANAGER MEDICAID (CURRENT) USE OF ASPIRIN 04/24/2018 RAMEZLEONIDAS N Ot Z79.84 DETENTION (CURRENT) USE OF ORAL HYPOGLYC 04/24/2018 LEONIDAS MYRICK Ot Z79.899 OTHER MANAGER MEDICAID (CURRENT) DRUG THERAPY 04/24/2018 RAMEZ LEONIDAS Osborn Ot Z85.3 PERSONAL HISTORY OF MALIGNANT NEOPLASM O 04/24/2018 CAMILO MONTANO MD, Ot E11.622 TYPE 2 DIABETES MELLITUS WITH OTHER SKIN 04/24/2018 CAMILO MONTANO MD Ot L97.222 NON-PRESSURE CHRONIC ULCER OF LEFT CALF 04/24/2018 CAMILO MONTANO MD, Ot E11.622 TYPE 2 DIABETES MELLITUS WITH OTHER SKIN 04/24/2018 CAMILO MONTANO MD Ot L97.222 NON-PRESSURE CHRONIC ULCER OF LEFT CALF 04/24/2018 STEFFANIE MORROW APRN Ot E11.622 TYPE 2 DIABETES MELLITUS WITH OTHER SKIN 04/24/2018 STEFFANIE MORROW APRN Ot L97.222 NON-PRESSURE CHRONIC ULCER OF LEFT CALF 04/24/2018 STEFFANIE MORROW APRN Ot E11.622 TYPE 2 DIABETES MELLITUS WITH OTHER SKIN 04/24/2018 STEFFANIE 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 L97.222 NON-PRESSURE CHRONIC ULCER OF LEFT CALF 04/24/2018 MITRA MORROWN R [employer]OCK WORKER Ot E11.622 TYPE 2 DIABETES MELLITUS WITH OTHER SKIN 04/24/2018 CRISTHIANMITRAN R [employer]OCK WORKER Ot L97.222 NON-PRESSURE CHRONIC ULCER OF LEFT CALF 04/24/2018 Ot E11.622 TYPE 2 DIABETES MELLITUS WITH OTHER SKIN 04/24/2018 Ot L97.222 NON- PRESSURE CHRONIC ULCER OF LEFT CALF 04/24/2018 CRISTHIANMITRAN R [employer]OCK WORKER Ot E11.622 TYPE 2 DIABETES MELLITUS WITH OTHER SKIN 04/24/2018 CRISTHIAN STEFFANIE R [employer]OCK WORKER Ot L97.222 NON-PRESSURE CHRONIC ULCER OF LEFT CALF 04/24/2018 CRISTHIAN STEFFANIE R [employer]OCK WORKER Ot E11.622 TYPE 2 DIABETES MELLITUS WITH OTHER SKIN 04/24/2018 CRISTHIAN, STEFFANIE R [employer]OCK WORKER Ot L97.222 NON-PRESSURE CHRONIC ULCER OF LEFT CALF 04/24/2018 CRISTHIAN STEFFANIE R ROCK WORKER Ot E11.622 TYPE 2 DIABETES MELLITUS WITH OTHER SKIN 04/24/2018 CRISTHIAN STEFFANIE R ROCK WORKER Ot L97.222 NON-PRESSURE CHRONIC ULCER OF LEFT CALF 04/24/2018 CRISTHIANMITRAN R ROCK WORKER Ot E11.622 TYPE 2 DIABETES MELLITUS WITH OTHER SKIN 04/24/2018 CRISTHIAN STEFFANIE R [employer]OCK WORKER Ot L97.222 NON-PRESSURE CHRONIC ULCER OF LEFT CALF 04/24/2018 CRISTHIAN STEFFANIE R ROCK WORKER Ot C44.799 OT MALIGNANT NEOPLASM SKIN/ LEFT LOWER 04/24/2018 CRISTHIAN STEFFANIE R [employer]OCK WORKER Ot E11.622 TYPE 2 DIABETES MELLITUS WITH OTHER SKIN 04/24/2018 CRISTHIAN STEFFANIE R [employer]OCK WORKER Ot L97.222 NON-PRESSURE CHRONIC ULCER OF LEFT CALF 04/24/2018 MITRA MORROWN R [employer]OCK WORKER Ot E11.622 TYPE 2 DIABETES MELLITUS WITH OTHER SKIN 04/24/2018 CRISTHIAN STEFFANIE R [employer]OCK WORKER Ot L97.222 NON-PRESSURE CHRONIC ULCER OF LEFT CALF Procedures Code Description Performed By Performed On 40.23 EXCISE AXILLARY NODE 07/04/2011 85.41 UNILAT SIMPLE MASTECTOMY 07/04/2011 Results Test Result Range Bacteria identification in isolate by anaerobe culture - 01/23/17 09:17 Bacteria identification in isolate by anaerobe culture KATIE BAKER Gram stain microscopy - 01/23/17 09:17 Gram stain microscopy stain. NRG Bacteria identification in wound by culture - 01/23/17 09:17 Bacteria identification in wound by culture [id number] NRG FREE TEXT EXTERNAL SENSITIVITY REPORTED 01/25 08:05 NRG QUANTITY OF GROWTH Scant Growth NRG MRSA AGAR Screening test for MRSA is NEGATIVE (Final to follow) [facility] Bacterial susceptibility panel - 01/23/17 09:17 Oxacillin susceptibility test by minimum inhibitory concentration 0.5 NRG Gentamicin susceptibility test by minimum inhibitory concentration < = NRG Clindamycin susceptibility test by minimum inhibitory concentration <= NRG Erythromycin susceptibility test by minimum inhibitory concentration <= NRG Trimethoprim/sulfamethoxazole susceptibility test by minimum inhibitoryconcentration <= NRG Vancomycin susceptibility test by minimum inhibitory concentration < = NRG Levofloxacin susceptibility test by minimum inhibitory concentration <= NRG Rifampin susceptibility test by minimum inhibitory concentration <= NRG Tetracycline susceptibility test by minimum inhibitory concentration <= NRG Bacteria identification in isolate by anaerobe culture - 04/03/17 09:40 Bacteria identification in isolate by anaerobe culture NOANA NRG Gram stain microscopy - 04/03/17 09:40 GRAM STAIN RESULT NO BACTERIA OBSERVED NRG Bacteria identification in wound by culture - 04/03/17 09:40 Bacteria identification in wound by culture [id number] [facility] FREE TEXT EXTERNAL SENSITIVITIES REPORTED AT 04-05-17 NRG QUANTITY OF GROWTH Moderate Growth NRG MRSA AGAR Screening test for MRSA is NEGATIVE (Final to follow) [facility] Bacterial susceptibility panel - 04/03/17 09:40 Oxacillin susceptibility test by minimum inhibitory concentration 0.5 NRG Gentamicin susceptibility test by minimum inhibitory concentration < = NRG Clindamycin susceptibility test by minimum inhibitory concentration <= NRG Erythromycin susceptibility test by minimum inhibitory concentration <= NRG Trimethoprim/sulfamethoxazole susceptibility test by minimum inhibitoryconcentration <= NRG Vancomycin susceptibility test by minimum inhibitory concentration < = NRG Levofloxacin susceptibility test by minimum inhibitory concentration <= NRG Rifampin susceptibility test by minimum inhibitory concentration <= NRG Tetracycline susceptibility test by minimum inhibitory concentration <= NRG Bacterial susceptibility panel - 04/03/17 09:40 Gentamicin susceptibility test by minimum inhibitory concentration S NRG Erythromycin susceptibility test by minimum inhibitory concentration 2 NRG Vancomycin susceptibility test by minimum inhibitory concentration 1 NRG Ampicillin susceptibility test by minimum inhibitory concentration < = NRG Linezolid susceptibility test by minimum inhibitory concentration 2 NRG Fungus culture - 04/03/17 09:40 FUNGUS REPORT NO FUNGUS GROWTH OBSERVED NRG Whole blood basic metabolic panel - 04/19/17 20:30 Serum or plasma sodium measurement (moles/volume) 138 mmol/L 135-145 Serum or plasma potassium measurement (moles/volume) 3.7 mmol/L 3.6-5.0 Serum or plasma chloride measurement (moles/volume) 99 mmol/L 98-107 Carbon dioxide 26 mmol/L 21-32 Serum or plasma anion gap determination (moles/volume) 13 mmol/L 5-14 Serum or plasma urea nitrogen measurement (mass/volume) 19 mg/dL 7-18 Serum or plasma creatinine measurement (mass/volume) 0.81 mg/dL 0.60-1.30 Serum or plasma urea nitrogen/creatinine mass ratio 23 NRG Serum or plasma creatinine measurement with calculation of estimated glomerular filtration rate > NRG Serum or plasma glucose measurement (mass/volume) 254 mg/dL 70-105 Serum or plasma calcium measurement (mass/volume) 9.7 mg/dL 8.5-10.1 Vancomycin trough - 04/19/17 20:30 Vancomycin trough 12.6 ug/mL 10.0-20.0 Bacteria identification in isolate by anaerobe culture - 06/26/17 09:20 Bacteria identification in isolate by anaerobe culture NOANA NRG Gram stain microscopy - 06/26/17 09:20 GRAM STAIN RESULT FEW WBC'S, NO BACTERIA OBSERVED NRG Bacteria identification in wound by culture - 06/26/17 09:20 Bacteria identification in wound by culture [id number] [facility] FREE TEXT EXTERNAL SENSITIVITY REPORTED AT 1558, 1--18 NRG QUANTITY OF GROWTH Moderate Growth NR MRSA AGAR Screening test for MRSA is NEGATIVE (Final to follow) [facility] Bacterial susceptibility panel - 06/26/17 09:20 Oxacillin susceptibility test by minimum inhibitory concentration 0.5 NRG Gentamicin susceptibility test by minimum inhibitory concentration < = NRG Clindamycin susceptibility test by minimum inhibitory concentration <= NRG Erythromycin susceptibility test by minimum inhibitory concentration <= NRG Trimethoprim/sulfamethoxazole susceptibility test by minimum inhibitoryconcentration S NRG Vancomycin susceptibility test by minimum inhibitory concentration < = NRG Levofloxacin susceptibility test by minimum inhibitory concentration 0.25 NRG Rifampin susceptibility test by minimum inhibitory concentration <= NRG Tetracycline susceptibility test by minimum inhibitory concentration <= NRG Linezolid susceptibility test by minimum inhibitory concentration 2 NRG Fungus culture - 06/26/17 09:20 FUNGUS REPORT NO FUNGUS GROWTH OBSERVED NRG Bacteria identification in isolate by anaerobe culture - 07/31/17 09:29 Bacteria identification in isolate by anaerobe culture NOANA NRG Gram stain microscopy - 07/31/17 09:29 GRAM STAIN RESULT RARE GRAM POSITIVE COCCI NRG Bacteria identification in wound by culture - 07/31/17 09:29 Bacteria identification in wound by culture [id number] [facility] FREE TEXT EXTERNAL SENSITIVITY REPORTED 08/02 07:25 NRG QUANTITY OF GROWTH Abundant Growth NRG MRSA AGAR Screening test for MRSA is NEGATIVE (Final to follow) NR Bacterial susceptibility panel - 07/31/17 09:29 Oxacillin susceptibility test by minimum inhibitory concentration 0.5 NRG Gentamicin susceptibility test by minimum inhibitory concentration < = NRG Clindamycin susceptibility test by minimum inhibitory concentration <= NRG Erythromycin susceptibility test by minimum inhibitory concentration <= NRG Trimethoprim/sulfamethoxazole susceptibility test by minimum inhibitoryconcentration S NRG Vancomycin susceptibility test by minimum inhibitory concentration < = NRG Levofloxacin susceptibility test by minimum inhibitory concentration <= NRG Rifampin susceptibility test by minimum inhibitory concentration <= NRG Tetracycline susceptibility test by minimum inhibitory concentration <= NRG Linezolid susceptibility test by minimum inhibitory concentration 2 NRG Fungus culture - 07/31/17 09:29 FUNGUS REPORT NO FUNGUS GROWTH OBSERVED NRG Bacteria identification in isolate by anaerobe culture - 09/11/17 09:28 Bacteria identification in isolate by anaerobe culture NOANA NRG Gram stain microscopy - 09/11/17 09:28 GRAM STAIN RESULT FEW GRAM POSITIVE COCCI RESEMBLING STAPH NRG Bacteria identification in wound by culture - 09/11/17 09:28 Bacteria identification in wound by culture [id number] [facility] FREE TEXT EXTERNAL SENSITIVITY REPORTED 09/13 13:20 NRG QUANTITY OF GROWTH Scant Growth NRG Bacterial susceptibility panel - 09/11/17 09:28 Oxacillin susceptibility test by minimum inhibitory concentration > = NRG Gentamicin susceptibility test by minimum inhibitory concentration < = NRG Clindamycin susceptibility test by minimum inhibitory concentration <= NRG Erythromycin susceptibility test by minimum inhibitory concentration >= NRG Trimethoprim/sulfamethoxazole susceptibility test by minimum inhibitoryconcentration S NRG Vancomycin susceptibility test by minimum inhibitory concentration 2 NRG Levofloxacin susceptibility test by minimum inhibitory concentration >= NRG Rifampin susceptibility test by minimum inhibitory concentration <= NRG Tetracycline susceptibility test by minimum inhibitory concentration >= NRG Linezolid susceptibility test by minimum inhibitory concentration 1 NRG Fungus culture - 09/11/17 09:28 FUNGUS REPORT NO FUNGUS GROWTH OBSERVED NRG Bacteria identification in isolate by anaerobe culture - 10/23/17 09:35 Bacteria identification in isolate by anaerobe culture NG NRG Gram stain microscopy - 10/23/17 09:35 GRAM STAIN RESULT NO BACTERIA OBSERVED NRG Bacteria identification in wound by culture - 10/23/17 09:35 Bacteria identification in wound by culture NG NRG Fungus culture - 10/23/17 09:35 Fungus culture NG NRG Gram stain microscopy - 04/16/18 09:40 Gram stain microscopy GRAM STAIN [facility]FOR[facility] NRG Bacteria identification in wound by culture - 04/16/18 09:40 Bacteria identification in wound by culture SEE COMMEN NRG FREE TEXT EXTERNAL VARYING MORPHOLOGIES NRG QUANTITY OF GROWTH . NRG FREE TEXT ENTRY 2 SENSITIVITY REPORTED 04/18/18 10:05 [facility] Sensitivity Panel - 04/16/18 09:40 Gentamicin susceptibility test by minimum inhibitory concentration < = NRG Levofloxacin susceptibility test by minimum inhibitory concentration <= NRG Ampicillin susceptibility test by minimum inhibitory concentration > NRG Cefazolin susceptibility test by minimum inhibitory concentration > NRG Ceftriaxone susceptibility test by minimum inhibitory concentration <= NRG Piperacillin/tazobactam susceptibility test by minimum inhibitory concentration S NRG Ciprofloxacin susceptibility test by minimum inhibitory concentration <= NRG Meropenem susceptibility test by minimum inhibitory concentration < = NRG Amoxicillin and clavulanate potassium susc APOORVA > NRG Imipenem susceptibility test by minimum inhibitory concentration S NRG Encounters ACCT No. Visit Date/Time Discharge Status Pt. Type Provider Facility Loc./Unit Complaint [id number] 04/21/2018 10:13:00 04/21/2018 23:59:59 CLS Outpatient STEFFANIE MORROW APRN [facility] [id number] 04/16/2018 08:54:00 04/16/2018 23:59:59 CLS Outpatient STEFFANIE MORROW APRN [facility] [id number] 04/02/2018 08:54:00 04/02/2018 23:59:59 CLS Outpatient STEFFANIE MORROW APRN [facility] [id number] 03/26/2018 09:01:00 03/26/2018 23:59:59 CLS Outpatient CRISTHIANMITRAAnurag Correa [employer] WORK[employer] [facility] [id number] 02/26/2018 08:54:00 02/26/2018 23:59:59 CLS Outpatient STEFFANIE MORROW R [employer] WORK[employer] [facility] [id number] 01/08/2018 09:05:00 01/08/2018 23:59:59 CLS Outpatient STEFFANIE MORROW R [employer] WORK[employer] [facility] [id number] 12/23/2017 09:10:00 12/23/2017 23:59:59 CLS Outpatient STEFFANIE MORROW R [employer] WORK[employer] [facility] [id number] 12/11/2017 09:03:00 12/11/2017 23:59:59 CLS Outpatient STEFFANIE MORROW [employer] WORK[employer] [facility] [id number] 11/13/2017 09:06:00 11/13/2017 23:59:59 CLS Outpatient CAMILO MONTANO MD [facility] [id number] 10/30/2017 08:56:00 10/30/2017 23:59:59 CLS Outpatient CAMILO MONTANO MD [facility] [id number] 10/27/2017 13:16:00 10/27/2017 23:59:59 CLS Outpatient LEONIDAS MYRICK [facility] ONC [id number] 10/23/2017 09:02:00 10/23/2017 23:59:59 CLS Outpatient CAMILO MONTANO MD [facility] [id number] 10/20/2017 14:07:00 10/20/2017 23:59:59 CLS Outpatient LEONIDAS MYRICK [facility] RAD DCIS D05.10 [id number] 10/09/2017 08:42:00 10/09/2017 23:59:59 CLS Outpatient CAMILO MONTANO MD [facility] [id number] 09/25/2017 08:53:00 09/25/2017 23:59:59 CLS Outpatient CAMILO MONTANO MD [facility] [id number] 09/18/2017 09:51:00 09/18/2017 23:59:59 CLS Outpatient CAMILO MONTANO MD [facility] [id number] 09/11/2017 08:47:00 09/11/2017 23:59:59 CLS Outpatient CAMILO MONTANO MD [facility] [id number] 09/04/2017 08:53:00 09/04/2017 23:59:59 CLS Outpatient [facility]FFANIE MORROW [facility] [id number] 08/28/2017 08:57:00 08/28/2017 23:59:59 CLS Outpatient CAMILO MONTANO MD [facility] [id number] 08/21/2017 08:56:00 08/21/2017 23:59:59 CLS Outpatient CAMILO MONTANO MD [facility] [id number] 08/14/2017 09:01:00 08/14/2017 23:59:59 CLS Outpatient CAMILO MONTANO MD [facility] [id number] 08/07/2017 08:56:00 08/07/2017 23:59:59 CLS Outpatient CAMILO MONTANO MD [facility] [id number] 07/31/2017 09:01:00 07/31/2017 23:59:59 CLS Outpatient CAMILO MONTANO MD [facility] [id number] 07/24/2017 08:58:00 07/24/2017 23:59:59 CLS Outpatient CAMILO MONTANO MD [facility] [id number] 07/17/2017 08:47:00 07/17/2017 23:59:59 CLS Outpatient CAMILO MONTANO MD [facility] [id number] 07/14/2017 00:11:00 07/14/2017 23:59:59 CLS Preadmit STEFFANIE MORROW APRN [facility] [id number] 04/18/2017 12:11:00 07/13/2017 00:01:00 DIS Outpatient STEFFANIE MORROW APRN [facility] [id number] 07/10/2017 08:54:00 07/10/2017 23:59:59 CLS Outpatient CAMILO MONTANO MD [facility] [id number] 07/03/2017 08:54:00 07/03/2017 23:59:59 CLS Outpatient CAMILO MONTANO MD [facility] [id number] 06/26/2017 08:53:00 06/26/2017 23:59:59 CLS Outpatient CAMILO MONTANO MD [facility] [id number] 06/17/2017 09:16:00 06/17/2017 23:59:59 CLS Outpatient STEFFANIE MORROW APRN [facility] [id number] 06/12/2017 09:12:00 06/12/2017 23:59:59 CLS Outpatient CAMILO MONTANO MD [facility] [id number] 06/05/2017 09:03:00 06/05/2017 23:59:59 CLS Outpatient CAMILO MONTANO MD [facility] [id number] 05/29/2017 09:04:00 05/29/2017 23:59:59 CLS Outpatient STEFFANIE MORROW APRN [facility] [id number] 05/22/2017 09:04:00 05/22/2017 23:59:59 CLS Outpatient CAMILO MONTANO MD [facility] [id number] 05/15/2017 08:56:00 05/15/2017 23:59:59 CLS Outpatient CAMILO MONTANO MD [facility] [id number] 05/02/2017 11:23:00 05/02/2017 23:59:59 CLS Outpatient STEFFANIE MORROW APRN [facility] PT ON IV ANTIBIOTICS [id number] 05/01/2017 08:58:00 05/01/2017 23:59:59 CLS Outpatient CAMILO MONTANO MD [facility] [id number] 04/24/2017 09:03:00 04/24/2017 23:59:59 CLS Outpatient CAMILO MONTANO MD [facility] [id number] 04/19/2017 21:31:00 04/19/2017 23:59:59 CLS Outpatient CAMILO MONTANO MD [facility] CVS VANCOMYCIN THERAPY [id number] 04/17/2017 09:07:00 04/17/2017 23:59:59 CLS Outpatient CAMILO MONTANO MD [facility] [id number] 04/03/2017 08:58:00 04/03/2017 23:59:59 CLS Outpatient ACMILO MONTANO MD [facility] [id number] 03/27/2017 08:55:00 03/27/2017 23:59:59 CLS Outpatient CAMILO MONTANO MD [facility] [id number] 03/20/2017 09:16:00 03/20/2017 23:59:59 CLS Outpatient CAMILO MONTANO MD [facility] [id number] 03/13/2017 09:02:00 03/13/2017 23:59:59 CLS Outpatient CAMILO MONTANO MD [facility] [id number] 03/06/2017 09:08:00 03/06/2017 23:59:59 CLS Outpatient CAMILO MONTANO MD [facility] [id number] 02/27/2017 08:46:00 02/27/2017 23:59:59 CLS Outpatient CAMILO MONTANO MD [facility] [id number] 02/20/2017 08:56:00 02/20/2017 23:59:59 CLS Outpatient CAMILO MONTANO MD [facility] [id number] 02/13/2017 09:01:00 02/13/2017 23:59:59 CLS Outpatient CAMILO MONTANO MD [facility] [id number] 02/06/2017 08:53:00 02/06/2017 23:59:59 CLS Outpatient CAMILO MONTANO MD [facility] [id number] 02/05/2017 15:54:00 02/05/2017 23:59:59 CLS Outpatient CAMILO MONTANO MD [facility] [id number] 01/23/2017 08:52:00 01/23/2017 23:59:59 CLS Outpatient CAMILO MONTANO MD [facility] [id number] 01/16/2017 09:01:00 01/16/2017 23:59:59 CLS Outpatient CAMILO MONTANO MD [facility] [id number] 01/02/2017 08:52:00 01/13/2017 16:00:00 DIS Outpatient CAMILO MONTANO MD [facility] [id number] 10/28/2016 12:53:00 10/28/2016 23:59:59 CLS Outpatient LEONIDAS MYRICK [facility] ONC [id number] 10/21/2016 13:26:00 10/21/2016 23:59:59 CLS Outpatient SANDERSONCLAUS S DIRECTOR OPERATING [facility] RAD DCIS [id number] 10/24/2015 12:48:00 10/24/2015 23:59:59 CLS Outpatient SANDERSONISSAAH S DIRECTOR OPERATING [facility] ONC [id number] 10/16/2015 13:09:00 10/16/2015 23:59:59 CLS Outpatient CLAUS SANDERSON S DIRECTOR OPERATING [facility] RAD DCIS [id number] 10/25/2014 14:12:00 10/25/2014 23:59:59 CLS Outpatient CLAUS SANDERSON S DIRECTOR OPERATING [facility] ONC [id number] 09/22/2014 13:14:00 09/22/2014 23:59:59 CLS Outpatient LEONIDAS MYRICK [facility] RAD SCREENING [id number] 02/17/2014 13:54:00 02/17/2014 23:59:59 CLS Outpatient LEONIDAS MYRICK [facility] ONC [id number] 09/20/2013 12:58:00 09/20/2013 23:59:59 CLS Outpatient CLAUS SANDERSON S DIRECTOR OPERATING [facility] RAD SIX MONTH F/U [id number] 07/27/2013 13:24:00 07/27/2013 23:59:59 CLS Outpatient CLAUS SANDERSON [facility] ONC [id number] 03/18/2013 13:51:00 03/18/2013 23:59:59 CLS Outpatient CLAUS SANDERSON [facility] RAD DCIS,LT BREAST CALCIFICATION,SIX MONTH F/U [id number] 01/25/2013 13:47:00 01/25/2013 23:59:59 CLS Outpatient RAMEZ LEONIDAS Anurag [facility] ONC [id number] 05/14/2018 13:45:00 PEN Preadmit [facility] LOWER LEG [id number] 01/29/2018 08:57:00 Document Registration [id number] 09/15/2012 14:09:00 Document Registration [id number] 07/30/2012 14:42:00 Document Registration [id number] 03/17/2012 09:30:00 Document Registration [id number] 01/30/2012 12:59:00 Document Registration [id number] 09/16/2011 13:25:00 Document Registration [id number] 07/25/2011 13:23:00 Document Registration [id number] 07/04/2011 06:27:00 Document Registration [id number] 06/27/2011 14:05:00 Document Registration [id number] 05/30/2011 13:24:00 Document Registration [id number] 05/07/2011 09:58:00 Document Registration [id number] 04/03/2011 13:54:00 Document Registration [id number] 08/27/2010 13:46:00 Document Registration [id number] 08/10/2010 13:32:00 Document Registration
== END 2018-05-14 15:50 ==
LOC: SDC 09:52
PROVIDERS: ATTEND Surgery
DX: C44.729 Squamous cell carcinoma of skin of left lower limb, including hip (principal); E11.9 Type 2 diabetes mellitus without complications; I10 Essential (primary) hypertension; E78.5 Hyperlipidemia, unspecified; K21.9 Gastro-esophageal reflux disease without esophagitis; G80.9 Cerebral palsy, unspecified; Z79.82 Long term (current) use of aspirin; Z79.84 Long term (current) use of oral hypoglycemic drugs; Z79.899 Other long term (current) drug therapy
CPT/HCPCS: 82962; 87081

== ENCOUNTER → 2018-10-22 | Outpatient (CLI) | payer MEDICARE, MEDICAID ==
[~2018-10-22] MED LIST changes: +ACHD5005 PO; -AMLO5TAB7 PO; +AMLO5TAB9 PO
--- NOTE | 2018-10-22 21:30 | Diagnostic Imaging Report ---
INDICATION: Ductal carcinoma in situ of the right breast, status post mastectomy. Study is performed to evaluate the left breast. Patient refuses screening mammography of the left breast. FINDINGS: Study is limited. Patient had to be scan while on a wheelchair. All 4 quadrants in the retroareolar region were evaluated. There is a simple approximately 5 mm x 4 mm cyst at the 2 o'clock location of the left breast, 4 cm from the nipple. 5 mm x 6 cm simple cyst is noted 6 o'clock location, 2 cm from the nipple. No solid mass is detected. IMPRESSION: Simple cysts left breast, as described. ACR BI-RADS Category 2: Benign findings. Dictated by: Dictated on workstation # [id number]
== END ==
LOC: RAD 13:05
PROVIDERS: ATTEND Nurse Practitioner Adult Health
DX: N60.02 Solitary cyst of left breast (principal); D05.11 Intraductal carcinoma in situ of right breast; Z90.11 Acquired absence of right breast and nipple
CPT/HCPCS: 76641

== ENCOUNTER → 2018-10-26 | Outpatient (CLI) | payer MEDICARE, MEDICAID | LOC: ONC 13:21 | PROVIDERS: ATTEND Internal Medicine Hematology & Oncology | DX: Z08 Encounter for follow-up examination after completed treatment for malignant neoplasm (principal); Z85.3 Personal history of malignant neoplasm of breast; G80.9 Cerebral palsy, unspecified; Z79.899 Other long term (current) drug therapy; N60.02 Solitary cyst of left breast; D50.9 Iron deficiency anemia, unspecified; Z99.3 Dependence on wheelchair | CPT/HCPCS: 99213 ==

== ENCOUNTER → 2020-11-27 | Outpatient (CLI) | payer MEDICARE, MEDICAID ==
[~2020-11-27] MED LIST changes: +AMLO-250 PO; -AMLO5TAB9 PO; +ENAL10TA16 PO; +MULT-567 PO; -MULT1TAB69 PO
--- NOTE | 2020-11-28 12:06 | Diagnostic Imaging Report ---
Indication: History of right breast carcinoma status post mastectomy. States performed for a screening of the left breast. Patient refused mammography. Correlation is made with prior left breast ultrasound from 10/22/2018. Sonographic interrogation of all 4 quadrants in the retroareolar region of the left breast was performed. At the 2:00 location, 4 cm from the nipple there is a 4 mm x 4 mm x 3 mm cyst, stable when compared with prior exam. There are 2 cysts located in the 9:00 retroareolar location, one measuring 5 mm x 5 mm and a 2nd measuring 6 mm x 7 mm. No cyst is seen at the 6:00 location on today's study. No solid masses are detected. Impression: BI-RADS Category 2 Simple cysts left breast, as described. ACR BI-RADS Category 2: Benign findings. Dictated by: Dictated on workstation # [id number]
== END ==
LOC: RAD 13:57
PROVIDERS: ATTEND Physician Assistant
DX: N60.02 Solitary cyst of left breast (principal); Z85.3 Personal history of malignant neoplasm of breast; Z90.11 Acquired absence of right breast and nipple
CPT/HCPCS: 76641

== ENCOUNTER → 2023-02-04 | Outpatient (CLI) | payer MEDICARE, MEDICAID ==
[~2023-02-04] MED LIST changes: -ENAL10TA16 PO; +ENLP10T PO
--- NOTE | 2023-02-04 18:46 | Diagnostic Imaging Report ---
PROCEDURE: Pelvic comp/transvaginal sonogram. TECHNIQUE: Complete transabdominal and transvaginal pelvic ultrasound was performed. In addition, limited pelvic Doppler was performed. INDICATION: Postmenopausal bleeding. FINDINGS: Uterus is anteverted measuring 8.3 x 5.0 x 4.9 cm. Endometrium is thickened at 11 mm. Myometrium is heterogeneous but no discrete mass is identified. Right ovary measures 3.2 x 1.4 x 3.2 cm. There was difficulty obtaining blood flow which could be on a technical basis. Left ovary cannot be visualized due to overlying bowel gas. IMPRESSION: 1. Thickened endometrium of 11 mm for postmenopausal patient. 2. Nonvisualized left ovary due to overlying bowel gas. Dictated by: Dictated on workstation # [id number]
== END ==
LOC: RAD 14:00
PROVIDERS: ATTEND Obstetrics & Gynecology
DX: N95.0 Postmenopausal bleeding (principal); R93.89 Abnormal findings on diagnostic imaging of other specified body structures
CPT/HCPCS: 76830; 76856

== ENCOUNTER → 2023-03-26 | Outpatient (CLI) | payer MEDICARE, MEDICAID ==
[2023-03-26 21:01] LABS: ALBUMIN 4.1 GM/DL (3.2-4.5); POTASSIUM 5.8 MMOL/L (3.6-5.0)
[2023-03-26 21:03] LABS: CALCIUM 8.6 MG/DL (8.5-10.1)
[2023-03-26 21:04] LABS: TOTAL PROTEIN 7.3 GM/DL (6.4-8.2)
[2023-03-26 21:06] LABS: BILIRUBIN,TOTAL 0.3 MG/DL (0.1-1.0)
[2023-03-26 21:07] LABS: CREATININE SERUM 1.24 MG/DL (0.60-1.30)
== END ==
LOC: CVS 19:15
PROVIDERS: ATTEND Internal Medicine
DX: R06.02 Shortness of breath (principal)
CPT/HCPCS: 80053